=== PATIENT | female | born 1985 | race Caucasian/White ===

== ENCOUNTER 2022-10-05 11:40 | Emergency (ER) | payer BC, SELFPAY ==
[2022-10-05 12:01] VITALS: BP 122/76; PULSE 91; RESP 20; TEMP 36.5; O2SAT 100; BMI 35.5
--- NOTE | 2022-10-05 12:36 | CRLHL7_ITS ---
For Patients: As a result of the Century Cures Act, medical imaging exams and procedure reports are released immediately into your electronic medical record. You may view this report before your referring provider. If you have questions, please contact your health care provider. INDICATION: Foot injury TECHNIQUE: Foot radiograph 3 views left COMPARISON: None FINDINGS: Bone: No acute fractures or aggressive bone lesions are identified. Joint: The visualized hindfoot, midfoot, and forefoot joints are unremarkable in appearance. No significant ankle effusion is seen. Soft tissue: Unremarkable. No radiopaque foreign bodies are seen. IMPRESSION: 1. No acute osseous injuries or abnormalities are noted. Dictated by: Wade Paula MD @ 10/05/2022 13:50:01 (Electronically Signed)
--- NOTE | 2022-10-05 12:45 | ED.GENADULT ---
HPI - General Adult General Date Seen: 10/05/22 Chief complaint: Extremity Pain/Injury, Lower Stated complaint: Rolled LT foot 4 days ago Time Seen by Provider: 10/05/22 12:27 Source: patient History of Present Illness HPI narrative: Patient is a 37-year-old woman who says she rolled her left foot while walking 4 days ago. It continues to hurt with weight-bearing so she thought she should get it checked out. 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 She has had to continue to work the past several days. It is not particularly swollen. Hurts in the mid foot, not so much the lateral foot. No ankle pain. No other injuries or complaints. No numbness or loss of function. Related Data Home Medications Medication Instructions Recorded Confirmed No Known Home Medications 10/05/22 10/05/22 Allergies Allergy/AdvReac Type Severity Reaction Status Date / Time sumatriptan [From Imitrex] Allergy Verified 10/05/22 12:07 topiramate [From Topamax] Allergy Verified 10/05/22 12:07 cefaclor [From Ceclor] AdvReac Unverified 10/05/22 12:07 ibuprofen AdvReac Verified 10/05/22 12:07 some insulins Allergy Uncoded 10/05/22 12:07 Review of Systems Status of ROS: Reports: 6 or more systems reviewed and unremarkable except as noted in History and below [employer] [facility] [facility] Social History Smoking Status: Current every day smoker What tobacco products do you use: cigarettes Do you use any of these nicotine containing products: Vaping Products Second hand tobacco smoke exposure: No How often do you have a drink containing alcohol: never AUDIT-C Alcohol total score: 0 Non-prescribed substance use: former substance user 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 Extremities: Examination of the left lower extremity shows no bruising, swelling, or deformity. She has no tenderness of the lower leg or escobar, proximal fibula, ankle, or lateral foot. She has some tenderness over the midfoot dorsally and on the plantar surface. There is no erythema or warmth. Distal CMS is normal. Skin: Warm and dry. Intact. Const: Vital Signs, click to edit/add: Vital Signs - 24 hr 10/05/22 12:01 Temperature 97.7 F Pulse Rate [Right Pulse Oximeter] 91 Respiratory Rate 20 Blood Pressure [Ri ght Upper Arm] 122/76 Pulse Oximetry 100 Documenting provider has reviewed patient's vital signs: yes Course Course Hospital Course: X-rays obtained of the left foot. By my review these show no acute bony abnormalities. Final radiology report is read likewise. 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 Instead, we will try a postop shoe, ibuprofen and/or Tylenol as needed, ice. Anticipate that this will improve with time. If no improvement over the next couple weeks, follow-up with primary care. Vital Signs Vital signs: Initial Vital Signs Temperature 97.7 F 10/05/22 12:01 Temperature Source Temporal Artery Scan 10/05/22 12:01 Pulse Rate 91 10/05/22 12:01 Respiratory Rate 20 10/05/22 12:01 Blood Pressure 122/76 10/05/22 12:01 Blood Pressure Mean 91 10/05/22 12:01 Pulse Oximetry 100 10/05/22 12:01 Vital Signs Temperature 97.7 F 10/05/22 12:01 Pulse Rate 91 10/05/22 12:01 Respiratory Rate 20 10/05/22 12:01 Blood Pressure 122/76 10/05/22 12:01 Pulse Oximetry 100 10/05/22 12:01 Temperature 97.7 F 10/05/22 12:01 Pulse Rate 91 10/05/22 12:01 Respiratory Rate 20 10/05/22 12:01 Blood Pressure 122/76 10/05/22 12:01 Pulse Oximetry 100 10/05/22 12:01 Discharge Plan Discharge Clinical Impression: Sprain of left foot Patient Disposition: Home, Self-Care Condition: Stable Instructions: Foot Sprain (ED) Additional Instructions: Postop shoe as needed for comfort. Ibuprofen, Tylenol, ice. Primary care follow-up if no improvement over the next 1-2 weeks. Prescriptions: No Action No Known Home Medications Follow Up/Referrals: Shena Aldana MD [Primary Care Provider] - Stand Alone Forms: [facility] Info Instructions
--- NOTE | 2022-10-05 13:00 | ED.NURSE ---
Pt to and back from radiology
== END 2022-10-05 13:45 | disposition home or self-care (01) ==
PROVIDERS: Emergency Provider Emergency Medicine; PCP Family Medicine
DX: S93.602A Unspecified sprain of left foot, initial encounter (principal)
CPT/HCPCS: 73630; 99283

== ENCOUNTER 2022-12-05 17:06 | Emergency (ER) | payer BC, SELFPAY ==
[2022-12-05 17:14] VITALS: BP 135/86; PULSE 88; RESP 18; TEMP 36.4; O2SAT 100; BMI 37.1
--- NOTE | 2022-12-05 17:58 | ED_ITS ---
HPI - General Adult General Time Seen by Provider: 17:58 Date Seen: 12/05/22 Chief complaint: Post Op Complication Stated complaint: Post Op Pain Time Seen by Provider: 12/05/22 17:57 Source: patient and RN notes reviewed Mode of arrival: ambulatory Limitations: no limitations History of Present Illness HPI narrative: Patient is a 37-year-old female that had her gallbladder out about a week ago at [facility]. She is states it was inflamed and her ejection fraction was at 17%. She had oxycodone for the 1st few days and transition to Tylenol after that. She had up post surgical follow-up yesterday and was feeling better. She initially had some pain with breathing and in the shoulders the 1st couple days but that is gone away. She is having no difficulty breathing, no chest pain at this time. 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 She states her pain is worse than what it was before she had her gallbladder out. She has had no acute nausea vomiting diarrhea, no acute fevers. She has been eating and drinking fine prior to this. She is just on Tylenol right now. She does not take ibuprofen because she has intolerance to it and had an overdose with it prior. We reviewed Toradol, she feels it never helps. Did prior to having her gallbladder out, it did not help her pain at all. She is uncomfortable at this time. Related Data Previous Rx's Medication Instructions Recorded azithromycin 250 mg tablet 250 mg PO DAILY 4 days #4 tabs 12/05/22 Allergies Allergy/AdvReac Type Severity Reaction Status Date / Time sumatriptan [From Imitrex] Allergy Verified 10/05/22 12:07 topiramate [From Topamax] Allergy Verified 10/05/22 12:07 cefaclor [From Ceclor] AdvReac Unverified 10/05/22 12:07 ibuprofen AdvReac Verified 10/05/22 12:07 some insulins Allergy Uncoded 10/05/22 12:07 Review of Systems Status of ROS: Reports: 10 or more systems reviewed and unremarkable except as noted in History and below [facility] Surgical History (Updated 12/05/22 @ 21:43 by Elizabeth Caputo MD) Status post cholecystectomy Social History Smoking Status: Current every day smoker What tobacco products do you use: cigarettes Do you use any of these nicotine containing products: Vaping Products Second hand tobacco smoke exposure: No How often do you have a drink containing alcohol: never AUDIT-C Alcohol total score: 0 Non-prescribed substance use: former substance user 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 HENMT: Common normals: normocephalic, head/scalp atraumatic, hearing grossly normal bilaterally, external ears normal, external nose normal, nasal mucous membranes and turbinates normal, moist oral mucous membranes and oropharynx normal Head and scalp: normocephalic and atraumatic Nose: external nose normal and nasal mucous membranes and turbinates normal External ear: external ears normal Eye: Common normals: PERRL, EOMs intact bilaterally, conjunctivae normal and no scleral icterus Conjunctiva: conjunctiva(e) normal Pupil: PERRL Neck & C-Spine: Common normals: full ROM, no lymphadenopathy, supple, no meningeal signs, no JVD, thyroid normal and no carotid bruits Thyroid: thyroid normal Resp: Common normals: normal respiratory effort, no retractions, no use of accessory muscles and clear to auscultation bilaterally Auscultation: clear to auscultation bilaterally Cardio: Common normals: no JVD, regular rate, regular rhythm, S1 normal heart sound, S2 normal heart sound, no gallops, no clicks and no murmurs Rate: regular rate Rhythm: regular rhythm Heart sounds: S1 normal and S2 normal GI: Other: Her surgical scars have glue over them, looked to be clean dry and intact without any evidence of any erythema. She has right upper quadrant tenderness in states that is where her pain is. No true rebound or guarding. Baseline abdomen is obese, cannot say that the pain is out of proportion to what I would fine in of postoperative surgical patient. Certainly does not seem to have an acute surgical abdomen at this time. Neuro: Common normals: oriented x3 Sensorium/orientation: alert Meningeal signs: no meningeal signs Psych: Appearance: well kempt Course Course Hospital Course: Have reviewed with patient that I will give her dose of morphine for pain management. Unfortunately, I do not feel with her symptoms that they can reassure her that nothing internally is wrong without imaging. She states when she reviewed her discharge surgical papers, she felt that she was supposed to come in given her symptoms. We will check of full complement of labs. Need to rule out postoperative complications. Reevaluation(s) Reevaluation #1: Have reviewed with patient her CT findings. There may be a focus of infection within the right lower lobe. She has had recent surgery with intubation, is a smoker, do feel with mildly elevated white count in the CT showing no other changes within the abdomen, no concerning postsurgical changes, would consider treating with oral antibiotics for respiratory infection. She unfortunately is allergic to cephalosporins. Will give her oral dose of azithromycin here t onight and send the rest of the prescription into the pharmacy for her. Did provide her a copy of the CT report to take to her surgeon or her primary care provider, may need further follow-up for a right adrenal nodule on an outpatient basis. Time: 21:37 Vital Signs Vital signs: Initial Vital Signs Temperature 97.6 F 12/05/22 17:14 Temperature Source Temporal Artery Scan 12/05/22 17:14 Pulse Rate 88 12/05/22 17:14 Respiratory Rate 18 12/05/22 17:14 Blood Pressure 135/86 12/05/22 17:14 Blood Pressure Mean 102 12/05/22 17:14 Blood Pressure Position Sitting 12/05/22 17:14 Pulse Oximetry 100 12/05/22 17:14 Oxygen Delivery Method 12/05/22 17:14 Vital Signs Temperature 97.6 F 12/05/22 17:14 Pulse Rate 88 12/05/22 17:14 Respiratory Rate 18 12/05/22 17:14 Blood Pressure 135/86 12/05/22 17:14 Pulse Oximetry 100 12/05/22 17:14 Oxygen Delivery Method 12/05/22 17:14 Temperature 97.6 F 12/05/22 17:14 Pulse Rate 88 12/05/22 17:14 Respiratory Rate 16 12/05/22 18:25 Blood Pressure 113/68 12/05/22 18:25 Pulse Oximetry 96 12/05/22 18:25 Oxygen Delivery Method 12/05/22 18:25 Medical Decision Making Lab Data Lab results reviewed: Yes I reviewed the patient's lab results Labs: Lab Results 12/05/22 12/05/22 12/05/22 Range/Units 18:20 18:20 18:20 WBC 14.20 H (4.50-11.00) K/uL RBC 4.60 (4.00-5.20) m/uL Hgb 12.6 (12.0-16.0) gm/dL Hct 38.7 (33.0-51.0) % MCV 84 (80-100) fL MCH 27 (26-34) pg MCHC 33 (32-36) gm/dL RDW Coeff of Sammi 14.6 (11.5-15.5) % Plt Count 592 H (140-440) K/uL Neut % (Auto) 53.0 (42.0-72.0) % Lymph % (Auto) 38.9 (20-44) % Cotton % (Auto) 4.5 (0.0-11.0) % Eos % (Auto) 3.0 (0.0-7.0) % Baso % (Auto) 0.5 (0.0-3.0) % Neut # (Auto) 7.50 H (1.7-7.0) K/uL Lymph # (Auto) 5.50 H (0.90-2.90) K/uL Cotton # (Auto) 0.60 (0.00-0.90) K/UL Eos # (Auto) 0.40 (0.00-0.50) K/uL Baso # (Auto) 0.10 (0.00-0.30) K/uL Sodium 140 (135-149) mmol/L Potassium 3.5 L (3.6-5.1) mmol/L Chloride 105 (96-114) mmol/L Carbon Dioxide 26 (20-32) mmol/L BUN 13 (5-24) mg/dL Creatinine 0.5 (0.5-1.5) mg/dL Estimated Creat Clear 142.81 Estimated GFR 123 ml/min Glucose 101 (60-115) mg/dL Lactate 1.3 (0.5-1.9) mmol/L Calcium 9.6 (8.4-10.6) mg/dL Total Bilirubin 0.3 (0.1-1.5) mg/dL AST 21 (12-35) U/L ALT 27 (4-35) U/L Alkaline Phosphatase 98 (40-150) U/L C-Reactive Protein 1.4 H (0.5-1.0) mg/dL Total Protein 8.2 (6.0-8.3) g/dL Albumin 4.5 (3.3-5.0) g/dL Lipase 101 (23-300) U/L Imaging Data CT scan - abdomen: Attestation: I have reviewed the pertinent imaging results. Radiologist's impression: Patient: EUGENIO DELGADO Facility:?[facility] Patient ID:?[id number] Site Patient ID:?[id number]. Site :?[id number] Study:?CT Abdomen/Pelvis W/ISOVUE 370 99CC-12/05/2022 9:02:17 PM Ordering Physician:Christa Johnson Final Report: INDICATION: Increasing right upper quadrant pain. Cholecystectomy 1 week prior. TECHNIQUE: CT abdomen and pelvis acquired with 99 cc Isovue 370 IV contrast. COMPARISON: None. FINDINGS: Lower chest: Right lower lobe peripheral centrilobular nodular ground-glass airspace opacities, axial images 7 through 44. ABDOMEN: Liver: Normal enhancement. No focal suspicious hepatic lesions. Subcentimeter hypodensity in the right hepatic lobe is too small to characterize. Gallbladder and biliary: Postoperative changes cholecystectomy. Trace amount free fluid in the cholecystectomy space and punctate foci of free air should be postsurgical. Normal caliber bile ducts. Spleen: Normal size and enhancement. Pancreas: Normal enhancement without peripancreatic inflammatory changes or ductal dilatation. Adrenal glands: Right adrenal nodule measuring 16 millimeters is incompletely characterized on this exam. Normal left adrenal gland. Kidneys and ureters: Normal enhancement. No radio-opaque calculi. No hydroureteronephrosis. GI tract: The stomach is relatively decompressed. Normal caliber small and large bowel loops. Normal appendix versus appendiceal stump. Moderate volume colonic stool. Vascular structures: Patent abdominal aorta and side branches. Patent portosplenic confluence, portal veins, and hepatic veins. Lymph nodes: No lymphadenopathy in the abdomen or pelvis by size criteria. Peritoneum: Trace free air, which should be postsurgical. No focal drainable fluid collections. PELVIS: Genitourinary system: Normal urinary bladder. Age-appropriate uterus and ovaries. SKELETAL STRUCTURES AND SOFT TISSUES: Paraumbilical midline stranding with trace amount of subcutaneous gas which should be postsurgical. Disc osteophyte complex of L5-S1 causing at least effacement of the anterior thecal sac with associated disc space height loss. IMPRESSION: 1. Expected postoperative changes of cholecystectomy. No focal drainable fluid collections. No discrete findings postoperative complication. 2. Right lower centrilobular nodular airspace opacities likely reflecting cellular bronchiolitis of infectious/inflammatory etiology. 3. 16 millimeter right adrenal nodule is incompletely characterized on this exam. Recommend correlation with prior exams to document stability over time versus consider dedicated non emergent adrenal protocol CT or MRI. Please note that all CT scans at this facility use dose modulation, iterative reconstruction, and/or weight-based dosing when appropriate to reduce radiation dose to as low as reasonably achievable. Dictated by Chidi Caldwell MD @ 12/05/2022 9:17:08 PM (Electronic Signature) Critical Care Time Critical Care Time Critical Care Time: No Discharge Plan Discharge Clinical Impression: Right upper quadrant abdominal pain, Infiltrate of lung present on imaging of chest, Status post cholecystectomy Condition: Stable Instructions: Bacterial Pneumonia (ED), Laparoscopic Cholecystectomy (DC) Additional Instructions: Continue oral antibiotics with next dose due tomorrow evening. If you have ongoing right upper quadrant abdominal pain, do recommend follow-up with your surgeon or your primary care provider. I would recommend you schedule with your primary care provider for follow-up with in the next week to recheck anyway. Ongoing Tylenol for pain management, if you think you need further pain meds for your abdominal pain, I refer you back to your surgeon. Review handouts, seek re-evaluation for any further concerns. Activity Detail: Activity as defined by your postoperative instructions from your surgeon Prescriptions: New azithromycin 250 mg tablet 250 mg PO DAILY 4 Days Qty: 4 0RF Rx Instructions: start on day 2 of therapy Follow Up/Referrals: Shena Aldana MD [Primary Care Provider] - Stand Alone Forms: [facility] Info Instructions
[2022-12-05 18:08] VITALS: O2SAT 95
--- NOTE | 2022-12-05 18:09 | CRLHL7_ITS ---
For Patients: As a result of the Century Cures Act, medical imaging exams and procedure reports are released immediately into your electronic medical record. You may view this report before your referring provider. If you have questions, please contact your health care provider. INDICATION: Increasing right upper quadrant pain. Cholecystectomy 1 week prior. TECHNIQUE: CT abdomen and pelvis acquired with 99 cc Isovue 370 IV contrast. COMPARISON: None. FINDINGS: Lower chest: Right lower lobe peripheral centrilobular nodular ground-glass airspace opacities, axial images 7 through 44. ABDOMEN: Liver: Normal enhancement. No focal suspicious hepatic lesions. Subcentimeter hypodensity in the right hepatic lobe is too small to characterize. Gallbladder and biliary: Postoperative changes cholecystectomy. Trace amount free fluid in the cholecystectomy space and punctate foci of free air should be postsurgical. Normal caliber bile ducts. Spleen: Normal size and enhancement. Pancreas: Normal enhancement without peripancreatic inflammatory changes or ductal dilatation. Adrenal glands: Right adrenal nodule measuring 16 millimeters is incompletely characterized on this exam. Normal left adrenal gland. Kidneys and ureters: Normal enhancement. No radio-opaque calculi. No hydroureteronephrosis. GI tract: The stomach is relatively decompressed. Normal caliber small and large bowel loops. Normal appendix versus appendiceal stump. Moderate volume colonic stool. Vascular structures: Patent abdominal aorta and side branches. Patent portosplenic confluence, portal veins, and hepatic veins. Lymph nodes: No lymphadenopathy in the abdomen or pelvis by size criteria. Peritoneum: Trace free air, which should be postsurgical. No focal drainable fluid collections. PELVIS: Genitourinary system: Normal urinary bladder. Age-appropriate uterus and ovaries. SKELETAL STRUCTURES AND SOFT TISSUES: Paraumbilical midline stranding with trace amount of subcutaneous gas which should be postsurgical. Disc osteophyte complex of L5-S1 causing at least effacement of the anterior thecal sac with associated disc space height loss. IMPRESSION: 1. Expected postoperative changes of cholecystectomy. No focal drainable fluid collections. No discrete findings postoperative complication. 2. Right lower centrilobular nodular airspace opacities likely reflecting cellular bronchiolitis of infectious/inflammatory etiology. 3. 16 millimeter right adrenal nodule is incompletely characterized on this exam. Recommend correlation with prior exams to document stability over time versus consider dedicated non emergent adrenal protocol CT or MRI. Please note that all CT scans at this facility use dose modulation, iterative reconstruction, and/or weight-based dosing when appropriate to reduce radiation dose to as low as reasonably achievable. Dictated by Chidi Caldwell MD @ 12/05/2022 9:17:08 PM (Electronically Signed)
[2022-12-05 18:25] VITALS: BP 113/68; RESP 16; O2SAT 96
[2022-12-05 18:25] LABS: Lactate* 1.3 mmol/L (0.5-1.9)
[2022-12-05 18:26] LABS: Basophils Percent Auto 0.5 % (0.0-3.0); Hematocrit 38.7 % (33.0-51.0); Hemoglobin* 12.6 gm/dL (12.0-16.0); Immature Granulocytes Pct Auto 0.1 %; Lymphocytes Percent Auto 38.9 % (20-44); Mean Corpuscular HGB Conc 33 gm/dL (32-36); Mean Corpuscular Hemoglobin 27 pg (26-34); Mean Corpuscular Volume 84 fL (80-100); Monocytes Percent Auto 4.5 % (0.0-11.0); Platelet Count* 592 K/uL (140-440); RDW Coefficient of Variation % 14.6 % (11.5-15.5)
[2022-12-05] MEDS: MORPHINE 4 MG/ML INJ IVP (18:26)
[2022-12-05 18:41] LABS: Albumin* 4.5 g/dL (3.3-5.0); Chloride* 105 mmol/L (96-114); Sodium* 140 mmol/L (135-149)
[2022-12-05 18:42] LABS: Potassium* 3.5 mmol/L (3.6-5.1)
[2022-12-05 18:43] LABS: Creatinine* 0.5 mg/dL (0.5-1.5); Est. Creatinine Clearance* 142.81; Estimated Glomerular Filt Rate 123 ml/min
[2022-12-05 18:44] LABS: Alanine Aminotransferase* 27 U/L (4-35); Alkaline Phosphatase* 98 U/L (40-150); Aspartate Amino Transferase* 21 U/L (12-35); Bilirubin Total* 0.3 mg/dL (0.1-1.5); Blood Urea Nitrogen* 13 mg/dL (5-24); Carbon Dioxide* 26 mmol/L (20-32); Glucose* 101 mg/dL (60-115); Lipase* 101 U/L (23-300); Total Protein* 8.2 g/dL (6.0-8.3)
[2022-12-05 18:45] LABS: Calcium* 9.6 mg/dL (8.4-10.6)
[2022-12-05 18:47] LABS: C Reactive Protein* 1.4 mg/dL (0.5-1.0)
[2022-12-05 18:48] LABS: Slide Review Reflex No
[2022-12-05] MEDS: AZITHROMYCIN 250 MG TABLET 500 MG PO (21:56)
[2022-12-05 22:00] VITALS: BP 121/72; PULSE 76; RESP 16; TEMP 36.8
== END 2022-12-05 22:00 | disposition home or self-care (01) ==
PROVIDERS: Emergency Provider Family Medicine; PCP Family Medicine
DX: R10.11 Right upper quadrant pain (principal); R91.8 Other nonspecific abnormal finding of lung field
CPT/HCPCS: 36415; 74177; 80053; 83605; 83690; 85025; 86140; 94761; 96374; 99284; 99285; A9270; J2270; Q9967

== ENCOUNTER 2023-01-10 21:23 | Emergency (ER) | payer BC, SELFPAY ==
[2023-01-10 21:57] VITALS: BP 122/83; PULSE 76; RESP 16; TEMP 36.4; O2SAT 98; BMI 36.0
--- NOTE | 2023-01-10 22:08 | ED_ITS ---
HPI - Weakness General Chief complaint: Unspecified Complaint, Adult Stated complaint: Possible reaction to medication Time Seen by Provider: 01/10/23 22:04 History of Present Illness HPI Narrative: Pt is a 37 year old woman who hasnt taken her medications for hypertension and diabetes for the past week that presents not feeling well with generalized weakness. Pt has been taking her Naltrexone to help with her addiction issues and states that she has not been using any illicit substances. Pt has had no chest pain, shortness of breath, nausea or vomiting. No specific neurological symptoms. Pt states that she has been eating normally and has had no dysuria or change in her bowels. No change in sensorium. Pt overall just doesn't feel right. Related Data Home Medications Medication Instructions Recorded Confirmed amlodipine 5 mg tablet mg 01/10/23 bupropion HCl 150 mg 24 hr tablet, mg PO 01/10/23 extended release (Wellbutrin XL) citalopram 20 mg tablet mg 01/10/23 empagliflozin 25 mg tablet mg 01/10/23 (Jardiance) ergocalciferol (vitamin D2) 1,250 01/10/23 mcg (50,000 unit) capsule famotidine 20 mg tablet mg 01/10/23 gemfibrozil 600 mg tablet mg 01/10/23 lisinopril 10 mg tablet mg 01/10/23 metformin 1,000 mg tablet mg 01/10/23 naltrexone 50 mg tablet mg 01/10/23 simvastatin 20 mg tablet mg 01/10/23 verapamil 240 mg 24 hr mg PO 01/10/23 capsule,extended release Previous Rx's Medication Instructions Recorded azithromycin 250 mg tablet 250 mg PO DAILY 4 days #4 tabs 12/05/22 Allergies Allergy/AdvReac Type Severity Reaction Status Date / Time sumatriptan [From Imitrex] Allergy Verified 10/05/22 12:07 topiramate [From Topamax] Allergy Verified 10/05/22 12:07 cefaclor [From Ceclor] AdvReac Unverified 10/05/22 12:07 ibuprofen AdvReac Verified 10/05/22 12:07 some insulins Allergy Uncoded 10/05/22 12:07 Review of Systems Status of ROS: Reports: 10 or more systems reviewed and unremarkable except as noted in History and below [facility] Medical History (Updated 01/10/23 @ 23:56 by Ortega Graham MD) Anxiety Cardiomyopathy Diabetes GERD (gastroesophageal reflux disease) Hypertension Surgical History (Updated 12/20/22 @ 00:00 by ) Status post cholecystectomy Social History Smoking Status: Current every day smoker What tobacco products do you use: cigarettes Do you use any of these nicotine containing products: Vaping Products Second hand tobacco smoke exposure: No How often do you have a drink containing alcohol: never AUDIT-C Alcohol total score: 0 Non-prescribed substance use: former substance user 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 EYES: No scleral icterus. LYMPH: No supraclavicular or cervical lymphadenopathy. SKIN: Visible skin seen during exam normal or with benign process only. EXT: No dependent lower extremity pedal edema. HEART: Regular rate and rhythm with no murmurs, rubs, or gallops. LUNGS: Clear to auscultation bilaterally with no crackles or wheezes. ABD: Soft, non tender, non distended. PSYCH: Good eye contact, speech is not pressured. Const: Vital Signs, click to edit/add: Vital Signs - 24 hr 01/10/23 21:57 Temperature 97.6 F Pulse Rate [Pulse Oximeter] 76 Respiratory Rate 16 Blood Pressure [Ri ght Upper Arm] 122/83 Pulse Oximetry 98 Oxygen Delivery Me thod Room Air Course Course Hospital Course: EKG, Chest X ray, Troponin, CBC, CMP, ETOH, Urine tox, UA pending Vital Signs Vital signs: Initial Vital Signs Temperature 97.6 F 01/10/23 21:57 Temperature Source Temporal Artery Scan 01/10/23 21:57 Pulse Rate 76 01/10/23 21:57 Pulse Rhythm 01/10/23 21:57 Respiratory Rate 16 01/10/23 21:57 Blood Pressure 122/83 01/10/23 21:57 Blood Pressure Mean 96 01/10/23 21:57 Blood Pressure Position Sitting 01/10/23 21:57 Pulse Oximetry 98 01/10/23 21:57 Oxygen Delivery Method 01/10/23 21:57 Vital Signs Temperature 97.6 F 01/10/23 21:57 Pulse Rate 76 01/10/23 21:57 Respiratory Rate 16 01/10/23 21:57 Blood Pressure 122/83 01/10/23 21:57 Pulse Oximetry 98 01/10/23 21:57 Oxygen Delivery Method 01/10/23 21:57 Temperature 97.6 F 01/10/23 21:57 Pulse Rate 76 01/10/23 21:57 Respiratory Rate 16 01/10/23 21:57 Blood Pressure 122/83 01/10/23 21:57 Pulse Oximetry 98 01/10/23 21:57 Oxygen Delivery Method 01/10/23 21:57 MDM - Weakness MDM Narrative Medical decision making narrative: Pt is a 37 year old woman who presents just not feeling right. She has been noncompliant with all of her medications except for Naltrexone which she took today. I did a careful exam which was normal. Her vitals are normal. Pt's labs are reassuring as I did not see any specific cause for concern. EKG upon my review is normal as her chest x ray. At this time, I recommend that she resume her home medications and follow up with her primary doctor. Differential Diagnosis Differential diagnosis: Likely acute myocardial infarction, anemia, hypoglycemia, rhabdomyolysis, sepsis and dehydration Lab Data Labs: Lab Results 01/10/23 01/10/23 01/10/23 Range/Units 21:15 21:15 22:29 WBC 12.52 H (4.50-11.00) K/uL RBC 3.49 L (4.00-5.20) m/uL Hgb 9.6 L (12.0-16.0) gm/dL Hct 29.8 L (33.0-51.0) % MCV 85 (80-100) fL MCH 28 (26-34) pg MCHC 32 (32-36) gm/dL RDW Coeff of Sammi 16.0 H (11.5-15.5) % Plt Count 478 H (140-440) K/uL Neut % (Auto) 67.4 (42.0-72.0) % Lymph % (Auto) 23.3 (20-44) % [place] % (Auto) 5.7 (0.0-11.0) % Eos % (Auto) 1.9 (0.0-7.0) % Baso % (Auto) 0.5 (0.0-3.0) % Neut # (Auto) 8.40 H (1.7-7.0) K/uL Lymph # (Auto) 2.90 (0.90-2.90) K/uL [place] # (Auto) 0.70 (0.00-0.90) K/UL Eos # (Auto) 0.20 (0.00-0.50) K/uL Baso # (Auto) 0.10 (0.00-0.30) K/uL Sodium (135-149) mmol/L Potassium (3.6-5.1) mmol/L Chloride (96-114) mmol/L Carbon Dioxide (20-32) mmol/L BUN (5-24) mg/dL Creatinine (0.5-1.5) mg/dL Estimated Creat Clear Estimated GFR ml/min Glucose (60-115) mg/dL Calcium (8.4-10.6) mg/dL Total Bilirubin (0.1-1.5) mg/dL AST (12-35) U/L ALT (4-35) U/L Alkaline Phosphatase (40-150) U/L Troponin I (0.01-0.04) ng/mL Total Protein (6.0-8.3) g/dL Albumin (3.3-5.0) g/dL Urine Color Yellow (Yellow) Urine Appearance Clear (Clear) Urine pH 7.5 (5.0-8.5) Ur Specific [place] 1.015 (1.000-1.030) Urine Protein Negative (Negative) Urine Glucose (UA) 3+ A (Negative) Urine Ketones Negative (Negative) Urine Blood Negative (Negative) Urine Nitrite Negative (Negative) Urine Bilirubin Negative (Negative) Urine Urobilinogen 0.2 (0.2-1.0) Ur Leukocyte Esterase Negative (Negative) Urine Opiates Screen Negative (Negative) Ur Oxycodone Screen Negative (Negative) Urine Methadone Screen Negative (Negative) Ur Propoxyphene Screen Negative (Negative) Ur Barbiturates Screen Negative (Negative) U Tricyclic Antidepress POSITIVE A* (Negative) Ur Phencyclidine Scrn Negative (Negative) Ur Amphetamines Screen Negative (Negative) U Methamphetamines Scrn Negative (Negative) U Benzodiazepines Scrn Negative (Negative) Urine Cocaine Screen Negative (Negative) U Marijuana (THC) Screen Negative (Negative) Ur Drug Screen Comment See Note Ethyl Alcohol (0.01-0.03) % 01/10/23 Range/Units 22:29 WBC (4.50-11.00) K/uL RBC (4.00-5.20) m/uL Hgb (12.0-16.0) gm/dL Hct (33.0-51.0) % MCV (80-100) fL MCH (26-34) pg MCHC (32-36) gm/dL RDW Coeff of Sammi (11.5-15.5) % Plt Count (140-440) K/uL Neut % (Auto) (42.0-72.0) % Lymph % (Auto) (20-44) % [place] % (Auto) (0.0-11.0) % Eos % (Auto) (0.0-7.0) % Baso % (Auto) (0.0-3.0) % Neut # (Auto) (1.7-7.0) K/uL Lymph # (Auto) (0.90-2.90) K/uL [place] # (Auto) (0.00-0.90) K/UL Eos # (Auto) (0.00-0.50) K/uL Baso # (Auto) (0.00-0.30) K/uL Sodium 138 (135-149) mmol/L Potassium 3.3 L (3.6-5.1) mmol/L Chloride 109 (96-114) mmol/L Carbon Dioxide 26 (20-32) mmol/L BUN 7 (5-24) mg/dL Creatinine 0.5 (0.5-1.5) mg/dL Estimated Creat Clear 148.35 Estimated GFR 123 ml/min Glucose 92 (60-115) mg/dL Calcium 8.3 L (8.4-10.6) mg/dL Total Bilirubin 0.4 (0.1-1.5) mg/dL AST 22 (12-35) U/L ALT 21 (4-35) U/L Alkaline Phosphatase 58 (40-150) U/L Troponin I < 0.01 L (0.01-0.04) ng/mL Total Protein 6.6 (6.0-8.3) g/dL Albumin 3.6 (3.3-5.0) g/dL Urine Color (Yellow) Urine Appearance (Clear) Urine pH (5.0-8.5) Ur Specific [place] (1.000-1.030) Urine Protein (Negative) Urine Glucose (UA) (Negative) Urine Ketones (Negative) Urine Blood (Negative) Urine Nitrite (Negative) Urine Bilirubin (Negative) Urine Urobilinogen (0.2-1.0) Ur Leukocyte Esterase (Negative) Urine Opiates Screen (Negative) Ur Oxycodone Screen (Negative) Urine Methadone Screen (Negative) Ur Propoxyphene Screen (Negative) Ur Barbiturates Screen (Negative) U Tricyclic Antidepress (Negative) Ur Phencyclidine Scrn (Negative) Ur Amphetamines Screen (Negative) U Methamphetamines Scrn (Negative) U Benzodiazepines Scrn (Negative) Urine Cocaine Screen (Negative) U Marijuana (THC) Screen (Negative) Ur Drug Screen Comment Ethyl Alcohol < 0.01 L (0.01-0.03) % Discharge Plan Discharge Clinical Impression: Weakness Condition: Stable Instructions: Weakness (ED) Additional Instructions: Resume home medications Follow up with your doctor this week. Activity Level: Activity as Tolerated Discharge Diet: Regular Prescriptions: No Action azithromycin 250 mg tablet 250 mg PO DAILY 4 Days Qty: 4 0RF Rx Instructions: start on day 2 of therapy naltrexone 50 mg tablet Label Comments: Take 1 tablet by mouth once a day amlodipine 5 mg tablet citalopram 20 mg tablet Label Comments: TAKE ONE TABLET BY MOUTH EVERY MORNING famotidine 20 mg tablet Label Comments: TAKE 1 TABLET (20 MG) BY MOUTH TWO TIMES DAILY. gemfibrozil 600 mg tablet Label Comments: TAKE ONE TABLET BY MOUTH TWICE A DAY simvastatin 20 mg tablet Label Comments: TAKE ONE TABLET BY MOUTH ONE TIME DAILY metformin 1,000 mg tablet Label Comments: TAKE ONE TABLET BY MOUTH TWICE A DAY lisinopril 10 mg tablet Label Comments: TAKE ONE TABLET BY MOUTH DAILY ergocalciferol (vitamin D2) 1,250 mcg (50,000 unit) capsule Label Comments: TAKE ONE CAPSULE BY MOUTH ONCE WEEKLY verapamil 240 mg capsule,ext rel. pellets 24 hr PO Label Comments: TAKE ONE CAPSULE BY MOUTH EVERY MORNING bupropion HCl [Wellbutrin XL] 150 mg tablet extended release 24 hr PO Label Comments: Take 1 tablet by mouth once a day - add to 300mg dose for 450mg total Jardiance 25 mg tablet Label Comments: TAKE ONE TABLET BY MOUTH ONE TIME DAILY Follow Up/Referrals: Shena Aldana MD [Primary Care Provider] - Stand Alone Forms: [employer] Info Instructions
--- NOTE | 2023-01-10 22:14 | CRLHL7_ITS ---
For Patients: As a result of the Century Cures Act, medical imaging exams and procedure reports are released immediately into your electronic medical record. You may view this report before your referring provider. If you have questions, please contact your health care provider. INDICATION: Weakness TECHNIQUE: Chest radiograph 1 view COMPARISON: 11/12/2017 FINDINGS: The sensitivity and specificity of the exam are moderately limited by the patient`s body habitus. Mediastinum: The mediastinum is normal in appearance. The heart silhouette is normal in size and morphology. Lung: Both lungs are unremarkable in appearance. No sign of pleural effusion seen. No pneumothorax is identified. Bone and Soft tissue: Unremarkable for age. IMPRESSION: 1. No acute cardiopulmonary disease is seen. Dictated by: Wade Paula MD @ 01/10/2023 22:58:15 (Electronically Signed)
[2023-01-10 22:38] LABS: Amphetamine Screen Urine Negative (Negative); Barbiturate Screen Urine Negative (Negative); Benzodiazepines Screen Urine Negative (Negative); Cannabinoid Screen Urine Negative (Negative); Cocaine Screen Urine Negative (Negative); Methadone Screen Urine Negative (Negative); Methamphetamines Screen Urine Negative (Negative); Opiate Screen Urine Negative (Negative); Oxycodone Screen Urine Negative (Negative); Phencyclidine Screen Urine Negative (Negative)
[2023-01-10 22:43] LABS: Tricyclic Antidepressant Urine POSITIVE (Negative)
[2023-01-10 22:50] LABS: Albumin* 3.6 g/dL (3.3-5.0)
[2023-01-10 22:51] LABS: Chloride* 109 mmol/L (96-114); Potassium* 3.3 mmol/L (3.6-5.1); Sodium* 138 mmol/L (135-149)
[2023-01-10 22:53] LABS: Aspartate Amino Transferase* 22 U/L (12-35); Bilirubin Total* 0.4 mg/dL (0.1-1.5); Blood Urea Nitrogen* 7 mg/dL (5-24); Carbon Dioxide* 26 mmol/L (20-32); Creatinine* 0.5 mg/dL (0.5-1.5); Est. Creatinine Clearance* 148.35; Estimated Glomerular Filt Rate 123 ml/min; Total Protein* 6.6 g/dL (6.0-8.3)
[2023-01-10 22:54] LABS: Alanine Aminotransferase* 21 U/L (4-35); Alkaline Phosphatase* 58 U/L (40-150); Calcium* 8.3 mg/dL (8.4-10.6); Glucose* 92 mg/dL (60-115)
[2023-01-10 23:00] LABS: Appearance Urine Clear (Clear); Bilirubin Urine Negative (Negative); Blood Urine Negative (Negative); Color Urine Yellow (Yellow); Glucose Urine 3+ (Negative); Ketones Urine Negative (Negative); Leukocyte Esterase Urine Negative (Negative); Nitrite Urine Negative (Negative); Protein Urine Negative (Negative); Specific Gravity Urine 1.015 (1.000-1.030); Urobilinogen Urine 0.2 (0.2-1.0); pH Urine 7.5 (5.0-8.5)
[2023-01-10 23:04] LABS: Basophils Percent Auto 0.5 % (0.0-3.0); Eosinophils Percent Auto 1.9 % (0.0-7.0); Ethanol* < 0.01 % (0.01-0.03); Hematocrit 29.8 % (33.0-51.0); Hemoglobin* 9.6 gm/dL (12.0-16.0); Immature Granulocytes Pct Auto 1.2 %; Lymphocytes Percent Auto 23.3 % (20-44); Mean Corpuscular HGB Conc 32 gm/dL (32-36); Mean Corpuscular Hemoglobin 28 pg (26-34); Mean Corpuscular Volume 85 fL (80-100); Monocytes Percent Auto 5.7 % (0.0-11.0); Neutrophils Percent Auto 67.4 % (42.0-72.0); Platelet Count* 478 K/uL (140-440); Red Blood Count 3.49 m/uL (4.00-5.20); White Blood Count* 12.52 K/uL (4.50-11.00)
[2023-01-10 23:09] LABS: Slide Review Reflex No
[2023-01-10 23:23] LABS: Troponin I* < 0.01 ng/mL (0.01-0.04)
[2023-01-11 00:38] VITALS: BP 118/79; PULSE 81; RESP 16; TEMP 36.4
== END 2023-01-11 00:39 | disposition home or self-care (01) ==
PROVIDERS: Emergency Provider Internal Medicine; PCP Family Medicine
DX: R53.1 Weakness (principal)
CPT/HCPCS: 36415; 71045; 80053; 80306; 81003; 82077; 84484; 85025; 93005; 99283; 99284; 99285

== ENCOUNTER 2023-02-06 16:40 | Emergency (ER) | payer BC, SELFPAY ==
[2023-02-06 16:52] VITALS: BP 134/101; PULSE 86; RESP 18; TEMP 36.8; O2SAT 99; BMI 45.2
--- NOTE | 2023-02-06 17:08 | ED_ITS ---
HPI - General Adult General Chief complaint: Extremity Pain/Injury, Upper Stated complaint: L shoulder pain Time Seen by Provider: 02/06/23 16:42 History of Present Illness HPI narrative: This 37-year-old female comes in reporting left shoulder pain that is been worsening over the past months and more recently in the past few days or week or so. She does not report any injury event or strenuous activity to bring on these symptoms. 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 She states that she is having difficulty sleeping at night due to pain in her left shoulder. Related Data Home Medications Medication Instructions Recorded Confirmed amlodipine 5 mg tablet mg 01/10/23 bupropion HCl 150 mg 24 hr tablet, mg PO 01/10/23 extended release (Wellbutrin XL) citalopram 20 mg tablet mg 01/10/23 empagliflozin 25 mg tablet mg 01/10/23 (Jardiance) ergocalciferol (vitamin D2) 1,250 01/10/23 mcg (50,000 unit) capsule famotidine 20 mg tablet mg 01/10/23 gemfibrozil 600 mg tablet mg 01/10/23 lisinopril 10 mg tablet mg 01/10/23 metformin 1,000 mg tablet mg 01/10/23 naltrexone 50 mg tablet mg 01/10/23 simvastatin 20 mg tablet mg 01/10/23 verapamil 240 mg 24 hr mg PO 01/10/23 capsule,extended release Previous Rx's Medication Instructions Recorded azithromycin 250 mg tablet 250 mg PO DAILY 4 days #4 tabs 12/05/22 Allergies Allergy/AdvReac Type Severity Reaction Status Date / Time sumatriptan [From Imitrex] Allergy Verified 10/05/22 12:07 topiramate [From Topamax] Allergy Verified 10/05/22 12:07 cefaclor [From Ceclor] AdvReac Unverified 10/05/22 12:07 ibuprofen AdvReac Verified 10/05/22 12:07 some insulins Allergy Uncoded 10/05/22 12:07 Review of Systems Status of ROS: Reports: 10 or more systems reviewed and unremarkable except as noted in History and below Narrative: Constitutional: No fevers, no weight gain or loss. Eyes: No discharge. No vision changes. HENT: No congestion, no sore throat, no ear pain. Cardiovascular: No chest pain, no palpitations. Respiratory: No shortness of breath, no wheezes, no cough. Gastrointestinal: No abdominal pain, no vomiting, no diarrhea. Genitourinary: No dysuria, no hematuria. Musculoskeletal: Decreased range of motion due to pain. She states that she has a hard time getting her left arm up above her head. Skin: No rashes, no pruritis. Neurological: No dizziness, weakness, sensory change, speech change. Endo/Heme/Allergies: No bruising or bleeding. No polydipsia. Pysch: no suicidality, no anxiety, no insomnia. All other systems reviewed and are negative. [facility] Medical History (Updated 02/06/23 @ 18:06 by Deandre Madison MD) Anxiety ?F41.9 - Anxiety disorder, unspecified (ICD-10) Cardiomyopathy ?I42.9 - Cardiomyopathy, unspecified (ICD-10) Diabetes ?E11.9 - Type 2 diabetes mellitus without complications (ICD-10) GERD (gastroesophageal reflux disease) ?K21.9 - Gastro-esophageal reflux disease without esophagitis (ICD-10) Hypertension ?I10 - Essential (primary) hypertension (ICD-10) Surgical History (Updated 12/20/22 @ 00:00 by ) Status post cholecystectomy ?Z90.49 - Acquired absence of other specified parts of digestive tract (ICD- 10) Social History Smoking Status: Current every day smoker What tobacco products do you use: cigarettes Do you use any of these nicotine containing products: Vaping Products Second hand tobacco smoke exposure: No How often do you have a drink containing alcohol: never AUDIT-C Alcohol total score: 0 Non-prescribed substance use: former substance user 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 HEENT: Normocephalic, atraumatic. Neck: Normal range of motion. Nontender. Supple. Heart: Regular. No murmurs. Normal rate. Intact distal pulses. Lungs: Clear to auscultation. No chest discomfort. No wheezes, rhonchi, or rales. Abdomen: Normal bowel sounds. Nontender. No rebound tenderness. Genitalia: Deferred. Back: No midline tenderness. Normal range of motion. Extremities: Left shoulder appears normal without sign of injury, deformity, or point tenderness when palpating around her shoulder. She is able to perform empty can sign and lift-off sign but does so with pain. She also has pain with external rotation. Skin: Intact. No rash. Warm. No erythema or pallor. Neurologic: No altered sensation. No weakness. Alert and oriented. Psychiatric: No suicidality. No anxiety or depression. No insomnia. Nursing notes and vitals signs are reviewed. Const: Vital Signs, click to edit/add: Vital Signs - 24 hr 02/06/23 16:52 Temperature 98.2 F Pulse Rate [Pulse Oximeter] 86 Respiratory Rate 18 Blood Pressure [[facility] Upper Arm] 134/101 H Pulse Oximetry 99 Oxygen Delivery Me thod Room Air Course Vital Signs Vital signs: Initial Vital Signs Temperature 98.2 F 02/06/23 16:52 Temperature Source Temporal Artery Scan 02/06/23 16:52 Pulse Rate 86 02/06/23 16:52 Pulse Rhythm Regular 02/06/23 16:52 Pulse Strength 3+ Normal 02/06/23 16:52 Respiratory Rate 18 02/06/23 16:52 Blood Pressure 134/101 H 02/06/23 16:52 Blood Pressure Mean 112 02/06/23 16:52 Blood Pressure Position Sitting 02/06/23 16:52 Pulse Oximetry 99 02/06/23 16:52 Oxygen Delivery Method Room Air 02/06/23 16:52 Vital Signs Temperature 98.2 F 02/06/23 16:52 Pulse Rate 86 02/06/23 16:52 Respiratory Rate 18 02/06/23 16:52 Blood Pressure 134/101 H 02/06/23 16:52 Pulse Oximetry 99 02/06/23 16:52 Oxygen Delivery Method Room Air 02/06/23 16:52 Temperature 98.2 F 02/06/23 16:52 Pulse Rate 86 02/06/23 16:52 Respiratory Rate 18 02/06/23 16:52 Blood Pressure 134/101 H 02/06/23 16:52 Pulse Oximetry 99 02/06/23 16:52 Oxygen Delivery Method Room Air 02/06/23 16:52 Medical Decision Making MDM Narrative Medical decision making narrative: This patient reports left shoulder pain is been worsening over the past weeks or months. There is no specific injury event but she does do repetitive activities at work. An x-ray is ordered and returns with no sign of acute pathology. I did offer an intra-articular therapeutic injection which the patient agreed to. She received the injection of 40 mg of Kenalog mixed with 2% lidocaine. To a total of 10 mL was injected into the left glenohumeral intra-articular space. The patient states that this brought relief to her symptoms. I encouraged her to increase activity as tolerated. She is instructed to follow-up with orthopedic clinic if symptoms are not improving or worsening. She did received prescription for Toradol. Discharge Plan Discharge Clinical Impression: Left shoulder pain Patient Disposition: Home, Self-Care Condition: Improved Additional Instructions: Increased activity as tolerated. Take medication as needed and directed. Follow up with orthopedic clinic if not improving or worsening. Prescriptions: No Action azithromycin 250 mg tablet 250 mg PO DAILY 4 Days Qty: 4 0RF Rx Instructions: start on day 2 of therapy naltrexone 50 mg tablet Patient Comments: Take 1 tablet by mouth once a day amlodipine 5 mg tablet citalopram 20 mg tablet Patient Comments: TAKE ONE TABLET BY MOUTH EVERY MORNING famotidine 20 mg tablet Patient Comments: TAKE 1 TABLET (20 MG) BY MOUTH TWO TIMES DAILY. gemfibrozil 600 mg tablet Patient Comments: TAKE ONE TABLET BY MOUTH TWICE A DAY simvastatin 20 mg tablet Patient Comments: TAKE ONE TABLET BY MOUTH ONE TIME DAILY metformin 1,000 mg tablet Patient Comments: TAKE ONE TABLET BY MOUTH TWICE A DAY lisinopril 10 mg tablet Patient Comments: TAKE ONE TABLET BY MOUTH DAILY ergocalciferol (vitamin D2) 1,250 mcg (50,000 unit) capsule Patient Comments: TAKE ONE CAPSULE BY MOUTH ONCE WEEKLY verapamil 240 mg capsule,ext rel. pellets 24 hr PO Patient Comments: TAKE ONE CAPSULE BY MOUTH EVERY MORNING bupropion HCl [Wellbutrin XL] 150 mg tablet extended release 24 hr PO Patient Comments: Take 1 tablet by mouth once a day - add to 300mg dose for 450mg total Jardiance 25 mg tablet Patient Comments: TAKE ONE TABLET BY MOUTH ONE TIME DAILY Follow Up/Referrals: Shena Aldana MD [Primary Care Provider] - Stand Alone Forms: [employer] Info Instructions
--- NOTE | 2023-02-06 17:08 | CRLHL7_ITS ---
For Patients: As a result of the Century Cures Act, medical imaging exams and procedure reports are released immediately into your electronic medical record. You may view this report before your referring provider. If you have questions, please contact your health care provider. Indication: Shoulder pain. Technique: Right shoulder 3 views. Comparison: None. Findings: No acute displaced fracture or malalignment. Nodular calcifications within the soft tissues just posterior to the humeral head on the transscapular Y-view, which may reflect calcific tendinosis. No soft tissue swelling. Joint spaces are maintained. Bony mineralization is age appropriate. Impression: No acute displaced fracture. Nodular calcifications within the soft tissues just posterior to the humeral head on the transscapular Y-view, which may reflect calcific tendinosis. Dictated by Chidi Caldwell MD @ 02/06/2023 7:13:43 PM (Electronically Signed)
[2023-02-06] MEDS: TRIAMCINOLONE 40 MG/ML INJ INTRA-ARTI (17:33)
--- NOTE | 2023-02-07 16:28 | ED.NURSE ---
did call to have rx transmitted to [facility] as this did not happen yesterday. chart accessed for this reason.
== END 2023-02-06 18:15 | disposition home or self-care (01) ==
PROVIDERS: Emergency Provider Emergency Medicine Emergency Medical Services; PCP Family Medicine
DX: M25.512 Pain in left shoulder (principal)
CPT/HCPCS: 20610; 73030; 99284; J3301

== ENCOUNTER 2023-06-01 05:04 | Emergency (ER) | payer BC, SELFPAY ==
[2023-06-01 05:27] VITALS: BP 138/91; PULSE 89; RESP 20; TEMP 36; O2SAT 99
--- NOTE | 2023-06-01 05:58 | ED_ITS ---
HPI - General Adult General Chief complaint: Nausea/Vomiting Stated complaint: Nausea, low blood sugar Time Seen by Provider: 06/01/23 05:09 Source: patient Mode of arrival: ambulatory History of Present Illness HPI narrative: 37-year-old female with a history of insulin-dependent type 2 diabetes presents to the emergency department with nausea and vomiting, concern she could have low blood sugar. Her continuous glucose monitor is at 79 and her fingerstick blood sugar here is 125. She states that she has had some nausea the last couple of days and had vomiting this morning she has had some intermittent loose stools as well. She has reduced her Lantus from 30-20 units and still had a low blood sugar of 50 to tonight. She was able to eat something and brought her sugar up right away. She is still drinking plenty of fluids, urinating at least 4 times daily. There is no blood in her stools or vomit. There is no abdominal pain. She also takes metformin and Jardiance to control her blood sugar but states there have not been any recent dose adjustments. No injury or trauma. She has not tried other medications or treatments to help with her nausea. Denies alcohol. Requests a work note. Past medical history notable for type 2 diabetes, depression, hyperlipidemia, hypertension. Medications reviewed, accurate as reported. Allergies, multiple reviewed. Social history reviewed. ROS is notable for the GI symptoms only, otherwise denies times 12 systems. Related Data Home Medications Medication Instructions Recorded Confirmed amlodipine 5 mg tablet mg 01/10/23 bupropion HCl 150 mg 24 hr tablet, mg PO 01/10/23 extended release (Wellbutrin XL) citalopram 20 mg tablet mg 01/10/23 empagliflozin 25 mg tablet mg 01/10/23 (Jardiance) ergocalciferol (vitamin D2) 1,250 01/10/23 mcg (50,000 unit) capsule famotidine 20 mg tablet mg 01/10/23 gemfibrozil 600 mg tablet mg 01/10/23 lisinopril 10 mg tablet mg 01/10/23 metformin 1,000 mg tablet mg 01/10/23 naltrexone 50 mg tablet mg 01/10/23 simvastatin 20 mg tablet mg 01/10/23 verapamil 240 mg 24 hr mg PO 01/10/23 capsule,extended release Previous Rx's Medication Instructions Recorded azithromycin 250 mg tablet 250 mg PO DAILY 4 days #4 tabs 12/05/22 ketorolac 10 mg tablet 10 mg PO Q8H 5 days #15 tabs 02/06/23 Allergies Allergy/AdvReac Type Severity Reaction Status Date / Time sumatriptan [From Imitrex] Allergy Verified 10/05/22 12:07 topiramate [From Topamax] Allergy Verified 10/05/22 12:07 cefaclor [From Ceclor] AdvReac Unverified 10/05/22 12:07 ibuprofen AdvReac Verified 10/05/22 12:07 some insulins Allergy Uncoded 10/05/22 12:07 [facility] Medical History GERD (gastroesophageal reflux disease) ?K21.9 - Gastro-esophageal reflux disease without esophagitis (ICD-10) Anxiety ?F41.9 - Anxiety disorder, unspecified (ICD-10) Hypertension ?I10 - Essential (primary) hypertension (ICD-10) Diabetes ?E11.9 - Type 2 diabetes mellitus without complications (ICD-10) Cardiomyopathy ?I42.9 - Cardiomyopathy, unspecified (ICD-10) Surgical History Status post cholecystectomy ?Z90.49 - Acquired absence of other specified parts of digestive tract (ICD- 10) Social History Smoking Status: Current every day smoker What tobacco products do you use: cigarettes Do you use any of these nicotine containing products: Vaping Products Second hand tobacco smoke exposure: No How often do you have a drink containing alcohol: never AUDIT-C Alcohol total score: 0 Non-prescribed substance use: former substance user 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 Well hydrated. HENMT: Common normals: normocephalic and head/scalp atraumatic Head and scalp: normocephalic and atraumatic Mouth: oral and palatal mucosa normal Throat: posterior oropharynx normal Eye: General eye: normal appearance of both eyes Neck & C-Spine: Common normals: no lymphadenopathy Resp: Common normals: normal respiratory effort, no use of accessory muscles and clear to auscultation bilaterally Effort & inspection: able to speak in complete sentences Auscultation: clear to auscultation bilaterally Cardio: Common normals: regular rate, regular rhythm, S1 normal heart sound, S2 normal heart sound and no murmurs Rate: regular rate Rhythm: regular rhythm Heart sounds: S1 normal and S2 normal GI: Common normals: Normal to inspection, nondistended, normoactive bowel sounds present, soft to palpation, non-tender, no hepatosplenomegaly and no masses Palpation: soft and no hepatosplenomegaly Neuro: Speech: speech normal Gait (neuro): normal gait Motor exam: no movement abnormalities noted Psych: Common normals: speech normal Activity/motor behavior: appropriate eye contact Speech: normal speech Insight: insight good Judgement: judgment good Skin: Common normals: no rashes or lesions noted General skin exam: no rashes or lesions noted Course Course Hospital Course: Differential diagnosis including gastroenteritis, gastric reflux disease, pancreatitis, abdominal trauma, colitis, medication side effects, diabetic ketoacidosis, hypoglycemia, viral illness, among others. No abdominal pain, exam is fully reassuring. No fever. Able to take oral nutrition without complication. No hypoglycemia seen in ED. I recommended a trial of oral Zofran, watchful waiting and follow up with primary care if she continues to have symptoms which could certainly be related to her medications. Counseled to reduce her Lantus to 10 units for the next couple of days and continue watching her blood sugars closely through her continues glucose monitor. Reminded to have a snack if her blood sugar is below 150 at night. She verbalizes understanding and agreement. Work note given for today, return to to full typical duty tomorrow. Prescription for Zofran given. Alarm symptoms reviewed that would warrant ED presentation. All questions answered. Vital Signs Vital signs: Initial Vital Signs Temperature 96.8 F L 06/01/23 05:27 Temperature Source Temporal Artery Scan 06/01/23 05:27 Pulse Rate 89 06/01/23 05:27 Respiratory Rate 20 06/01/23 05:27 Blood Pressure 138/91 H 06/01/23 05:27 Blood Pressure Mean 106 H 06/01/23 05:27 Blood Pressure Position Semi-Fowlers 06/01/23 05:27 Pulse Oximetry 99 06/01/23 05:27 Oxygen Delivery Method Room Air 06/01/23 05:27 Vital Signs Temperature 96.8 F L 06/01/23 05:27 Pulse Rate 89 06/01/23 05:27 Respiratory Rate 20 06/01/23 05:27 Blood Pressure 138/91 H 06/01/23 05:27 Pulse Oximetry 99 06/01/23 05:27 Oxygen Delivery Method Room Air 06/01/23 05:27 Temperature 96.8 F L 06/01/23 05:27 Pulse Rate 89 06/01/23 05:27 Respiratory Rate 20 06/01/23 05:27 Blood Pressure 138/91 H 06/01/23 05:27 Pulse Oximetry 99 06/01/23 05:27 Oxygen Delivery Method Room Air 06/01/23 05:27 Discharge Plan Discharge Clinical Impression: Gastroenteritis Patient Disposition: Home, Self-Care Condition: Stable Instructions: Acute Nausea and Vomiting (DC) Additional Instructions: As we discussed, your blood sugar is doing just fine. It is reasonable to decrease your Lantus further while you are not feeling well. I would actually recommend that you reduce this to 10 units just for the next couple of days until your symptoms improve. Once you are eating at your typical her [place], return to your typical 30 units. It is okay to continue your Jardiance and metformin in the meantime. Make sure you are checking her blood sugar before you go to sleep. If it is under 150, you need to make sure that you have a snack before bed. Continue pushing fluids. Your appetite will improve as this viral illness resolves. There are no signs of abdominal pain or fever that make me think there is a significant intra-abdominal infection and your exam is very reassuring. Your given some oral Zofran to help with the nausea. I have given you an additional supply of this to use as needed. If you continue to experience nausea and diarrhea, it could be side effects from your diabetes medication in you should discuss this further with her primary care provider. I have given you a work note for today, you may return to typical duty on Friday. If you start vomiting blood, have severe weakness, are unable to hold down fluids for over 24 hours or have significant worsening, come back to the emergency department. Activity Level: Activity as Tolerated Discharge Diet: Regular Prescriptions: No Action azithromycin 250 mg tablet 250 mg PO DAILY 4 Days Qty: 4 0RF Rx Instructions: start on day 2 of therapy naltrexone 50 mg tablet Patient Comments: Take 1 tablet by mouth once a day amlodipine 5 mg tablet citalopram 20 mg tablet Patient Comments: TAKE ONE TABLET BY MOUTH EVERY MORNING famotidine 20 mg tablet Patient Comments: TAKE 1 TABLET (20 MG) BY MOUTH TWO TIMES DAILY. gemfibrozil 600 mg tablet Patient Comments: TAKE ONE TABLET BY MOUTH TWICE A DAY simvastatin 20 mg tablet Patient Comments: TAKE ONE TABLET BY MOUTH ONE TIME DAILY metformin 1,000 mg tablet Patient Comments: TAKE ONE TABLET BY MOUTH TWICE A DAY lisinopril 10 mg tablet Patient Comments: TAKE ONE TABLET BY MOUTH DAILY ergocalciferol (vitamin D2) 1,250 mcg (50,000 unit) capsule Patient Comments: TAKE ONE CAPSULE BY MOUTH ONCE WEEKLY verapamil 240 mg capsule,ext rel. pellets 24 hr PO Patient Comments: TAKE ONE CAPSULE BY MOUTH EVERY MORNING bupropion HCl [Wellbutrin XL] 150 mg tablet extended release 24 hr PO Patient Comments: Take 1 tablet by mouth once a day - add to 300mg dose for 450mg total Jardiance 25 mg tablet Patient Comments: TAKE ONE TABLET BY MOUTH ONE TIME DAILY ketorolac 10 mg tablet 10 mg PO Q8H 5 Days Qty: 15 0RF Follow Up/Referrals: Shena Aldana MD [Primary Care Provider] - Stand Alone Forms: [employer] Info Instructions
[2023-06-01] MEDS: ONDANSETRON ODT 4 MG TAB PO (06:18)
[2023-06-18 12:59] LABS: Glucose, Point-of-Care* 125 mg/dl (60-115)
== END 2023-06-01 06:20 | disposition home or self-care (01) ==
LOC: ED 06:02
PROVIDERS: Emergency Provider Family Medicine; PCP Family Medicine
DX: K52.9 Noninfective gastroenteritis and colitis, unspecified (principal)
CPT/HCPCS: 82947; 82962; 99283; A9270

== ENCOUNTER 2023-11-18 22:43 | Emergency (ER) | payer BC, SELFPAY ==
[2023-11-18 22:48] VITALS: BP 167/98; PULSE 103; RESP 18; TEMP 36.8; O2SAT 100; BMI 39.2
[2023-11-18] MEDS: cephALEXin 500 MG CAPSULE PO (23:45)
[2023-11-18 23:51] VITALS: BP 150/72; PULSE 98; RESP 18; O2SAT 99
--- NOTE | 2023-11-19 00:13 | ED.GENADULT ---
HPI - General Adult General Date Seen: 11/19/23 Chief complaint: Extremity Pain/Injury, Lower Stated complaint: Toe infection Time Seen by Provider: 11/18/23 23:17 History of Present Illness HPI narrative: This is a 38-year-old female with a past medical history including hyper lead to be a male, hypertension, type 2 diabetes, anxiety/depression, GERD, and a recent history of drug use. She presents to the ER today with concern about an infection around her left big toenail and toe. She does have a history of insulin-dependent diabetes , previously on Lantus, Jardiance, and metformin. She has been off her meds recently. She apparently stopped taking them during a drug binge. She has been through treatment from that and is now sober but has not yet restarted her meds. She does not check her sugars very often. She apparently called her doctor's office to make an appointment to see her doctor and restart on her meds, and that is scheduled for next Friday. When we discussed refilling her prescriptions for diabetes meds here, she actually says she has a supply of metformin and Lantus at home. She also has all of her diabetic testing supplies including strips and lancets. I encouraged her to restart her meds even before she sees her doctor! Unclear why she has not restarted them spontaneously on her own. She was trimming her toenails a couple of days ago and notice that her left big toenail was very short. There was a rim of redness around the medial proximal side of the toenail plate. 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 She called the nurse triage line willie and was told to come to the ER because of possible infection. She notes a small tender all of pinkness on the dorsum of her left midfoot as well. No other swollen or painful or red toes. She does note that for the past few months she has had tingling affecting all of her toes. No new tingling or numbness. No fever or chills. No body aches. Related Data Home Medications Medication Instructions Recorded Confirmed amlodipine 5 mg tablet mg 01/10/23 bupropion HCl 150 mg 24 hr tablet, mg PO 01/10/23 extended release (Wellbutrin XL) citalopram 20 mg tablet mg 01/10/23 empagliflozin 25 mg tablet mg 01/10/23 (Jardiance) ergocalciferol (vitamin D2) 1,250 01/10/23 mcg (50,000 unit) capsule famotidine 20 mg tablet mg 01/10/23 gemfibrozil 600 mg tablet mg 01/10/23 lisinopril 10 mg tablet mg 01/10/23 metformin 1,000 mg tablet mg 01/10/23 naltrexone 50 mg tablet mg 01/10/23 simvastatin 20 mg tablet mg 01/10/23 verapamil 240 mg 24 hr mg PO 01/10/23 capsule,extended release Previous Rx's Medication Instructions Recorded azithromycin 250 mg tablet 250 mg PO DAILY 4 days #4 tabs 12/05/22 ketorolac 10 mg tablet 10 mg PO Q8H 5 days #15 tabs 02/06/23 cephalexin 500 mg capsule 500 mg PO TID #30 caps 11/18/23 Allergies Allergy/AdvReac Type Severity Reaction Status Date / Time sumatriptan [From Imitrex] Allergy Verified 11/18/23 22:54 topiramate [From Topamax] Allergy Verified 11/18/23 22:54 cefaclor [From Ceclor] AdvReac Verified 11/18/23 22:54 ibuprofen AdvReac Verified 11/18/23 22:54 some insulins Allergy Uncoded 10/05/22 12:07 PFSH PFS Medical History GERD (gastroesophageal reflux disease) ?K21.9 - Gastro-esophageal reflux disease without esophagitis (ICD-10) Anxiety ?F41.9 - Anxiety disorder, unspecified (ICD-10) Hypertension ?I10 - Essential (primary) hypertension (ICD-10) Diabetes ?E11.9 - Type 2 diabetes mellitus without complications (ICD-10) Cardiomyopathy ?I42.9 - Cardiomyopathy, unspecified (ICD-10) Surgical History Status post cholecystectomy ?Z90.49 - Acquired absence of other specified parts of digestive tract (ICD-10) Social History Smoking Status: Current every day smoker What tobacco products do you use: cigarettes Do you use any of these nicotine containing products: Vaping Products Second hand tobacco smoke exposure: No How often do you have a drink containing alcohol: never AUDIT-C Alcohol total score: 0 Non-prescribed substance use: former substance user 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 Alert. Conversant. Non toxic. HENT: Head: Atraumatic. Nose: Nose normal. Mouth/Throat: Oral mucosa is clear and moist. no trismus. Pharynx normal. Tonsils symmetric. No tonsillar enlargement, erythema, or exudate. Eyes: Conjunctivae normal. EOM normal. Pupils equal, round, and reactive to light. No scleral icterus. Neck: Normal range of motion. Neck supple. No tracheal deviation present. Cardiovascular: Normal rate, regular rhythm. No gallop. No friction rub. No murmur heard. Symmetric radial artery pulses Pulmonary/Chest: Effort normal. No stridor. No respiratory distress. No wheezes. No rales. No rhonchi . No tenderness. Abdominal: Soft. Bowel sounds normal. No distension. No mass. No tenderness. No rebound. No guarding. Musculoskeletal: RUE: Normal range of motion. No tenderness. No deformity LUE: Normal range of motion. No tenderness. No deformity RLE: Normal range of motion. No edema. No tenderness. No deformity LLE: Normal range of motion in her hip, knee, ankle, midfoot, and toes. There is a small rim of erythema affecting the medial/proximal 1/3 of the skin around the left foot, big toe toenail. This would be consistent with a small area of paronychia. There is no palpable fluctuance. No crepitus. No purulent drainage. There is a very subtle tender role of erythema extending proximally from that big toe onto the midfoot. No other erythema or toes. No skin breakdown in the web spaces. No evidence for foot ulcers. No edema. No tenderness. No deformity Lymph: Subtle tender all of erythema extending proximally from the toe but no other ascending lymphangitis. Neurological: Alert and oriented to person, place, and time. Normal strength. CN II-VII intact. Subjective tingling in all toes, but no other focal sensory deficit. GCS eye subscore is 4. GCS verbal subscore is 5. GCS motor subscore is 6. Normal coordination Skin: Skin is warm and dry. No rash noted. No pallor. Normal capillary refill. Psychiatric: Normal mood. Normal affect. Const: Vital Signs, click to edit/add: Vital Signs - 24 hr 11/18/23 22:48 Temperature 98.3 F Pulse Rate [Pulse Oximeter] 103 H Respiratory Rate 18 Blood Pressure [Ri ght Upper Arm] 167/98 H Pulse Oximetry 100 Oxygen Delivery Me thod Room Air Course Vital Signs Vital signs: Initial Vital Signs Temperature 98.3 F 11/18/23 22:48 Temperature Source Temporal Artery Scan 11/18/23 22:48 Pulse Rate 103 H 11/18/23 22:48 Respiratory Rate 18 11/18/23 22:48 Blood Pressure 167/98 H 11/18/23 22:48 Blood Pressure Mean 121 H 11/18/23 22:48 Blood Pressure Position Sitting 11/18/23 22:48 Pulse Oximetry 100 11/18/23 22:48 Oxygen Delivery Method Room Air 11/18/23 22:48 Vital Signs Temperature 98.3 F 11/18/23 22:48 Pulse Rate 103 H 11/18/23 22:48 Respiratory Rate 18 11/18/23 22:48 Blood Pressure 167/98 H 11/18/23 22:48 Pulse Oximetry 100 11/18/23 22:48 Oxygen Delivery Method Room Air 11/18/23 22:48 Temperature 98.3 F 11/18/23 22:48 Pulse Rate 103 H 11/18/23 22:48 Respiratory Rate 18 11/18/23 22:48 Blood Pressure 167/98 H 11/18/23 22:48 Pulse Oximetry 100 11/18/23 22:48 Oxygen Delivery Method Room Air 11/18/23 22:48 Medications Administered Medications: Generic Name Dose Route Start Last Admin Trade Name Freq PRN Reason Stop Dose Admin Cephalexin HCl 500 mg 11/18/23 23:33 11/18/23 23:45 Cephalexin 500 Mg Capsule PO 11/18/23 23:34 500 mg ONCE ONE Administration Medical Decision Making MDM Narrative Medical decision making narrative: 38-year-old female with a complex past history presenting to the ER today ache with concern primarily for redness and swelling of her left great toe. She does have evidence for a subtle infection there that probably is a early or very mild paronychia. At this point there is no purulent fluid palpable. At this point only she would benefit from I and D or from toenail removal. However I do think she needs start on antibiotics. There is a very subtle rim of erythema around the medial/proximal toe but not circumferentially around the toe. There is also a very subtle small area of lymphangitis on the dorsum of the toe/midfoot. At this point although she is diabetic I do not think she needs to be admitted for IV antibiotics. Will start her on cephalexin. She does tell me that she has a family history of allergy to several core, but has never personally taken it. Therefore we decided to put her on cephalexin. She received her 1st dose here in the ER and has no signs of reaction. Prescription for additional cephalexin sent to her pharmacy at [place]. She has a restricted recipient and therefore cannot use [facility]. Precautions for return to the ER need for follow-up reviewed. Discussed the potential risk of worsening infection. I had her take a picture of her foot showing the area of redness with that she can monitor carefully for any signs of extension. Blood sugar tonight is 278. She does have uncontrolled hyperglycemia. She does have a previous history of type 2 diabetes but has been off her meds lately apparently related to a drug binge and treatment. She has adequate amounts of metformin, Lantus, and all of her testing supplies at home. She has been waiting to restart her meds until she sees her primary care provider on Friday. My advice to her would be restart her meds today because controlling her blood sugar would help improve her immune systems ability to a fight infection. She is not otherwise systemically ill or febrile. At this point and only she needs to be admitted for IV antibiotics. Need for follow-up and precautions for return to the ER reviewed. Discharge Plan Discharge Clinical Impression: Paronychia, Acute hyperglycemia Patient Disposition: Home, Self-Care Condition: Stable Instructions: Paronychia (ED), Diabetic Hyperglycemia (ED) Additional Instructions: Please monitor the area of redness and swelling on your left big toe and left foot. If it has increasing redness or swelling, or if he develops high fever, please see your doctor or come back to the ER right away. Use the antibiotics (cephalexin) 3 times daily for 10 days to help treat the infection. Please restart on your diabetes medications, at least her metformin, and follow-up with your regular doctor by next Friday for a recheck. If you have diabetic testing supplies, please check your blood sugar at least twice per day and keep a record of your blood sugar measurements for your doctor. Prescriptions: New cephalexin 500 mg capsule 500 mg PO TID Qty: 30 0RF No Action azithromycin 250 mg tablet 250 mg PO DAILY 4 Days Qty: 4 0RF Rx Instructions: start on day 2 of therapy naltrexone 50 mg tablet Patient Comments: Take 1 tablet by mouth once a day amlodipine 5 mg tablet citalopram 20 mg tablet Patient Comments: TAKE ONE TABLET BY MOUTH EVERY MORNING famotidine 20 mg tablet Patient Comments: TAKE 1 TABLET (20 MG) BY MOUTH TWO TIMES DAILY. gemfibrozil 600 mg tablet Patient Comments: TAKE ONE TABLET BY MOUTH TWICE A DAY simvastatin 20 mg tablet Patient Comments: TAKE ONE TABLET BY MOUTH ONE TIME DAILY metformin 1,000 mg tablet Patient Comments: TAKE ONE TABLET BY MOUTH TWICE A DAY lisinopril 10 mg tablet Patient Comments: TAKE ONE TABLET BY MOUTH DAILY ergocalciferol (vitamin D2) 1,250 mcg (50,000 unit) capsule Patient Comments: TAKE ONE CAPSULE BY MOUTH ONCE WEEKLY verapamil 240 mg capsule,ext rel. pellets 24 hr PO Patient Comments: TAKE ONE CAPSULE BY MOUTH EVERY MORNING bupropion HCl [Wellbutrin XL] 150 mg tablet extended release 24 hr PO Patient Comments: Take 1 tablet by mouth once a day - add to 300mg dose for 450mg total Jardiance 25 mg tablet Patient Comments: TAKE ONE TABLET BY MOUTH ONE TIME DAILY ketorolac 10 mg tablet 10 mg PO Q8H 5 Days Qty: 15 0RF Follow Up/Referrals: Shena Aldana MD [Primary Care Provider] - Stand Alone Forms: [employer] Info Instructions
[2023-11-27 13:56] LABS: Glucose, Point-of-Care* 278 mg/dl (60-115)
== END 2023-11-19 00:20 | disposition home or self-care (01) ==
PROVIDERS: Emergency Provider Emergency Medicine; PCP Family Medicine
DX: L03.032 Cellulitis of left toe (principal); E11.65 Type 2 diabetes mellitus with hyperglycemia
CPT/HCPCS: 82947; 99283; 99284; A9270

== ENCOUNTER 2024-07-16 07:46 | Emergency (ER) | payer BC, SELFPAY ==
[2024-07-16 08:06] VITALS: BP 135/80; PULSE 85; RESP 16; TEMP 36.2; O2SAT 100; BMI 37.1
--- NOTE | 2024-07-16 08:53 | ED.GENADULT ---
HPI - General Adult General Date Seen: 07/16/24 Chief complaint: Urogenital Problems, Female Stated complaint: Vaginal growth, recurring yeast inf, BV Time Seen by Provider: 07/16/24 08:47 History of Present Illness HPI narrative: This is a pleasant 38-year-old female accompanied to the Emergency Department today by her . She is concerned because she and her noticed a new fleshy growth on the opening of her vagina last night. She has had abnormal Pap smears since she was a young woman and in May she had a LEEP procedure performed by a [facility] director business systems in [facility]. She recovered well from a LEEP procedure. She noted some vaginal irritation and discharge about 3 weeks ago and was diagnosed with bacterial vaginosis and yeast infection through her primary care office at [facility]. She had been treated for those infections with oral pills (fluconazole) and an intravaginal cream (she does not know for sure, probably metronidazole). She had recurrent symptoms lately so she did a vaginal self swab through her primary care office yesterday that was again positive for yeast and BV. She was prescribed a longer course of fluconazole pills and another course of vaginal cream by her primary care provider yesterday, but has not had time to start that yet. She has not had sex in a couple of weeks. She had her had sex last night and apparently they noticed a new lump on the outside of her vagina. Is not painful. It is not irritated. It is not bleeding. No discharge. No other lumps. She has no history of lumps or growths or genital warts in the past. 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 Aldana at the [facility]. She has phone notes from 2 days ago yesterday. She was having vaginal discharge and did a vaginal self swab. It was positive for Charlette, Charlette glabrata, as well as bacterial vaginosis. Negative for Trichomonas. Related Data Home Medications ?Medication ?Instructions ?Recorded ?Confirmed amlodipine 5 mg tablet mg 01/10/23 bupropion HCl 150 mg 24 hr tablet, 150 mg PO 01/10/23 extended release (Wellbutrin XL) empagliflozin 25 mg tablet 25 mg 01/10/23 (Jardiance) ergocalciferol (vitamin D2) 1,250 1,250 mcg 01/10/23 mcg (50,000 unit) capsule lisinopril 10 mg tablet 10 mg 01/10/23 metformin 1,000 mg tablet 1,000 mg 01/10/23 verapamil 240 mg 24 hr mg PO 01/10/23 capsule,extended release atorvastatin 10 mg tablet 10 mg PO QPM 07/16/24 07/16/24 escitalopram oxalate 10 mg tablet mg PO 07/16/24 insulin glargine 100 unit/mL (3 60 unit subcut QPM 07/16/24 07/16/24 mL) subcutaneous pen (Lantus Solostar U-100 Insulin) Previous Rx's ?Medication ?Instructions ?Recorded ketorolac 10 mg tablet 10 mg PO Q8H 5 days #15 tabs 02/06/23 Allergies Allergy/AdvReac Type Severity Reaction Status Date / Time sumatriptan [From Imitrex] Allergy Verified 11/18/23 22:54 topiramate [From Topamax] Allergy Verified 11/18/23 22:54 cefaclor [From Ceclor] AdvReac Verified 11/18/23 22:54 ibuprofen AdvReac Verified 11/18/23 22:54 some insulins Allergy Uncoded 10/05/22 12:07 [facility] Medical History GERD (gastroesophageal reflux disease) ?K21.9 - Gastro-esophageal reflux disease without esophagitis (ICD-10) Anxiety ?F41.9 - Anxiety disorder, unspecified (ICD-10) Hypertension ?I10 - Essential (primary) hypertension (ICD-10) Diabetes ?E11.9 - Type 2 diabetes mellitus without complications (ICD-10) Cardiomyopathy ?I42.9 - Cardiomyopathy, unspecified (ICD-10) Surgical History Status post cholecystectomy ?Z90.49 - Acquired absence of other specified parts of digestive tract (ICD-10) Social History Smoking Status: Current every day smoker What tobacco products do you use: cigarettes Do you use any of these nicotine containing products: Vaping Products Second hand tobacco smoke exposure: No How often do you have a drink containing alcohol: never How often do you have six or more drinks on one occasion: Never AUDIT-C Alcohol total score: 0 Non-prescribed substance use: former substance user 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 Polite. Non-toxic appearing. HENT: Head: Atraumatic. No signs of injury. Nose: No nasal discharge. Mouth/Throat: Mucous membranes are moist. No perioral ulcers or signs of the oral herpes. Airway patent. Eyes: Conjunctivae normal and EOM are normal. Pupils are equal, round, and reactive to light. Right eye exhibits no discharge. Left eye exhibits no discharge. No icterus. Neck: Normal range of motion. Neck supple. No adenopathy. No stridor. Cardiovascular: Normal rate and regular rhythm. Brisk capillary refill Pulmonary/Chest: Effort normal. No stridor. No respiratory distress. No wheezes.No rhonchi. No rales. No retractions. Abdominal: Soft. No distension. No mass. There is no tenderness. There is no rebound and no guarding. Pelvic: Performed with female undertaker assistant. Patient placed supine with her feet in the stirrups. We were examining the external portion of her vagina and vulva. I do not see any perirectal or gluteal cleft abscesses or abnormalities. There is a irregularly-shaped 1 x 1 cm fleshy skin colored tag of material attached to the lower (posterior) and of the right labia minora. There is a smaller area of slightly raised skin to shoe on the left lower labia minora that does not raise of from the skin very far and does not create a tach. These do not appear to be consistent with infected hair follicles or abscesses. These are not pr thalamic gland cyst. Concern is for either condyloma acuminata or other evolving vulvar skin problems such as atrophy or malignancy. Musculoskeletal: Normal range of motion. No edema. No tenderness. No deformity. Neurological: Alert. Normal strength. No cranial nerve deficit or sensory deficit. Coordination normal. GCS eye subscore is 4. GCS verbal subscore is 5. GCS motor subscore is 6. Skin: Skin is warm. No rash noted. Const: Vital Signs, click to edit/add: Vital Signs - 24 hr 07/16/24 08:06 Temperature 97.2 F L Pulse Rate [Pulse Oximeter] 85 Respiratory Rate 16 Blood Pressure [Ri ght Upper Arm] 135/80 Pulse Oximetry 100 Oxygen Delivery Me thod Room Air Course Vital Signs Vital signs: Initial Vital Signs Temperature 97.2 F L 07/16/24 08:06 Temperature Source Temporal Artery Scan 07/16/24 08:06 Pulse Rate 85 07/16/24 08:06 Respiratory Rate 16 07/16/24 08:06 Blood Pressure 135/80 07/16/24 08:06 Blood Pressure Mean 98 07/16/24 08:06 Pulse Oximetry 100 07/16/24 08:06 Oxygen Delivery Method Room Air 07/16/24 08:06 Vital Signs Temperature 97.2 F L 07/16/24 08:06 Pulse Rate 85 07/16/24 08:06 Respiratory Rate 16 07/16/24 08:06 Blood Pressure 135/80 07/16/24 08:06 Pulse Oximetry 100 07/16/24 08:06 Oxygen Delivery Method Room Air 07/16/24 08:06 Temperature 97.2 F L 07/16/24 08:06 Pulse Rate 85 07/16/24 08:06 Respiratory Rate 16 07/16/24 08:06 Blood Pressure 135/80 07/16/24 08:06 Pulse Oximetry 100 07/16/24 08:06 Oxygen Delivery Method Room Air 07/16/24 08:06 Medical Decision Making MDM Narrative Medical decision making narrative: 38-year-old female presenting to the ER today with her family with concern for a new lump noted on the outside of her vagina. Patient and are not sure how long it has been there but it sounds like they discovered at last night and she is very worried about it. She has a known history of abnormal Pap smears with previous LEEP about 2 months ago. No known history of cervical cancer. No known history of condyloma. Differential here would include vulvar abscess, ingrown hair follicle, perineal infection or gluteal abscess like pilonidal cyst, Matthew's. Differential would also include condyloma, Bartholin's gland abscess, vaginal trauma or contusion, among others Clinical exam is suspicious for probable condyloma acuminata. However advised close outpatient follow-up with her director business systems for repeat exam in consideration of other pathology such as vaginal atrophy or vulvar malignancy. Incidentally she is also having trouble with yeast infection and BV. She has already had an outpatient vaginal swab yesterday that is positive for BV and yeast. She is already on therapy through her primary care office. Therefore will not repeat vaginal swab here today. He they have no concern for other STDs or other recent STD exposures Discharge Plan Discharge Clinical Impression: Condyloma acuminata Patient Disposition: Home, Self-Care Condition: Stable Instructions: Genital Warts (ED) Additional Instructions: At this time we suspect the lump that you noticed on the outside of your vagina is probably a genital wart. General warts are caused by certain strains of human papilloma virus. Since this growth is new (in the past couple of weeks) it is very important for you to get a recheck with your director business systems within the next 1-2 weeks to have it rechecked. Other things we have to worry about here would be atrophy of your skin of your vulva or possibly vulvar cancer and you need to have this rechecked at your director business systems Please take the cream and other medication to treat your bacterial vaginosis and yeast infection, as her scribe by your doctors at [facility]. Prescriptions: No Action atorvastatin 10 mg tablet 10 mg PO QPM escitalopram oxalate 10 mg tablet PO insulin glargine [Lantus Solostar U-100 Insulin] 100 unit/mL (3 mL) insulin pen 60 unit subcut QPM amlodipine 5 mg tablet metformin 1,000 mg tablet 1,000 mg Patient Comments: TAKE ONE TABLET BY MOUTH TWICE A DAY lisinopril 10 mg tablet 10 mg Patient Comments: TAKE ONE TABLET BY MOUTH DAILY ergocalciferol (vitamin D2) 1,250 mcg (50,000 unit) capsule 1,250 mcg Patient Comments: TAKE ONE CAPSULE BY MOUTH ONCE WEEKLY verapamil 240 mg capsule,ext rel. pellets 24 hr PO Patient Comments: TAKE ONE CAPSULE BY MOUTH EVERY MORNING bupropion HCl [Wellbutrin XL] 150 mg tablet extended release 24 hr 150 mg PO Patient Comments: Take 1 tablet by mouth once a day - add to 300mg dose for 450mg total Jardiance 25 mg tablet 25 mg Patient Comments: TAKE ONE TABLET BY MOUTH ONE TIME DAILY ketorolac 10 mg tablet 10 mg PO Q8H 5 Days Qty: 15 0RF Follow Up/Referrals: Shena Aldana MD [Primary Care Provider] - Stand Alone Forms: [employer] Info Instructions
== END 2024-07-16 09:55 | disposition home or self-care (01) ==
LOC: ED 09:47
PROVIDERS: Emergency Provider Emergency Medicine; PCP Family Medicine
DX: A63.0 Anogenital (venereal) warts (principal)
CPT/HCPCS: 99282; 99283

== ENCOUNTER 2025-02-01 09:07 | Inpatient (IN) | payer MEDICAID, SELFPAY ==
[2025-02-01] VITALS (8 sets, daily range): BP systolic 111–160; BP diastolic 71–94; PULSE 90–96; RESP 16–20; TEMP 36.5–37.3; O2SAT 95–98; BMI 36.0; BMI 36.4
--- OUTSIDE RECORDS SUMMARY | 2025-02-01 09:10 | XMS_ITS | Clinical Summary ---
Author Organization [facility] Address [address] [place] [address] Care Team Providers Care Bell Ringer Name Role Phone Rabia Alarcon COMIC ILLUSTRATOR Unavailable Unavailable Shena Aldana MD Primary Care Provider Allergies Active Allergy Reactions Criticality Noted Date Comments Cefaclor Other - Describe In Comment Field 04/28/2006 Mother and brother had severe reactions, she has never taken it Duloxetine Agitation High 06/12/2017 Ibuprofen GI Upset 03/26/2007 Sumatriptan Other - Describe In Comment Field 07/17/2007 serotonin syndrome Insulin Asp Prt-Insulin Aspart Rash 10/16/2015 Insulin Aspart Rash Low 12/12/2015 Naltrexone GI Upset 01/20/2023 Severe gi upset, leg swelling Nsaids (Non-Steroidal Anti-Inflammatory Drug) GI Upset 12/13/2015 Other reaction(s): GI intolerance Paroxetine 09/18/2010 seizure Topiramate Intolerance-Can't Take 03/17/2009 shakiness Medications albuterol HFA (PRO-AIR; VENTOLIN; PROVENTIL) 90 mcg/actuation inhalerIndications :Mild intermittent asthma without complication (HC) Inhale 2 Puffs by mouth 4 times daily if needed for Shortness Of Breath or Wheezing. 8.5 g 11 11/24/19 24 Active buPROPion (WELLBUTRIN XL) 300 mg Extended-Release tabletIndications: Generalized anxiety disorder,Mild episode of recurrent major depressive disorder Take 1 Tablet (300 mg) by mouth once daily. 90 Tablet 3 11/24/19 Active continuous glucose monitor READER (FreeStyle Delvis 14 Day Tell)Indications :Diabetes mellitus without complication (HC) As directed. 1 Each 11/24/19 24 Active Jardiance 25 mg tabletIndications: Type 2 diabetes mellitus with hyperglycemia, without long-term current use of insulin (HC) Take 1 Tablet (25 mg) by mouth once daily. 90 Tablet 11/24/19 24 Active lisinopriL (PRINIVIL; ZESTRIL) 10 mg tabletIndications: HTN (hypertension) Take 1 Tablet (10 mg) by mouth once daily. 90 Tablet 3 11/24/19 24 Active metFORMIN (GLUCOPHAGE XR) 500 mg Extended-Release tabletIndications: Diabetes mellitus without complication (HC) Take 4 Tablets (2,000 mg) by mouth once daily. 360 Tablet 11/24/19 24 Active verapamiL (VERELAN) 240 mg Controlled-Release capsuleIndications :HTN (hypertension),Oth er migraine without status migrainosus, not intractable Take 1 Capsule (240 mg) by mouth every morning. 90 Capsule 11/24/19 24 Active atorvastatin (LIPITOR) 10 mg tabletIndications: Hyperlipidemia, unspecified hyperlipidemia type Take 1 Tablet (10 mg) by mouth at bedtime. 90 Tablet 11/24/19 Active FreeStyle Delvis 2 ReaderIndications: Diabetes mellitus without complication (HC) To be used to read blood sugars per negative stripper's directions. 1 Each 11/24/19 Active Insulin Versailles, Disposable, (UltiCare Pen Needle) 32 gauge x 5/32Indications:I nsulin dependent type 2 diabetes mellitus (HC) USE DIRECTED. ONCE WITH DINNER WITH LANTUS INJECTION 200 Each 12/03/19 Active nystatin (MYCOSTATIN) 100,000 unit/gram topical creamIndications:C andidal intertrigo Apply topically to affected area(s) two times daily. Apply thin layer to rash 30 g 02/25/20 Active Lantus Solostar U-100 Insulin 100 unit/mL (3 mL) penIndications:Typ e 2 diabetes mellitus with hyperglycemia, without long-term current use of insulin (HC) Inject 60 units subcutaneous before bedtime. Product desired: LANTUS SOLOSTAR 30 Each 3 06/28/20 24 Active continuous glucose monitor SENSOR KIT (FreeStyle Delvis 2 Sensor)Indications :Diabetes mellitus without complication (HC) To be used to read blood sugars per negative stripper's directions. 6 Each 3 06/10/20 24 Active escitalopram oxalate (LEXAPRO) 10 mg tabletIndications: Generalized anxiety disorder TAKE 1/2 TABLET BY MOUTH FOR 10 DAYS, THEREAFTER TAKE 1 TABLET DAILY 90 Tablet 08/07/20 24 Active ergocalciferol (,vitamin D2,) 50,000 unit capsuleIndications :Vitamin D deficiency TAKE 1 CAPSULE (50,000 UNITS) BY MOUTH ONCE WEEKLY. 12 Capsule 08/08/20 24 Active blood-glucose meterIndications:T ype 2 diabetes mellitus with other specified complication, with long-term current use of insulin (HC) Dispense meter covered by pts insurance. Test 3 times/day 1 Each 12/15/19 25 Active blood sugar diagnostic (Blood Glucose Test) stripIndications:T ype 2 diabetes mellitus with other specified complication, unspecified whether terminal superintendent insulin use (HC) Test 3 times per day. 100 Each 12/15/19 25 Active lancetsIndications :Type 2 diabetes mellitus with other specified complication, with long-term current use of insulin (HC) As directed. Test 3 times per day. 100 Each 12 12/15/19 25 Active Active Problems Problem Noted Date Diagnosed Date Cervical dysplasia 01/21/2024 Type 2 diabetes mellitus wit h other specified complication, unspecified whether terminal superintendent insulin use 11/24/2023 Adrenal nodule 01/20/2023 Type 2 diabetes mellitus wit h hyperglycemia, without long-term current use of insulin 07/11/2021 Controlled substance agreement signed 04/09/2019 Moderate episode of recurrent major depressive d isorder 02/07/2017 Generalized anxiety disorder 02/07/2017 Pre Consult 05/31/2014 Overview (06/02/2014): 28 y.o. Pre- consult NEXT VISIT ALERTS: PRIMARY DIAGNOSIS: Morbid obesity BMI=49.5, Type 2 DM (A1C = 6.6), Hyperlipidemia, hx seizures(hasn't had one in 4 years), bipolar, asthma, smoker (1ppd) REFERRING PHYSICIAN: Dr. Carolina Gage -Dr. Clemens = carpenter's assistant (last saw 05/27/14) MEDS: Januvia Pertinent/Abnormal LABS: Blood type: TSH 0.88 PLATELETS 508,000 Hgb A1C = 6.6 on 05-27-14 Hyperlipidemia TRIGLYCERIDES 258 (H) <150 mg/dL Final HDL CHOLESTEROL 33 (L) >40 mg/dL - 01/14/14 On 05-27-14: Triglycerides 262 Final HDL 34 GENETICS: DELIVERY PLANS: PLAN OF CARE: Hypertriglyceridemia 01/08/2013 Nicotine dependence 04/28/2012 ACP (advance care planning) 2011 Overview (2011): Patient has identified Health Care Agent(s): No Add Health Care Agents: No Patient has Advance Care Plan Documents (Health Care Directive, POLST): No, Production Pattern Maker to review with patient . Patient has identified Specific Treatment Preferences: No Specific limits to treatment preferences NOT identified: ASSUME FULL TREATMENT. Pilar Mendosa RN RN [facility] Production Pattern Maker [facility] [phone] Recurrent herpes labialis 08/06/2011 Unspecified episodic mood disorder 03/29/2011 Overview (08/04/2012): Probable MDD, monitoring Carpal tunnel syndrome 11/12/2010 Fatty liver 09/17/2010 Scheuermann's disease 04/16/2010 Hyperlipidemia LDL goal < 100 01/18/2010 DUB (dysfunctional uterine bleeding) 02/06/2009 PCO (polycystic ovaries) 02/06/2009 Atypical squamous cells toby ot exclude high grade squamous intraepithelial lesion on cytologic smear of cervix (ASC-H) 10/05/2007 Overview (12/26/2023): 09/2007 ASCH 11/2007 [place]: KAREN 1, Pap: NIL/HPV positive 12/2008 [place]: Suspicious for HPV. Pap: LSIL/HPV positive 08/2009 NIL 07/2010 NIL 08/2012 NIL 07/2013 ASCUS/HPV positive 08/2013 [place]: KAREN 1 03/2015 NIL/HPV negative 11/2016 NIL/HPV positive 11/2016 [place]: suggestive of KAREN 1 01/2018 ASCUS/HPV+ 06/2018 NIL 06/2018 [place]: suggestive of HPV 07/2021 NIL/HPV 16+, HPV 18 negative 12/2023 NIL/HPV 16+, HPV 18 negative Plan: Colposcopy Degeneration of lumbar or lumbosacral interverte bral disc 08/21/2007 Migraine, unspecified, witho ut mention of intractable migraine without mention of status migrainosus 07/04/2007 Borderline personality disorder 06/23/2007 Obesity, unspecified 03/21/2007 Unspecified asthma(493.90) 01/28/2007 Unspecified drug dependence, unspecified 007 Overview (01/02/2007): - tox screen. Broke narcotics agreement. Likely diverting, selling etc. NO MORE NARCOTICS Type II or unspecified type diabetes mellitus without mention of complication, not stated as uncontrolled 11/12/2006 Gastroparesis 07/28/2006 Endometriosis, site unspecified 07/28/2006 Resolved Problems Problem Noted Date Diagnosed Date Resolved Date Controlled substance agreement signed 11/21/2017 04/09/2019 Overview (04/13/2018): [facility] (11/19/17) 90 day reminder signed. Iris Fu [facility]...........04/13/2018 8:42 AM Medical Home 05/27/2011 01/29/2012 Medical Home 03/22/2011 05/20/2011 Medical Home 01/09/2011 05/20/2011 Overview (01/09/2011): Production Pattern Maker Dori Duval RN [phone] Carpal tunnel syndrome 09/29/201002/16 Other specified episodic mood disorder 08/15/2010 09/04/2011 Tobacco abuse 03/03/2010 10/12/2010 Spells 03/02/2010 03/04/2013 Anemia, unspecified 03/02/2010 12/14/19 11 Memory change 03/02/2010 03/04/2013 Diabetes 12/26/2008 03/02/2010 Lumbar facet arthropathy 10/19/2008 Smoker 07/29/2008 04/28/2012 Mild dysplasia of cervix 05/30/2008 Spondylosis of unspecified s ite without mention of myelopathy 03/08/2008 03/04/2013 Other convulsions 08/15/2007 03/04/2013 Other specified viral warts 05/28/2007 03/04/2013 Dermatophytosis of foot 05/28/200702/09 Bipolar disorder, unspecified 01/28/2007 08/15/2010 Other and unspecified hyperlipidemia 01/28/2007 03/02/2010 Unspecified symptom associat ed with female genital organs 08/03/2006 03/04/2013 Leukocytosis 03/04/2013 Overview (05/18/2009): reactive, likely sec to smoking (see path report 04/28/08) Encounters Date Type Department Care Team Description 01/24/2025 Orders Only [facility] Scanner 1 scan: (1-Ord) [facility], 01/24/2025 01/20/2025 Telephone [facility] [address] [place] [address] Shena Aldana MD Referral (Eye exam) 12/23/2024 2:25 PM SALT LIFTER E-Visit [facility] [address] [place] [address] Shena Aldana MD eVisit for Vaginal Discharge / Irritation 12/23/2024 8:30 AM SALT LIFTER - 12/23/2024 11:59 PM SALT LIFTER Hospital Encounter [facility] EMG/EEG/EP [address] [facility] [address] [place] [address] Shena Aldana MD Beck, Elizabeth Haule, MD Prelesnik, Jane D Bilateral hand numbness 12/22/2024 11:30 AM SALT LIFTER Procedure Only [facility] [address] [place] [address] Floresita Fair MD Procedure (Botox no sedation) 12/22/2024 10:55 AM SALT LIFTER - 12/22/2024 11:59 PM SALT LIFTER Hospital Encounter [facility] [address] [place] [address] Floresita Fair MD 12/22/2024 Travel 12/18/2024 Travel 12/15/2024 2:00 PM SALT LIFTER Office Visit [facility] [address] [place] [address] Shena Aldana MD Extremity Weakness (Bilateral hand weakness for over a year.Numbness); Medication Management (has not taken any medications for a few months. ) 12/15/2024 Travel 12/12/2024 Travel 11/08/2024 2:15 AM SALT LIFTER E-Visit [facility] [address] [place] [address] Shena Aldana MD eVisit for Vaginal Discharge / Irritation from Last 3 Months Immunizations Immunization Administration Dates Next Due COVID-19 VACCINE SPIKEVAX (M ODERNA 50MCG/0.5ML) 12YO+ PFS 12/15/2024,11/24/2023 COVID-19 vaccine (Pfizer-Bio NTech 30mcg/0.3mL) 12YO+ BIVALENT PF, MDV 10/16/2022 COVID-19 vaccine (Pfizer-Bio NTech 30mcg/0.3mL) PF, MDV 07/18/2021,06/27/2021 DTP 04/22/1985,01/22/1985,1984 Hepatitis B (Adult) 12/25/2000,06/06/2000,1999 INFLUENZA, IIV3 PF (AGE >= 6 MO) 12/15/2024 Influenza A (H1N1), Inactiva adin (Age >=3 Years) 11/15/2009 Influenza, IIV3 (Age >=3 years) 09/08/20 13,08/27/2012,07/26/2010,2009,08/19/2007,09/12/2005 Influenza, IIV4 11/24/2023, 2,08/12/2016,2013 MMR 02/01/1986 Oral Polio Vaccine 01/22/1985,1984 Pneumococcal Conj 20-valent (Prevnar 20) 10/16/2022 Pneumococcal Poly,23-Valent (Pneumovax) 11/16/2012 Td (Age >=7 Years) 03/05/2006 Tdap 10/16/2022,08/27/2012 Family History Medical History Relation Name Comments Other Brother 2 Depression Cancer Father testicular Other Father Depression Heart Disease Mother Other Mother Depression Cancer Paternal Grandfather Diabetes Paternal Grandmother Other Paternal Grandmother Depress ion Relation Name Status Comments Brother 1 Alive Brother 2 Father Alive Maternal Grandfather Maternal Grandmother Mother Alive Paternal Grandfather Paternal Grandmother Social History Tobacco Use Types Packs/Day Years Used Date Smoking Tobacco: Every Day Cigarettes 1 12 Smokeless Tobacco: Never Tobacco Cessation:Ready to Q uit: No; Counseling Given: Not Answered Comments:1 p.p.d. > not quite ready yet. Alcohol Use Standard Drinks/Week Comments Yes 0 (1 standard drink = 0.6 oz pur e alcohol) very seldom; no desire. PHQ-2 Answer Date Recorded PHQ-2 TOTAL SCORE 2 11/24/2023 Social Connections Answer Date Recorded Do you often feel lonely or isolated from those around you? 0 12/15/2024 Financial Resource Strain Answer Date R ecorded Difficulty of Paying Living Expenses 3 12/15/2024 Difficulty of Paying Living Expenses Not on file 12/15/2024 Food Insecurity Answer Date Recorded Do you worry your food will run out before you are able to buy more? 1 12/15/2024 Transportation Needs Answer Date Record ed Does lack of transportation keep you from medica l appointments? 1 12/15/2024 Does lack of transportation keep you from work, meetings or getting things that you need? 1 12/15/2024 Housing Stability Answer Date Recorded What is your housing situation today? 2 12/15/2024 Utilities Answer Date Recorded Do you have trouble paying f or utilities (for example, heat, electricity, water, phone)? 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 Not on file Not on file N ot on file [id number] Not on file Not on file Not on file Obstetrics History Para Term AB IAB SAB Ectopic Multiple Livin g Live Births 0 0 0 0 0 0 0 0 0 Last Filed Vital Signs Vital Sign Reading Time Taken Comments Blood Pressure 151/87 12/22/2024 11:40 AM SALT LIFTER Pulse 86 12/22/2024 11:40 AM SALT LIFTER Temperature 37 C (98.6 F) 12/22/2024 10:57 AM SALT LIFTER Respiratory Rate 16 12/22/2024 10:57 AM SALT LIFTER Oxygen Saturation 99% 12/22/2024 10:57 AM SALT LIFTER Inhaled Oxygen Concentration - - Weight 106.1 kg (234 lb) 12/15/2024 2:01 PM SALT LIFTER Height 168.9 cm (5' 6.5) 07/21/2024 11:23 AM CD T Body Mass Index 37.2 07/21/2024 11:23 AM CDT Plan of Treatment Upcoming Encounters Date Type Department Care Team (Late st Contact Info) Description 03/07/2025 11:00 AM CDT Hospital Encounter [address] [address] Floresita Fair MD [address] [address] 03/07/2025 11:00 AM CDT Procedure Only [facility] [address] [place] [address] Floresita Fair MD [address] [address] 03/16/2025 8:00 AM CDT Hospital Encounter [address] [address] Floresita Fair MD [address] [address] 03/16/2025 8:00 AM CDT Procedure Only [facility] [address] [address] Floresita Fair MD [address] [address] 03/16/2025 10:30 AM CDT Office Visit [facility] [address] [place] [address] Shena Aldana MD [address] [place] [address] Health Maintenance Due Date Last Done Comments Depression screening for age 12+ 11/24/2024 11/24/2023, 11/24/2023, 11/11/2022, Additional history exists Pap test for age 21-65 06/03/2025 (Verified in Care Everywhere or Patient Record), 01/12/2024 (Verified in Care Everywhere or Patient Record), 12/18/2023, Additional history exists BMI (ht and wt on same day) for age 18+ 07/21/2025 07/21/2024, 02/25/2024, 01/21/2024, Additional history exists Tetanus booster 10/16/2032 10/16/2022, 08/10, 03/05/2006 Hepatitis B series for Diabetes Completed 12/25/2000, 06/06/2000, 05/06/2000 HIV for age 15-65 Completed 08/28/2009 Pneumococcal series for age 6-49 Completed 10/16/20, 11/16/2012 Tdap Completed 10/16/2022, 08/27/2012 Hepatitis C screening for ag e 18-79 Completed 01/20/2023 COVID-19 vaccine series Completed 12/15/19, 11/24/2023, 10/16/2022, Additional history exists Influenza Vaccine Completed 12/15/2024, , 10/16/2022, Additional history exists Goals Goal Patient Goal Type Associated Problems Recent Progress Patient-Stated? Author DIABETES-KEEPS DAILY LOG OF GLUCOSE CHECKS Diet Rosanne Mojica DIABETES-PATIENT CHECKS BLOOD SUGAR 3-4 TIMES PER WEEK Diet Rosanne Mojica DIABETES-PATIENT TAKES LANTUS INJECTION EACH MORNING PRESCRIBED Diet Rosanne Mojica Procedures Procedure Name Priority Date/Time Associated Diagnosis Comments SCAN-EYE EXAM 01/24/2025 12:00 AM CDT EMG Routine 12/23/2024 Bilateral hand numbness CHEMODENERVATION Routine 12/22/2024 10:5 3 AM SALT LIFTER Chronic migraine with aura, intractable, with status migrainosus BASIC METABOLIC PANEL Routine 12/15/2024 1:50 PM SALT LIFTER Diabetes mellitus without complication (HC) LIPID PANEL W REFLEX MEASURED LDL Routine 12/15/2024 1:50 PM SALT LIFTER Diabetes mellitus without complication (HC) HEMOGLOBIN A1C MONITORING (POCT) Routine 12/15/2024 1:49 PM SALT LIFTER Diabetes mellitus without complication (HC) HPV HIGH RISK Routine 12/18/2023 10:10 AM SALT LIFTER Screening for cervical cancer LC HCV ANTIBODY RFX TO QUANT PCR Routine 01/20/2023 11:40 AM CDT Need for hepatitis C screening test ANTI HIV 1/2 Routine 08/28/2009 12:04 PM CDT Exposure to Sexually Transmitted Disease (STD) from Last 3 Months or Most Recently Relevant to Health Maintenance Results * SCAN-EYE EXAM (01/24/2025 12:00 AM CDT) us Scanner OTHER Final Result * EMG (12/23/2024) us Shena Aldana MD NEUROLOGY ORD Final R esult * (ABNORMAL) LIPID PANEL W REFLEX MEASURED LDL (12/15/2024 1:50 PM SALT LIFTER) CHOLESTEROL, TOTAL 229(H) <200 mg/dL [facility] HDL CHOLESTEROL 45(L) > OR = 50 mg/dL [facility] TRIGLYCERIDES 215(H) <150 mg/dL [facility] Comment: If a non-fasting specimen was collected, consider repeat triglyceride testing on a fasting specimen if clinically indicated. Pee et al. J. of Clin. Lipidol. 2015;9:129-169. LDL-CHOLESTEROL 148(H) mg/dL (calc) [facility] Comment: Reference range: <100 Desirable range <100 mg/dL for primary prevention; <70 mg/dL for patients with CHD or diabetic patients with > or = 2 CHD risk factors. LDL-C is now calculated using the Yuval calculation, which is a validated novel method providing better accuracy than the Friedewald equation in the estimation of LDL-C. Evgeny FERGUSON et al. TREVON. 2013;310(19): 8772-3785 (http://education.Cisco/faq/VNV881) CHOL/HDLC RATIO 5.1(H) <5.0 (calc) [facility] NON HDL CHOLESTEROL 184(H) <130 mg/dL (calc) [facility] Comment: For patients with diabetes plus 1 major ASCVD risk factor, treating to a non-HDL-C goal of <100 mg/dL (LDL-C of <70 mg/dL) is considered a therapeutic option. Blood BLOOD SPECIMEN / Unknown 12/15/2024 1:50 PM SALT LIFTER 12/15/2024 1:51 PM SALT LIFTER Shena Aldana MD CHEMISTRY Final R esult [facility] [address] [place] [address], [employer] [address] * (ABNORMAL) BASIC METABOLIC PANEL (12/15/2024 1:50 PM SALT LIFTER) Pathologist [facility] GLUCOSE 284(H) 65 - 99 mg/dL [facility] Comment: Fasting reference interval For someone without known diabetes, a glucose value >125 mg/dL indicates that they may have diabetes and this should be confirmed with a follow-up test. UREA NITROGEN (BUN) 11 7 - 25 mg/dL [facility] CREATININE 0.64 0.50 - 0.99 mg/dL [facility] EGFR 115 > OR = 60 mL/min/1. 73m2 [facility] BUN/CREATININE RATIO SEE NOTE: 6 (calc) [facility] Comment: Not Reported: BUN and Creatinine are within reference range. SODIUM 135 135 - 146 mmol/L [facility] POTASSIUM 4.2 3.5 - 5.3 mmol/L [facility] CHLORIDE 101 98 - 110 mmol/L [facility] CARBON DIOXIDE 25 20 - 32 mmol/L [facility] ELECTROLYTE BALANCE 9 7 - 17 mmol/L (calc) [facility] CALCIUM 9.3 8.6 - 10.2 mg/dL [facility] Blood BLOOD SPECIMEN / Unknown 12/15/2024 1:50 PM SALT LIFTER 12/15/2024 1:51 PM SALT LIFTER Shena Aldana MD CHEMISTRY Final R esult Performing Organization Address City/[facility]/ZIP Co de Phone Number [facility] [address] [place] [address], [place] [phone] [facility] [address] [place] [address] * (ABNORMAL) POCT Hemoglobin A1C Monitoring (12/15/2024 1:49 PM SALT LIFTER) Pathologist [facility] POC HEMOGLOBIN A1C 11.1(H) <6.0 % OF TOTAL HGB [facility] Comment: Any point of care results exhibiting inconsistency with the patient's clinical status should be repeated using a different testing method. Blood BLOOD SPECIMEN / Unknown 12/15/2024 1:49 PM SALT LIFTER 12/15/2024 1:50 PM SALT LIFTER us Shena Aldana MD CHEMISTRY Final R esult [facility] [address] [place] [address], [place] [phone] [facility] [address] [place] [address] * (ABNORMAL) HPV HIGH RISK (12/18/2023 10:10 AM SALT LIFTER) TYPE 16 Positive(A) Negative 12/22/2023 5:35 PM SALT LIFTER [facility] TYPE 18 Negative Negative 12/22/2023 5:35 PM SALT LIFTER [facility] OTHER HIGH RISK TYPES Negative Negative 12/22/2023 5:35 PM SALT LIFTER [facility] Other (Cervical) Non-Blood / Unknown 12/18/2023 10:10 AM SALT LIFTER 12/18/2023 4:46 PM SALT LIFTER Narrative [facility] - 12/22/2023 5:35 PM SALT LIFTER Specimen is positive for HPV type 16 DNA. HPV types 18, 31, 33, 35, 39, 45, 51, 52, 56, 58, 59, 66 and 68 DNA were undetectable or below the pre-set threshold Methodology: Michael Chente 4800 HPV Test Shena Aldana MD MICROBIOLOGY Final R esult [facility] [address] [place] [address], [place] * HCV ANTIBODY RFX TO QUANT PCR (01/20/2023 11:40 AM CDT) Pathologist [facility] HCV Ab Non Reactive Non Reactive 01/22/2023 9:06 PM CDT [facility]IC TESTING (CET) Blood BLOOD SPECIMEN / Unknown Venipuncture / Unknown 01/20/2023 11:40 AM CDT 01/20/2023 11:43 AM CDT Narrative [facility] (CET) - 01/22/2023 9:06 PM CDT Performed at: [address] [place] [address] [id number] Senior Electrical Project Manager: Rah Sellers MD, Phone: [phone] Shena Aldana MD LABORATORY Final R esult [facility] ([facility]) [address] [place] [address], [place] * ANTI HIV 1/2 (08/28/2009 12:04 PM CDT) ANTI HIV 1/2 Non-reacti ve [facility] Blood specimen (specimen) BLOOD SPECIMEN / Unknown 08/28/2009 12:04 PM CDT 08/28/2009 12:01 PM CDT us Clinton Bui MD SEND OUTS Final R esult [facility] INTERNAL ZIP [address] [address] from Last 3 Months or Most Recently Relevant to Health Maintenance [place] [address] [place] [address] [employer]HIC[employer] INS [facility] [employer] WORK[employer] COMP [employer]VA [employer] [id number] [place] [id number] Advance Directives * Full Code (Latest Code Status on File) Date Activated Date Inactivated Comments 11/12/2010 7:29 AM 11/12/2010 2:08 PM * Full Code Date Activated Date Inactivated Comments 10/31/2010 8:00 AM 10/31/2010 1:19 PM * Full Code Date Activated Date Inactivated Comments 03/02/2010 8:17 PM 03/03/2010 5:08 PM * Full Code Date Activated Date Inactivated Comments 08/10/2008 3:05 PM 08/10/2008 5:26 PM Care Teams Bell Ringer Relationship Specialty Start Date End Date Shena Aldana MD [address] [place] [address] PCP - General Family Practice 05/02/20 Rabia Alarcon NP Psychiatry Nurse Practitioner 02/24/17
--- NOTE | 2025-02-01 09:46 | ED.GENADULT ---
HPI - General Adult General Date Seen: 02/01/25 Chief complaint: Abdominal Pain Stated complaint: vomiting x24 hours Time Seen by Provider: 02/01/25 09:34 Source: patient Mode of arrival: ambulatory Limitations: no limitations History of Present Illness HPI narrative: Patient is a 39-year-old female presenting to the emergency department for nausea and vomiting. Has a history of gastric reflux, anxiety, hypertension, diabetes. Current every day smoker. States since yesterday afternoon she has been very nauseated and has been vomiting. She cannot eat or drink anything due to the nausea. Last time she was able to keep anything down was yesterday morning. Has not had any fevers but has noted chills. Has also been having diarrhea and diffuse abdominal pain. Has had previous appendectomy. Not aware of any sick contacts. Denies chest pain, shortness of breath, lightheadedness, dizziness, weakness, numbness, dysuria. Denies having symptoms like this before. No other concerns noted. Related Data Home Medications ?Medication ?Instructions ?Recorded ?Confirmed amlodipine 5 mg tablet 5 mg 01/10/23 bupropion HCl 150 mg 24 hr tablet, 150 mg PO 01/10/23 extended release (Wellbutrin XL) empagliflozin 25 mg tablet 25 mg PO 01/10/23 (Jardiance) ergocalciferol (vitamin D2) 1,250 1,250 mcg PO 01/10/23 mcg (50,000 unit) capsule lisinopril 10 mg tablet 10 mg PO 01/10/23 metformin 1,000 mg tablet 1,000 mg PO 01/10/23 verapamil 240 mg 24 hr 240 mg PO 01/10/23 capsule,extended release atorvastatin 10 mg tablet 10 mg PO QPM 07/16/24 02/01/25 escitalopram oxalate 10 mg tablet 10 mg PO 07/16/24 insulin glargine 100 unit/mL (3 60 unit subcut QPM 07/16/24 02/01/25 mL) subcutaneous pen (Lantus Solostar U-100 Insulin) Allergies Allergy/AdvReac Type Severity Reaction Status Date / Time sumatriptan (From Imitrex) Allergy Verified 02/01/25 09:17 topiramate (From Topamax) Allergy Verified 02/01/25 09:17 cefaclor (From Ceclor) AdvReac Verified 02/01/25 09:17 ibuprofen AdvReac Verified 02/01/25 09:17 some insulins Allergy Uncoded 10/05/22 12:07 Review of Systems Status of ROS: Reports: 10 or more systems reviewed and unremarkable except as noted in History and below [facility] Medical History GERD (gastroesophageal reflux disease) ?K21.9 - Gastro-esophageal reflux disease without esophagitis (ICD-10) Anxiety ?F41.9 - Anxiety disorder, unspecified (ICD-10) Hypertension ?I10 - Essential (primary) hypertension (ICD-10) Diabetes ?E11.9 - Type 2 diabetes mellitus without complications (ICD-10) Cardiomyopathy ?I42.9 - Cardiomyopathy, unspecified (ICD-10) Surgical History Status post cholecystectomy ?Z90.49 - Acquired absence of other specified parts of digestive tract (ICD-10) Social History Smoking Status: Current every day smoker What tobacco products do you use: cigarettes Do you use any of these nicotine containing products: Vaping Products Second hand tobacco smoke exposure: No How often do you have a drink containing alcohol: never How often do you have six or more drinks on one occasion: Never AUDIT-C Alcohol total score: 0 Non-prescribed substance use: former substance user 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 Moist mucous membranes. Neck: Symmetric, trachea midline, No thyromegaly. CVS: RRR, No murmurs or gallops. Peripheral pulses 2+ and equal in all extremities RESP: Unlabored respiratory effort. Clear to auscultation bilaterally. GI: Diffuse mild tenderness, Nondistended, No rebound or guarding. MSK:Extremities w/o deformity, Normal Active ROM Skin: Warm, Dry. No rashes or lesions. Neuro: Normal Muscle tone, No focal neurological deficits. Psych: Awake, Alert, & Oriented x3. Appropriate mood and affect. Const: Vital Signs, click to edit/add: Vital Signs - 24 hr 02/01/25 09:11 02/01/25 11:02 02/01/25 12:51 Temperature 97.7 F Pulse Rate [Pulse Oximeter] 96 90 Respiratory Rate 20 Blood Pressure [Le ft Forearm] 146/89 H 160/94 H 130/85 Pulse Oximetry 96 95 Oxygen Delivery Me thod Room Air Room Air Course Vital Signs Vital signs: Initial Vital Signs Temperature 97.7 F 02/01/25 09:11 Temperature Source Temporal Artery Scan 02/01/25 09:11 Pulse Rate 96 02/01/25 09:11 Respiratory Rate 20 02/01/25 09:11 Blood Pressure 146/89 H 02/01/25 09:11 Blood Pressure Mean 108 H 02/01/25 09:11 Blood Pressure Position Right Lateral 02/01/25 09:11 Pulse Oximetry 96 02/01/25 09:11 Oxygen Delivery Method Room Air 02/01/25 09:11 Vital Signs Temperature 97.7 F 02/01/25 09:11 Pulse Rate 96 02/01/25 09:11 Respiratory Rate 20 02/01/25 09:11 Blood Pressure 146/89 H 02/01/25 09:11 Pulse Oximetry 96 02/01/25 09:11 Oxygen Delivery Method Room Air 02/01/25 09:11 Temperature 97.7 F 02/01/25 09:11 Pulse Rate 90 02/01/25 11:02 Respiratory Rate 20 02/01/25 09:11 Blood Pressure 130/85 02/01/25 12:51 Pulse Oximetry 95 02/01/25 11:02 Oxygen Delivery Method Room Air 02/01/25 11:02 Medications Administered Medications: Discontinued Medications Generic Name Dose Route Start Last Admin Trade Name Freq PRN Reason Stop Dose Admin Lactated Ringer's 1,000 mls @ 1,000 mls/hr 02/01/25 09:34 02/01/25 11:06 Lactated Ringers 1000 Ml IV 02/01/25 10:33 Infused .Q1H ONE Infusion Metoclopramide HCl 10 mg 02/01/25 10:39 02/01/25 10:59 Metoclopramide Hcl 5 Mg/Ml Inj IVP 02/01/25 10:40 10 mg ONCE ONE Administration Morphine Sulfate 4 mg 02/01/25 11:43 02/01/25 11:47 Morphine 4 Mg/Ml Inj IVP 02/01/25 11:44 4 mg ONCE ONE Administration Ondansetron HCl 4 mg 02/01/25 09:34 02/01/25 09:49 Ondansetron 2 Mg/Ml Inj IVP 02/01/25 09:35 4 mg ONCE ONE Administration Medical Decision Making MDM Narrative Medical decision making narrative: Patient is a 39-year-old female presenting to the emergency department for nausea, vomiting, diarrhea. Has not noticed any blood in her vomit. Is not aware of any sick contacts there will check a COVID/flu/RSV. Will check CBC and CMP showed for any other abnormalities. I spoke to her about doing a CT scan since she is also having this abdominal pain to make sure nothing else is causing her symptoms. She is agreeable to this plan. Will give her Zofran for nausea and lactated Ringer's to rehydrate her. She was still feeling nauseated after the initial medication so Reglan was given. Lab work returned showing no acute concerning abnormalities. Viral swabs are negative. She continues to have nausea after the Reglan but does state it is improved. CT scan returned showing what appears to be a small-bowel obstruction. She denies having history small bowel obstructions before. Has had previous cholecystectomy and appendectomy which could cause adhesions that would lead to this small bowel obstruction. When I spoke to her again about her diarrhea she states it is frequent small amounts. Will give her morphine for pain which she states has helped. Was able speak to the on-call general surgeon recommends medical management at this time. It also recommend NGT with patient still nauseated. The patient states her nausea is much improved I spoke to her about an NG tube and this time she declined 1 but is agreeable to 1 if her nausea gets worse again. Patient will be admitted to the hospitalist service Lab Data Labs: Lab Results 02/01/25 Range/Units 09:42 WBC 11.98 H (4.50-11.00) K/uL RBC 5.30 H (4.00-5.20) m/uL Hgb 14.5 (12.0-16.0) gm/dL Hct 44.9 (33.0-51.0) % MCV 85 (80-100) fL MCH 27 (26-34) pg MCHC 32 (32-36) gm/dL RDW Coeff of Sammi 14.6 (11.5-15.5) % Plt Count 452 H (140-440) K/uL Neut % (Auto) 81.7 H (42.0-72.0) % Lymph % (Auto) 11.3 L (20-44) % Pierce % (Auto) 5.5 (0.0-11.0) % Eos % (Auto) 0.8 (0.0-7.0) % Baso % (Auto) 0.3 (0.0-3.0) % Neut # (Auto) 9.80 H (1.7-7.0) K/uL Lymph # (Auto) 1.40 (0.90-2.90) K/uL Pierce # (Auto) 0.70 (0.00-0.90) K/UL Eos # (Auto) 0.10 (0.00-0.50) K/uL Baso # (Auto) 0.00 (0.00-0.30) K/uL Abs Immat Gran (auto) 0.00 (0.00-0.30) K/uL Imm/Tot Granulo (auto) 0.4 % Sodium 134 L (135-149) mmol/L Potassium 4.0 (3.6-5.1) mmol/L Chloride 100 (96-114) mmol/L Carbon Dioxide 23 (20-32) mmol/L Anion Gap 11 (7-15) mEq/L BUN 15 (5-24) mg/dL Creatinine 0.7 (0.5-1.5) mg/dL Estimated Creat Clear 103.89 Estimated GFR 112 ml/min Glucose 137 H (60-115) mg/dL Calcium 9.1 (8.4-10.6) mg/dL Total Bilirubin 0.9 (0.1-1.5) mg/dL AST 26 (12-35) U/L ALT 23 (4-35) U/L Alkaline Phosphatase 94 (40-150) U/L Total Protein 8.1 (6.0-8.3) g/dL Albumin 4.7 (3.3-5.0) g/dL SARS-CoV-2 (PCR) Negative SARS-CoV-2 (Negative) Influenza Type A (PCR) Negative PCR FLU A (Negative) Influenza Type B (PCR) Negative PCR FLU B (Negative) RSV (PCR) Negative PCR RSV (Negative) Imaging Data CT scan abdomen and pelvis: Radiologist's impression: 1. Dilated small bowel with distal decompression consistent with a small-bowel obstruction. Underlying etiology is likely adhesions. 2. Mild hepatic steatosis. 3. Indeterminate right adrenal lesion although stable compared to the 2022 exam. Please note that all CT scans at this facility use dose modulation, iterative reconstruction, and/or weight-based dosing when appropriate to reduce radiation dose to as low as reasonably achievable. Dictated by Mihir Sena MD @ 02/01/2025 11:23:28 AM Discharge Plan Discharge Clinical Impression: Small bowel obstruction Patient Disposition: Admitted As Observation Condition: Stable
[2025-02-01] MEDS: LACTATED RINGERS 1000 ML 1,000 ML IV (09:47)
[2025-02-01 09:49] LABS: Basophils Percent Auto 0.3 % (0.0-3.0); Eosinophils Percent Auto 0.8 % (0.0-7.0); Hematocrit 44.9 % (33.0-51.0); Hemoglobin* 14.5 gm/dL (12.0-16.0); Immature Granulocytes Pct Auto 0.4 %; Lymphocytes Percent Auto 11.3 % (20-44); Mean Corpuscular HGB Conc 32 gm/dL (32-36); Mean Corpuscular Hemoglobin 27 pg (26-34); Mean Corpuscular Volume 85 fL (80-100); Monocytes Percent Auto 5.5 % (0.0-11.0); Neutrophils Percent Auto 81.7 % (42.0-72.0); Platelet Count* 452 K/uL (140-440); RDW Coefficient of Variation % 14.6 % (11.5-15.5); White Blood Count* 11.98 K/uL (4.50-11.00)
[2025-02-01] MEDS: ONDANSETRON 2 MG/ML inj 4 MG IVP ×2 (09:49→19:46)
[2025-02-01 09:51] LABS: Slide Review Reflex No
[2025-02-01 10:03] LABS: Albumin* 4.7 g/dL (3.3-5.0); Chloride* 100 mmol/L (96-114); Sodium* 134 mmol/L (135-149)
[2025-02-01 10:05] LABS: Blood Urea Nitrogen* 15 mg/dL (5-24); Creatinine* 0.7 mg/dL (0.5-1.5); Est. Creatinine Clearance* 103.89; Estimated Glomerular Filt Rate 112 ml/min
[2025-02-01 10:06] LABS: Alanine Aminotransferase* 23 U/L (4-35); Alkaline Phosphatase* 94 U/L (40-150); Anion Gap 11 mEq/L (7-15); Aspartate Amino Transferase* 26 U/L (12-35); Bilirubin Total* 0.9 mg/dL (0.1-1.5); Calcium* 9.1 mg/dL (8.4-10.6); Carbon Dioxide* 23 mmol/L (20-32); Glucose* 137 mg/dL (60-115); Total Protein* 8.1 g/dL (6.0-8.3)
[2025-02-01 10:26] LABS: PCR FLU A Negative PCR FLU A (Negative); PCR FLU B Negative PCR FLU B (Negative); PCR RSV Negative PCR RSV (Negative); SARS PCR* Negative SARS-CoV-2 (Negative)
--- OUTSIDE RECORDS SUMMARY | 2025-02-01 10:27 | XMS_ITS | Clinical Summary ---
Author Organization [facility] Address [address] [place] [address] Care Team Providers Care Patient Centered Care Specialist Name Role Phone Rabia Alarcon MACHINE CASTINGS PLASTERER Unavailable Unavailable Shena Aldana MD Primary Care [...] glucose monitor READER (FreeStyle Delvis 14 Day [employer])Indications :Diabetes mellitus without complication (HC) As directed. [...] be used to read blood sugars per housing officer's directions. 1 Each 11/24/19 Active Insulin [place], Disposable, (UltiCare Pen Needle) 32 gauge x [...] be used to read blood sugars per housing officer's directions. 6 Each 3 06/10/20 24 Active [...] mellitus with other specified complication, unspecified whether terminologist insulin use (HC) Test 3 times per day. 100 Each 12/15/19 25 Active lancetsIndications :Type 2 diabetes mellitus with other specified complication, with long-term current use of insulin (HC) As directed. Test 3 times per day. 100 Each 12 12/15/19 25 Active Active Problems Problem Noted Date Diagnosed Date Cervical dysplasia 01/21/2024 Type 2 diabetes mellitus wit h other specified complication, unspecified whether terminologist insulin use 11/24/2023 Adrenal nodule 01/20/2023 Type [...] PHYSICIAN: Dr. Carolina Gage -Dr. Clemens = counselor education professor (last saw 05/27/14) MEDS: Januvia Pertinent/Abnormal LABS: [...] Plan Documents (Health Care Directive, POLST): No, Boiler Erector to review with patient . Patient has identified Specific Treatment Preferences: No Specific limits to treatment preferences NOT identified: ASSUME FULL TREATMENT. Pilar Mendosa RN RN [facility] Boiler Erector [facility] [phone] Recurrent herpes labialis 08/06/2011 Unspecified episodic mood disorder 03/29/2011 Overview (08/04/2012): Probable MDD, monitoring Carpal tunnel syndrome 11/12/2010 Fatty liver 09/17/2010 Scheuermann's disease 04/16/2010 Hyperlipidemia LDL goal < 100 01/18/2010 DUB (dysfunctional uterine bleeding) 02/06/2009 PCO (polycystic ovaries) 02/06/2009 Atypical squamous cells toby ot exclude high grade squamous intraepithelial lesion on cytologic smear of cervix (ASC-H) 10/05/2007 Overview (12/26/2023): 09/2007 ASCH 11/2007 [facility]: KAREN 1, Pap: NIL/HPV positive 12/2008 [facility]: Suspicious for HPV. Pap: LSIL/HPV positive 08/2009 NIL 07/2010 NIL 08/2012 NIL 07/2013 ASCUS/HPV positive 08/2013 [facility]: KAREN 1 03/2015 NIL/HPV negative 11/2016 NIL/HPV positive 11/2016 [facility]: suggestive of KAREN 1 01/2018 ASCUS/HPV+ 06/2018 NIL 06/2018 [facility]: suggestive of HPV 07/2021 NIL/HPV 16+, HPV [...] substance agreement signed 11/21/2017 04/09/2019 Overview (04/13/2018): [facility] (11/19/17) 90 day reminder signed. Iris Fu [facility]...........04/13/2018 8:42 AM Medical Home 05/27/2011 01/29/2012 Medical Home 03/22/2011 05/20/2011 Medical Home 01/09/2011 05/20/2011 Overview (01/09/2011): Boiler Erector Dori Duval RN [phone] Carpal tunnel syndrome 09/29/201002/16 Other specified episodic [...] Department Care Team Description 01/24/2025 Orders Only [facility] Scanner 1 scan: (1-Ord) [facility], 01/24/2025 01/20/2025 Telephone [facility] [address] [place] [address] Shena Aldana MD Referral (Eye exam) 12/23/2024 2:25 PM RUG RENOVATOR E-Visit [facility] [address] [place] [address] Shena Aldana MD eVisit for Vaginal Discharge / Irritation 12/23/2024 8:30 AM RUG RENOVATOR - 12/23/2024 11:59 PM RUG RENOVATOR Hospital Encounter [facility] EMG/EEG/EP [address] [facility] [address] [place] [address] Shena Aldana MD Beck, Elizabeth Haule, MD Prelesnik, Jane D Bilateral hand numbness 12/22/2024 11:30 AM RUG RENOVATOR Procedure Only [facility] [address] [place] [address] Floresita Fair MD Procedure (Botox no sedation) 12/22/2024 10:55 AM RUG RENOVATOR - 12/22/2024 11:59 PM RUG RENOVATOR Hospital Encounter [facility] [address] [place] [address] Floresita Fair MD 12/22/2024 Travel 12/18/2024 Travel 12/15/2024 2:00 PM RUG RENOVATOR Office Visit [facility] [address] [place] [address] Shena Aldana MD Extremity Weakness (Bilateral hand weakness for over a year.Numbness); Medication Management (has not taken any medications for a few months. ) 12/15/2024 Travel 12/12/2024 Travel 11/08/2024 2:15 AM RUG RENOVATOR E-Visit [facility] [address] [place] [address] Shena Aldana MD eVisit for Vaginal Discharge [...] on file Legal Sex Female 5:46 AM RUG RENOVATOR Gender Identity Not on file Sexual Orientation Not on file Occupation Industry Job Start Date Job End Date [employer] Not on file Not on file N ot on file [id number] Not on file Not on file Not on file Obstetrics History Para Term AB IAB SAB Ectopic Multiple Livin g Live Births 0 0 0 0 0 0 0 0 0 Last Filed Vital Signs Vital Sign Reading Time Taken Comments Blood Pressure 151/87 12/22/2024 11:40 AM RUG RENOVATOR Pulse 86 12/22/2024 11:40 AM RUG RENOVATOR Temperature 37 C (98.6 F) 12/22/2024 10:57 AM RUG RENOVATOR Respiratory Rate 16 12/22/2024 10:57 AM RUG RENOVATOR Oxygen Saturation 99% 12/22/2024 10:57 AM RUG RENOVATOR Inhaled Oxygen Concentration - - Weight 106.1 kg (234 lb) 12/15/2024 2:01 PM RUG RENOVATOR Height 168.9 cm (5' 6.5) 07/21/2024 11:23 AM CD T Body Mass Index 37.2 07/21/2024 11:23 AM CDT Plan of Treatment Upcoming Encounters Date Type Department Care Team (Late st Contact Info) Description 03/07/2025 11:00 AM CDT Hospital Encounter [address] [address] Floresita Fair MD [address] [address] 03/07/2025 11:00 AM CDT Procedure Only [facility] [address] [place] [address] Floresita Fair MD [address] [address] 03/16/2025 8:00 AM CDT Hospital Encounter [address] [address] Floresita Fair MD [address] [address] 03/16/2025 8:00 AM CDT Procedure Only [facility] [address] [address] Floresita Fair MD [address] [address] 03/16/2025 10:30 AM CDT Office Visit [facility] [address] [place] [address] Shena Aldana MD [address] [place] [address] Health Maintenance Due Date Last Done Comments [...] numbness CHEMODENERVATION Routine 12/22/2024 10:5 3 AM RUG RENOVATOR Chronic migraine with aura, intractable, with status migrainosus BASIC METABOLIC PANEL Routine 12/15/2024 1:50 PM RUG RENOVATOR Diabetes mellitus without complication (HC) LIPID PANEL W REFLEX MEASURED LDL Routine 12/15/2024 1:50 PM RUG RENOVATOR Diabetes mellitus without complication (HC) HEMOGLOBIN A1C MONITORING (POCT) Routine 12/15/2024 1:49 PM RUG RENOVATOR Diabetes mellitus without complication (HC) HPV HIGH RISK Routine 12/18/2023 10:10 AM RUG RENOVATOR Screening for cervical cancer LC HCV ANTIBODY [...] W REFLEX MEASURED LDL (12/15/2024 1:50 PM RUG RENOVATOR) CHOLESTEROL, TOTAL 229(H) <200 mg/dL [facility] [...] LDL-C. Evgeny FERGUSON et al. TREVON. 2013;310(19): 4729-8892 (http://education.AppLearn/faq/POG223) CHOL/HDLC RATIO 5.1(H) <5.0 (calc) [employer] [facility] Melvin NON HDL CHOLESTEROL 184(H) <130 mg/dL (calc) [facility] Comment: For patients with diabetes plus 1 major ASCVD risk factor, treating to a non-HDL-C goal of <100 mg/dL (LDL-C of <70 mg/dL) is considered a therapeutic option. Blood BLOOD SPECIMEN / Unknown 12/15/2024 1:50 PM RUG RENOVATOR 12/15/2024 1:51 PM RUG RENOVATOR Shena Aldana MD CHEMISTRY Final R esult [facility] [address] [place] [address], [employer] [address] * (ABNORMAL) BASIC METABOLIC PANEL (12/15/2024 1:50 PM RUG RENOVATOR) Pathologist [facility] GLUCOSE 284(H) 65 - 99 mg/dL [facility] Comment: Fasting reference interval For someone without known diabetes, a glucose value >125 mg/dL indicates that they may have diabetes and this should be confirmed with a follow-up test. UREA NITROGEN (BUN) 11 7 - 25 mg/dL [facility] CREATININE 0.64 0.50 - 0.99 mg/dL [facility] EGFR 115 > OR = 60 mL/min/1. 73m2 [facility] BUN/CREATININE RATIO SEE NOTE: 6 (calc) [...] BLOOD SPECIMEN / Unknown 12/15/2024 1:50 PM RUG RENOVATOR 12/15/2024 1:51 PM RUG RENOVATOR Shena Aldana MD CHEMISTRY Final R esult Performing Organization Address City/[facility]/ZIP Co de Phone Number [facility] [employer] [facility] [address] [place] [address], [place] [phone] [facility] [address] [place] [address] * (ABNORMAL) POCT Hemoglobin A1C Monitoring (12/15/2024 1:49 PM RUG RENOVATOR) Pathologist [facility] POC HEMOGLOBIN A1C 11.1(H) <6.0 % OF TOTAL HGB [facility] Comment: Any point of care results exhibiting inconsistency with the patient's clinical status should be repeated using a different testing method. Blood BLOOD SPECIMEN / Unknown 12/15/2024 1:49 PM RUG RENOVATOR 12/15/2024 1:50 PM RUG RENOVATOR us Shena Aldana MD CHEMISTRY Final R esult [facility] [address] [place] [address], [place] [phone] [facility] [address] [place] [address] * (ABNORMAL) HPV HIGH RISK (12/18/2023 10:10 AM RUG RENOVATOR) TYPE 16 Positive(A) Negative 12/22/2023 5:35 PM RUG RENOVATOR [facility] TYPE 18 Negative Negative 12/22/2023 5:35 PM RUG RENOVATOR [facility] OTHER HIGH RISK TYPES Negative Negative 12/22/2023 5:35 PM RUG RENOVATOR [facility] Other (Cervical) Non-Blood / Unknown 12/18/2023 10:10 AM RUG RENOVATOR 12/18/2023 4:46 PM RUG RENOVATOR Narrative [facility] - 12/22/2023 5:35 PM RUG RENOVATOR Specimen is positive for HPV type 16 DNA. HPV types 18, 31, 33, 35, 39, 45, 51, 52, 56, 58, 59, 66 and 68 DNA were undetectable or below the pre-set threshold Methodology: Michael Chente 4800 HPV Test Shena Aldana MD MICROBIOLOGY Final R esult [facility] [address] [place] [address], [place] * HCV ANTIBODY RFX TO QUANT PCR (01/20/2023 11:40 AM CDT) Pathologist [facility] HCV Ab Non Reactive Non Reactive 01/22/2023 9:06 PM CDT [facility] Blood BLOOD SPECIMEN / Unknown Venipuncture / Unknown 01/20/2023 11:40 AM CDT 01/20/2023 11:43 AM CDT Narrative [facility] - 01/22/2023 9:06 PM CDT Performed at: [address] [place] [id number] Mail Clerks Supervisor: Rah Sellers MD, Phone: [phone] Shena Aldana MD LABORATORY Final R esult [facility] ([facility]) [address] [place] [address], [place] * ANTI HIV 1/2 (08/28/2009 12:04 PM CDT) ANTI HIV 1/2 Non-reacti ve [facility] Blood specimen (specimen) BLOOD SPECIMEN / Unknown 08/28/2009 12:04 PM CDT 08/28/2009 12:01 PM CDT us Clinton Bui MD SEND OUTS Final R esult [facility] INTERNAL ZIP [address] [address] from Last 3 Months or Most Recently Relevant to Health Maintenance [place] [address] [place] [address] [employer] [facility] [employer] COMP [employer] [id number] [place] [id number] Advance Directives * Full Code (Latest Code [...] 3:05 PM 08/10/2008 5:26 PM Care Teams Patient Centered Care Specialist Relationship Specialty Start Date End Date Shena Aldana MD [address] [place] [id number] PCP - General Family Practice 05/02/20 Rabia Alarcon NP Psychiatry Nurse Practitioner 02/24/17
[2025-02-01] MEDS: METOCLOPRAMIDE HCL 5 MG/ML INJ 10 MG IVP (10:59)
[2025-02-01] MEDS: MORPHINE 4 MG/ML INJ IVP (11:47)
--- NOTE | 2025-02-01 13:53 | PM.GSCN ---
History of Present Illness Consult details Date Seen: 02/01/25 Consult date: 02/01/25 Narrative: Patient presented to the emergency department with persistent nausea and vomiting. Her symptoms started yesterday around 2:00 p.m.. She also reports associated diarrhea. She has continued to pass gas with bowel movements. She had diarrhea right before she came to the emergency department this morning. She describes a crampy abdominal pain in the middle of her abdomen that seems to come and go. Denies any sharp stabbing pain. She has never had anything like this before. She has felt feverish, but no documented fevers. No other sick contacts at home. Her abdominal surgical history is positive for laparoscopic appendectomy and cholecystectomy. Review of Systems Status of ROS: Reports: 10 or more systems reviewed and unremarkable except as noted in History and below [facility] Medical History GERD (gastroesophageal reflux disease) ?K21.9 - Gastro-esophageal reflux disease without esophagitis (ICD-10) Anxiety ?F41.9 - Anxiety disorder, unspecified (ICD-10) Hypertension ?I10 - Essential (primary) hypertension (ICD-10) Diabetes ?E11.9 - Type 2 diabetes mellitus without complications (ICD-10) Cardiomyopathy ?I42.9 - Cardiomyopathy, unspecified (ICD-10) Surgical History Status post cholecystectomy ?Z90.49 - Acquired absence of other specified parts of digestive tract (ICD-10) Social History Smoking Status: Current every day smoker What tobacco products do you use: cigarettes Do you use any of these nicotine containing products: Vaping Products Second hand tobacco smoke exposure: No How often do you have a drink containing alcohol: never How often do you have six or more drinks on one occasion: Never AUDIT-C Alcohol total score: 0 Non-prescribed substance use: former substance user Non-prescribed substance use details: hx of meth use service: No Meds Home Medications and Allergies Home Medications ?Medication ?Instructions ?Recorded ?Confirmed ?Type amlodipine 5 mg tablet 5 mg 01/10/23 History bupropion HCl 150 mg 24 hr tablet, 150 mg PO 01/10/23 History extended release (Wellbutrin XL) empagliflozin 25 mg tablet 25 mg PO 01/10/23 History (Jardiance) ergocalciferol (vitamin D2) 1,250 1,250 mcg PO 01/10/23 History mcg (50,000 unit) capsule lisinopril 10 mg tablet 10 mg PO 01/10/23 History metformin 1,000 mg tablet 1,000 mg PO 01/10/23 History verapamil 240 mg 24 hr 240 mg PO 01/10/23 History capsule,extended release atorvastatin 10 mg tablet 10 mg PO QPM 07/16/24 02/01/25 History escitalopram oxalate 10 mg tablet 10 mg PO 07/16/24 History insulin glargine 100 unit/mL (3 60 unit subcut QPM 07/16/24 02/01/25 History mL) subcutaneous pen (Lantus Solostar U-100 Insulin) Allergies Allergy/AdvReac Type Severity Reaction Status Date / Time sumatriptan (From Imitrex) Allergy Verified 02/01/25 09:17 topiramate (From Topamax) Allergy Verified 02/01/25 09:17 cefaclor (From Ceclor) AdvReac Verified 02/01/25 09:17 ibuprofen AdvReac Verified 02/01/25 09:17 some insulins Allergy Uncoded 10/05/22 12:07 Exam Narrative: Exam Narrative: General: Alert and oriented, no acute distress Respiratory: Equal breath rise bilaterally, maintained on room air CV: Well perfused Abdomen: Soft, nontender to palpation with no guarding or rebound. Const: Vital Signs, click to edit/add: Vital Signs - 24 hr 02/01/25 09:11 02/01/25 11:02 02/01/25 12:51 Temperature 97.7 F Pulse Rate [Pulse Oximeter] 96 90 Respiratory Rate 20 Blood Pressure [Le ft Forearm] 146/89 H 160/94 H 130/85 Pulse Oximetry 96 95 Oxygen Delivery Me thod Room Air Room Air Results Labs Labs: Abnormal lab results 02/01/25 Range/Units 09:42 WBC 11.98 H (4.50-11.00) K/uL RBC 5.30 H (4.00-5.20) m/uL Plt Count 452 H (140-440) K/uL Neut % (Auto) 81.7 H (42.0-72.0) % Lymph % (Auto) 11.3 L (20-44) % Neut # (Auto) 9.80 H (1.7-7.0) K/uL Sodium 134 L (135-149) mmol/L Glucose 137 H (60-115) mg/dL Diabetes panel 02/01/25 Range/Units 09:42 Sodium 134 L (135-149) mmol/L Potassium 4.0 (3.6-5.1) mmol/L Chloride 100 (96-114) mmol/L Carbon Dioxide 23 (20-32) mmol/L BUN 15 (5-24) mg/dL Creatinine 0.7 (0.5-1.5) mg/dL Glucose 137 H (60-115) mg/dL Calcium 9.1 (8.4-10.6) mg/dL AST 26 (12-35) U/L ALT 23 (4-35) U/L Alkaline Phosphatase 94 (40-150) U/L Total Protein 8.1 (6.0-8.3) g/dL Albumin 4.7 (3.3-5.0) g/dL Calcium panel 02/01/25 Range/Units 09:42 Calcium 9.1 (8.4-10.6) mg/dL Albumin 4.7 (3.3-5.0) g/dL Pituitary panel 02/01/25 Range/Units 09:42 Sodium 134 L (135-149) mmol/L Potassium 4.0 (3.6-5.1) mmol/L Chloride 100 (96-114) mmol/L Carbon Dioxide 23 (20-32) mmol/L BUN 15 (5-24) mg/dL Creatinine 0.7 (0.5-1.5) mg/dL Glucose 137 H (60-115) mg/dL Calcium 9.1 (8.4-10.6) mg/dL Adrenal panel 02/01/25 Range/Units 09:42 Sodium 134 L (135-149) mmol/L Potassium 4.0 (3.6-5.1) mmol/L Chloride 100 (96-114) mmol/L Carbon Dioxide 23 (20-32) mmol/L BUN 15 (5-24) mg/dL Creatinine 0.7 (0.5-1.5) mg/dL Glucose 137 H (60-115) mg/dL Calcium 9.1 (8.4-10.6) mg/dL Total Bilirubin 0.9 (0.1-1.5) mg/dL AST 26 (12-35) U/L ALT 23 (4-35) U/L Alkaline Phosphatase 94 (40-150) U/L Total Protein 8.1 (6.0-8.3) g/dL Albumin 4.7 (3.3-5.0) g/dL All other labs normal. Imaging Abdomen CT scan report/results: report reviewed and image reviewed Progress Note:A&P Assessment and plan (1) Small bowel obstruction: Status: Acute Assessment and Plan: Patient present with 24 hours of nausea, vomiting and diarrhea. Clinical workup was obtained. Labs demonstrate mild leukocytosis (11.8). A CT scan was obtained and suspicious for small-bowel obstruction. Clinically patient's symptoms are more consistent with a partial small-bowel obstruction versus gastroenteritis. Recommend conservative management. -NPO, IV fluids -NG tube if patient has persistent nausea and vomiting but okay to hold off at this time -encourage ambulation Patient to be admitted to the hospitalist service. Will continue to follow, please call with any acute clinical changes.
--- NOTE | 2025-02-01 14:39 | PM.IMHP1 ---
Assessment and Plan Assessment and plan (1) Small bowel obstruction: Problem comment: Began somewhat as a gastroenteritis with vomiting and diarrhea but now just vomiting and CT evidence of obstruction. Likely secondary to adhesions from previous laparotomy. Conservative management with IV fluids, IV pain medication, IV antiemetics. Consult General surgery. Status: Acute (2) Hypertension: Problem comment: Hold some antihypertensives and monitor. Status: Acute (3) Diabetes: Problem comment: Hemoglobin A1c was 9.2 on 11/24/2024. Will hold oral hypoglycemics while she is NPO. Lantus will be divided b.i.d. and sliding scale insulin added for blood sugar control. Status: Acute Plan 39-year-old female admitted to the hospital with small-bowel obstruction. Associated with this she has chronic medical problems including diabetes with uncertain control, hypertension other pain problems, history of opioid use and tobacco abuse. Will provide conservative management for small-bowel obstruction and management of other medical problems in coordination with this. Consult General surgery. Total time spent today is 65 minutes in coordination of care, review of outside records, discussion with patient and other providers ongoing management of small-bowel obstruction and other medical problems Hospitalist- H&P: HPI History of Present Illness Date Seen: 02/01/25 Chief complaint: vomiting x24 hours Narrative: Moira Douglas is a 39 year old female presenting to the emergency department for a 1 day history of nausea and vomiting. Has a history of gastric reflux, anxiety, hypertension, diabetes. Current every day smoker. States since yesterday afternoon she has been very nauseated and has been vomiting. She also had diarrhea yesterday but not today. She cannot eat or drink anything due to the nausea and vomiting today. Last time she was able to keep anything down was yesterday morning. Has not had any fevers but has noted chills. Has also been having diarrhea and diffuse abdominal pain. Has had previous laparotomy about 2 decades ago for abdominal pain. At that time she also had an incidental appendectomy. Finding and surgery was primarily endometriosis. No previous bowel obstruction. Not aware of any sick contacts. No hematemesis, melena or hematochezia. Denies chest pain, shortness of breath, lightheadedness, dizziness, weakness, numbness, dysuria. Denies having symptoms like this before. Review of Systems Narrative: She reports being well recently until symptoms started yesterday afternoon. [facility] Medical History (Updated 02/01/25 @ 15:02 by Adarsh Pappas MD) Tobacco use disorder ?F17.200 - Nicotine dependence, unspecified, uncomplicated (ICD-10) Adrenal nodule ?E27.9 - Disorder of adrenal gland, unspecified (ICD-10) Generalized anxiety disorder ?F41.1 - Generalized anxiety disorder (ICD-10) Depression ?F32.A - Depression, unspecified (ICD-10) Degenerative joint disease (DJD) of lumbar spine ?M47.816 - Spondylosis without myelopathy or radiculopathy, lumbar region (ICD-10) Hyperlipidemia ?E78.5 - Hyperlipidemia, unspecified (ICD-10) Opioid use disorder ?F11.90 - Opioid use, unspecified, uncomplicated (ICD-10) Borderline personality disorder ?F60.3 - Borderline personality disorder (ICD-10) Migraine ?G43.909 - Migraine, unspecified, not intractable, without status migrainosus (ICD-10) Hepatic steatosis ?K76.0 - Fatty (change of) liver, not elsewhere classified (ICD-10) Polycystic ovary disease ?E28.2 - Polycystic ovarian syndrome (ICD-10) Obesity ?E66.9 - Obesity, unspecified (ICD-10) Endometriosis ?N80.9 - Endometriosis, unspecified (ICD-10) GERD (gastroesophageal reflux disease) ?K21.9 - Gastro-esophageal reflux disease without esophagitis (ICD-10) Anxiety ?F41.9 - Anxiety disorder, unspecified (ICD-10) Hypertension ?I10 - Essential (primary) hypertension (ICD-10) Diabetes ?E11.9 - Type 2 diabetes mellitus without complications (ICD-10) Cardiomyopathy ?I42.9 - Cardiomyopathy, unspecified (ICD-10) Surgical History (Updated 02/01/25 @ 14:55 by Adarsh Pappas MD) History of colposcopy ?Z98.890 - Other specified postprocedural states (ICD-10) History of carpal tunnel release ?Z98.890 - Other specified postprocedural states (ICD-10) H/O exploratory laparotomy ?Z98.890 - Other specified postprocedural states (ICD-10) H/O laparoscopy ?Z98.890 - Other specified postprocedural states (ICD-10) Status post cholecystectomy ?Z90.49 - Acquired absence of other specified parts of digestive tract (ICD-10) Family History (Updated 02/01/25 @ 14:56 by Adarsh Pappas MD) Mother Heart disease Depression Brother Depression Father Depression Social History (Updated 02/01/25 @ 14:57 by Adarsh Pappas MD) Narrative: She lives with her in [place]. She works at [employer]. She smokes a pack cigarettes a day. She does not drink alcohol. No recreational drug use. Code status is full. or mother would be healthcare power of employment attorney. What is your current living situation?: I presently have a place to live Problems where you live: no known problems Problems where you live details: n/a In the past 12 months, utilities in danger of being shut off: no In past 12 months, lack of transportation kept you from medical appts, meetings, work, or getting things needed for daily living: no In the past 12 mos, have been you worried that your food would run out before you had money to buy more?: never true In the past 12 mos, the food you bought just didn't last and you didn't have money to buy more?: never true Highest level of school completed/degree received: some college, no degree Smoking Status: Current every day smoker What tobacco products do you use: cigarettes Smoking packs per day: 1 Smoking cigarettes per day: 20.0 Do you use any of these nicotine containing products: Vaping Products Second hand tobacco smoke exposure: No How often do you have a drink containing alcohol: never How often do you have six or more drinks on one occasion: Never AUDIT-C Alcohol total score: 0 Non-prescribed substance use: former substance user Non-prescribed substance use details: hx of meth use Caffeine: Yes How often does anyone, including family, friends and others, physically hurt you: never How often does anyone, including family, friends and others, insult or talk down to you: never How often does anyone, including family, friends and others, threaten you with harm: never How often does anyone, including family, friends and others, scream or curse at you: never service: No Meds Home Medications and Allergies Home Medications ?Medication ?Instructions ?Recorded ?Confirmed ?Type amlodipine 5 mg tablet 5 mg 01/10/23 History bupropion HCl 150 mg 24 hr tablet, 150 mg PO 01/10/23 History extended release (Wellbutrin XL) empagliflozin 25 mg tablet 25 mg PO 01/10/23 History (Jardiance) ergocalciferol (vitamin D2) 1,250 1,250 mcg PO 01/10/23 History mcg (50,000 unit) capsule lisinopril 10 mg tablet 10 mg PO 01/10/23 History metformin 1,000 mg tablet 1,000 mg PO 01/10/23 History verapamil 240 mg 24 hr 240 mg PO 01/10/23 History capsule,extended release atorvastatin 10 mg tablet 10 mg PO QPM 07/16/24 02/01/25 History escitalopram oxalate 10 mg tablet 10 mg PO 07/16/24 History insulin glargine 100 unit/mL (3 60 unit subcut QPM 07/16/24 02/01/25 History mL) subcutaneous pen (Lantus Solostar U-100 Insulin) Allergies Allergy/AdvReac Type Severity Reaction Status Date / Time sumatriptan (From Imitrex) Allergy Verified 02/01/25 09:17 topiramate (From Topamax) Allergy Verified 02/01/25 09:17 cefaclor (From Ceclor) AdvReac Verified 02/01/25 09:17 ibuprofen AdvReac Verified 02/01/25 09:17 some insulins Allergy Uncoded 10/05/22 12:07 Exam Narrative: Exam Narrative: She is alert and appears mildly uncomfortable reporting ongoing abdominal pain. She gives her own history with good detail. Head is without trauma. Eyes normal. Sclerae nonicteric. Oropharynx: Edentulous. Dry mucous membranes. Small airway. Neck is supple without mass or adenopathy. Respirations are clear to auscultation without wheezing rales or rhonchi. Cardiovascular: S1, S2, regular rate and rhythm. Abdomen is soft. Diminished bowel sounds. She has mild diffuse tenderness and mild to moderate in the mid abdomen. No mass. No tenderness to percussion over her back. External genitalia normal. Extremities with intact pulses and sensation. No rash. She moves all 4 extremities well. Good capillary perfusion Const: Vital Signs, click to edit/add: Vital Signs - 24 hr 02/01/25 09:11 02/01/25 11:02 02/01/25 12:51 Temperature 97.7 F Pulse Rate [Pulse Oximeter] 96 90 Pulse Rate [Right Pulse Oximeter] Respiratory Rate 20 Blood Pressure [Le ft Forearm] 146/89 H 160/94 H 130/85 Blood Pressure [Ri ght Arm] Pulse Oximetry 96 95 Oxygen Delivery Me thod Room Air Room Air 02/01/25 14:10 Temperature 98.3 F Pulse Rate [Pulse Oximeter] Pulse Rate [Right Pulse Oximeter] 95 Respiratory Rate 16 Blood Pressure [Le ft Forearm] Blood Pressure [Ri ght Arm] 142/83 H Pulse Oximetry 98 Oxygen Delivery Me thod Room Air Documenting provider has reviewed patient's vital signs: yes Hospitalist - H&P: Result Labs Labs: Short CBC 02/01/25 Range/Units 09:42 WBC 11.98 H (4.50-11.00) K/uL Hgb 14.5 (12.0-16.0) gm/dL Hct 44.9 (33.0-51.0) % Plt Count 452 H (140-440) K/uL BMP 02/01/25 09:42 Sodium 134 L Potassium 4.0 Chloride 100 Carbon Dioxide 23 BUN 15 Creatinine 0.7 Glucose 137 H Calcium 9.1 Liver Function 02/01/25 Range/Units 09:42 Total Bilirubin 0.9 (0.1-1.5) mg/dL AST 26 (12-35) U/L ALT 23 (4-35) U/L Alkaline Phosphatase 94 (40-150) U/L Albumin 4.7 (3.3-5.0) g/dL Imaging CT scan - abdomen: Radiologist's impression: INDICATION: Nausea, diarrhea and diffuse abdominal pain TECHNIQUE: Axial images were obtained from the diaphragm to the pubic symphysis. Reformats were obtained in the coronal and sagittal plane. IV Contrast: 99 cc Isovue 370 Oral Contrast: None COMPARISON: Abdomen and pelvis CT 12/05/2022 FINDINGS: Lower chest: Unremarkable. Liver: Diffusely decreased density of the liver without focal intrahepatic lesion. Gallbladder and bile ducts: Status post cholecystectomy. Spleen: Unremarkable. Normal in size without mass. Pancreas: Unremarkable. No mass or inflammation. Adrenal glands: Indeterminate right adrenal lesion measuring 16 millimeters, similar to the 2022 exam. Kidneys: Unremarkable. No masses, stones, or hydronephrosis. Vasculature: Unremarkable. GI tract: Dilated loops of small bowel with decompressed distal small bowel. No pneumatosis or pneumoperitoneum. Colon decompressed. Pelvis: Unremarkable. Bones: Degenerative disc disease L5-S1. IMPRESSION: 1. Dilated small bowel with distal decompression consistent with a small-bowel obstruction. Underlying etiology is likely adhesions. 2. Mild hepatic steatosis. 3. Indeterminate right adrenal lesion although stable compared to the 2022 exam.
--- NOTE | 2025-02-01 15:55 | PC.NURSE ---
End of shift report: VS WNL. Denies N/V/SOB/ diarrhea at this time. Pain rated 4, located in her middle abdomen. Bowel sounds hypoactive throughout. AxO. SL in left AC. Ind in room.
[2025-02-01] MEDS: NICOTINE 21 MG PATCH 1 PATCH TRANSDERMA (16:19)
[2025-02-01] MEDS: LACTATED RINGERS 1000 ML 1,000 ML 500 ML IV (16:19)
[2025-02-01] MEDS: LACTATED RINGERS 1000 ML 1,000 ML 125 ML IV (18:46)
[2025-02-01] MEDS: MORPHINE 4 MG/ML INJ 2 MG IVP ×2 (19:46→21:51)
--- NOTE | 2025-02-01 19:52 | PC.NURSE ---
Nursing Care Hours: [id number] Pt this shift calm and cooperative, alert and oriented. VSS, no c/o pain, no N/V. Pt walking the halls. IV fluids infusing. BS hypoactive. Tolerating ice chips.
[2025-02-01] MEDS: ATORVASTATIN CALCIUM 10 MG TABLET PO (21:51)
[2025-02-01] MEDS: INSULIN GLARGINE,HUM.REC.ANLOG 100 UNIT/ML INSULN.PEN 30 UNIT SUBCUT (21:52)
[2025-02-02] MEDS: MORPHINE 4 MG/ML INJ 2 MG IVP (02:02)
[2025-02-02] MEDS: LACTATED RINGERS 1000 ML 1,000 ML 125 ML IV (02:03)
[2025-02-02] MEDS: ONDANSETRON 2 MG/ML inj 4 MG IVP (02:03)
[2025-02-02 03:00] VITALS: BP 119/75; PULSE 83; RESP 18; TEMP 36.9; O2SAT 96
--- NOTE | 2025-02-02 06:04 | PC.NURSE ---
End of shift report [id number]: Pleasant and cooperative with cares. Pain to abdomen well managed with current regimen. Abdomen tender to palpation, pain is etelvina umbilicus per report. Bowel sounds hypoactive in all quadrants. Nausea managed with zofran. Patient is drowsy and reports feeling tired throughout the shift, wakes to verbal stimuli. Patient reports that she had 2 loose bowel movements between [id number], states that she wakes as her bowels are releasing.
[2025-02-02 06:56] LABS: Potassium* 3.7 mmol/L (3.6-5.1); Sodium* 135 mmol/L (135-149)
[2025-02-02 06:57] LABS: Anion Gap 11 mEq/L (7-15); Blood Urea Nitrogen* 14 mg/dL (5-24); Calcium* 8.2 mg/dL (8.4-10.6); Carbon Dioxide* 22 mmol/L (20-32); Chloride* 102 mmol/L (96-114); Creatinine* 0.5 mg/dL (0.5-1.5); Est. Creatinine Clearance* 145.44; Estimated Glomerular Filt Rate 122 ml/min; Glucose* 72 mg/dL (60-115)
[2025-02-02 07:27] LABS: Basophils Absolute Auto 0.06 K/uL (0.00-0.30); Basophils Percent Auto 0.7 % (0.0-3.0); Eosinophils Absolute Auto 0.11 K/uL (0.00-0.50); Eosinophils Percent Auto 1.3 % (0.0-7.0); Hematocrit 41.7 % (33.0-51.0); Hemoglobin* 13.5 gm/dL (12.0-16.0); Immature Granulocytes Abs Auto 0.03 K/uL (0.00-0.30); Immature Granulocytes Pct Auto 0.3 %; Lymphocytes Percent Auto 16.4 % (20-44); Mean Corpuscular HGB Conc 32 gm/dL (32-36); Mean Corpuscular Hemoglobin 28 pg (26-34); Mean Corpuscular Volume 86 fL (80-100); Monocytes Percent Auto 7.8 % (0.0-11.0); Neutrophils Percent Auto 73.5 % (42.0-72.0); Platelet Count* 424 K/uL (140-440); RDW Coefficient of Variation % 14.7 % (11.5-15.5); Red Blood Count 4.85 m/uL (4.00-5.20); White Blood Count* 8.58 K/uL (4.50-11.00)
[2025-02-02 07:28] LABS: Slide Review Reflex No
--- NOTE | 2025-02-02 08:00 | P.GSPN_ITS ---
Subjective Subjective Date Seen: 02/02/25 Interval history: Patient with some abdominal pain this morning, better than yesterday. Denies any further nausea or vomiting. Had diarrhea and passing of gas multiple times this morning. No fevers. Feeling hungry this morning. Exam Narrative: Exam Narrative: Gen: alert and oriented, NAD Abd: soft, non tender and non distended. Const: Vital Signs, click to edit/add: Vital Signs - 24 hr 02/01/25 09:11 02/01/25 11:02 02/01/25 12:51 Temperature 97.7 F Pulse Rate [Pulse Oximeter] 96 90 Pulse Rate [Right Pulse Oximeter] Respiratory Rate 20 Blood Pressure [Le ft Forearm] 146/89 H 160/94 H 130/85 Blood Pressure [Ri ght Arm] Pulse Oximetry 96 95 [facility] Room Air 02/01/25 14:10 02/01/25 14:10 02/01/25 15:00 Temperature 98.3 F Pulse Rate [Pulse Oximeter] Pulse Rate [Right Pulse Oximeter] 95 95 Respiratory Rate 16 16 16 Blood Pressure [Le ft Forearm] Blood Pressure [Ri ght Arm] 142/83 H Pulse Oximetry 98 98 [facility] Room Air 02/01/25 16:16 02/01/25 19:00 02/01/25 23:00 Temperature 99.1 F 98.7 F Pulse Rate [Pulse Oximeter] Pulse Rate [Right Pulse Oximeter] 91 93 95 Respiratory Rate 20 18 16 Blood Pressure [Le ft Forearm] Blood Pressure [Ri ght Arm] 133/81 111/71 Pulse Oximetry 96 96 [facility]xygen [facility] Room Air 02/01/25 23:00 02/02/25 03:00 Temperature 98.7 F 98.5 F Pulse Rate [Pulse Oximeter] Pulse Rate [Right Pulse Oximeter] 95 83 Respiratory Rate 16 18 Blood Pressure [Le ft Forearm] Blood Pressure [Ri ght Arm] 131/82 119/75 Pulse Oximetry 96 96 Oxygen [facility] Room Air Labs/Imaging Labs Labs: No leukocytosis Progress Note:A&P Assessment and plan (1) Small bowel obstruction: Status: Acute Assessment and Plan: VSS overnight. Multiple episodes of diarrhea this morning. Benign abdominal exam. Symptoms are more consistent with gastroenteritis. No concern for bowel obstruction at this time. Recommend clear liquids this morning and advance diet as tolerated. All other cares per hospitalist. General Surgery to sign off.
[2025-02-02 08:03] VITALS: BP 129/85; PULSE 74; RESP 16; TEMP 36.6; O2SAT 97
--- NOTE | 2025-02-02 09:01 | P.DS_ITS ---
DS: Providers Provider Date Seen: 02/02/25 Date of admission: 02/01/25 15:44 Primary care physician: Shena Aldana MD Admitting Clinician: Alireza Capps MD Consults: 02/01/25 15:44 Consult to Physician [CONS] Urgent Comment: Consulting Provider: Aysha Casey Has provider been notified: Yes Attending Physician on discharge: Suri Zaragoza MD [facility] Hospitalist Date of Discharge: 02/02/25 DS: Diagnosis Discharge Diagnosis (1) Small bowel obstruction: Status: Acute Problem details: -resolved with conservative management -appreciate gen surg eval (2) H/O exploratory laparotomy: Status: Acute Problem details: Incidental appendectomy, endometriosis (3) Tobacco use disorder: Status: Acute (4) GERD (gastroesophageal reflux disease): Status: Acute (5) Diabetes: Status: Acute Problem details: Hemoglobin A1c was 9.2 on 11/24/2024 DS: Summary Hospital Course Hospital Course: FINAL DIAGNOSIS/FOLLOW UP ISSUES: 1. Partial small bowel versus gastroenteritis: Patient had evidence clinically and radiographically of a small-bowel obstruction. However her symptoms quickly resolved once admitted. Her cares did not require an NG tube. We appreciate the insight and consultation with general surgery. BRIEF HOSPITAL COURSE: Patient was admitted for overnight. Synopsis of acute inpatient issues are outlined above. Chronic medical conditions with notable findings outlined above. DISCHARGE MEDICATIONS: See Reconciled list - SIGNIFICANT CHANGES: No changes Specific instructions to the patient and follow-up are outlined below. REVIEW OF SYSTEMS No new chest pain or dyspnea Pain controlled No voiding difficulties Tolerating diet challenge PHYSICAL EXAM: CONSTITUTIONAL: Conversive, good historian. A/O. Knows setting and context. GENERAL: Well-developed and above ideal body weight, in no respiratory distress. VITAL SIGNS: see record. HEENT: Sclerae are anicteric. No petechiae. CARDIAC: rhythm is regular. There is no S3 or rub. No harsh murmurs. Extremities show trace edema with symmetrical pulses. PULM: good air entry with no wheeze. ABD: Moderately obese, soft. Good bowel sounds. NEURO: Speech is fluent. A brief neurologic exam is negative. SKIN: No rashes, petechiae, concerning changes PSYCHIATRIC: Euthymic. DISPOSITION: Home Time spent on discharge 37 minutes. Status at Discharge Functional status at discharge: independent ambulation Overall status at discharge: patient is progressing back to baseline Time Spent with Patient Time attestation: Total time spent providing and/or coordinating discharge services: Time spent: Greater than 30 minutes Exam Const: Vital Signs, click to edit/add: Vital Signs - 24 hr 02/01/25 09:11 02/01/25 11:02 02/01/25 12:51 Temperature 97.7 F Pulse Rate [Pulse Oximeter] 96 90 Pulse Rate [Right Pulse Oximeter] Respiratory Rate 20 Blood Pressure [Le ft Forearm] 146/89 H 160/94 H 130/85 Blood Pressure [Ri ght Arm] Pulse Oximetry 96 95 Oxygen Delivery Me thod Room Air Room Air 02/01/25 14:10 02/01/25 14:10 02/01/25 15:00 Temperature 98.3 F Pulse Rate [Pulse Oximeter] Pulse Rate [Right Pulse Oximeter] 95 95 Respiratory Rate 16 16 16 Blood Pressure [Le ft Forearm] Blood Pressure [Ri ght Arm] 142/83 H Pulse Oximetry 98 98 Oxygen Delivery Me thod Room Air Room Air 02/01/25 16:16 02/01/25 19:00 02/01/25 23:00 Temperature 99.1 F 98.7 F Pulse Rate [Pulse Oximeter] Pulse Rate [Right Pulse Oximeter] 91 93 95 Respiratory Rate 20 18 16 Blood Pressure [Le ft Forearm] Blood Pressure [Ri ght Arm] 133/81 111/71 Pulse Oximetry 96 96 Oxygen Delivery Me thod Room Air Room Air 02/01/25 23:00 02/02/25 03:00 02/02/25 08:03 Temperature 98.7 F 98.5 F 97.9 F Pulse Rate [Pulse Oximeter] Pulse Rate [Right Pulse Oximeter] 95 83 74 Respiratory Rate 16 18 16 Blood Pressure [Le ft Forearm] Blood Pressure [Ri ght Arm] 131/82 119/75 129/85 Pulse Oximetry 96 96 97 Oxygen Delivery Me thod Room Air Room Air Room Air DS: Data Data Completed and Pending Labs on day of discharge: Labs from last 24 hours 02/02/25 02/01/25 05:52 09:42 WBC 8.58 11.98 H RBC 4.85 5.30 H Hgb 13.5 14.5 Hct 41.7 44.9 MCV 86 85 MCH 28 27 MCHC 32 32 RDW Coeff of Sammi 14.7 14.6 Plt Count 424 452 H Neut % (Auto) 73.5 H 81.7 H Lymph % (Auto) 16.4 L 11.3 L Shannon % (Auto) 7.8 5.5 Eos % (Auto) 1.3 0.8 Baso % (Auto) 0.7 0.3 Neut # (Auto) 6.30 9.80 H Lymph # (Auto) 1.40 1.40 Shannon # (Auto) 0.70 0.70 Eos # (Auto) 0.11 0.10 Baso # (Auto) 0.06 0.00 Abs Immat Gran (auto) 0.03 0.00 Imm/Tot Granulo (auto) 0.3 0.4 Sodium 135 134 L Potassium 3.7 4.0 Chloride 102 100 Carbon Dioxide 22 23 Anion Gap 11 11 BUN 14 15 Creatinine 0.5 0.7 Estimated Creat Clear 145.44 103.89 Estimated GFR 122 112 Glucose 72 137 H Lactate 1.0 Calcium 8.2 L 9.1 Total Bilirubin 0.9 AST 26 ALT 23 Alkaline Phosphatase 94 Total Protein 8.1 Albumin 4.7 SARS-CoV-2 (PCR) Negative SARS-CoV-2 Influenza Type A (PCR) Negative PCR FLU A Influenza Type B (PCR) Negative PCR FLU B RSV (PCR) Negative PCR RSV Discharge Plan Discharge Disposition: Home, Self-Care Date of Admission: 02/01/25 15:44 Consulting Providers: Aysha Casey Primary Care Provider: Shena Aldana Condition: Stable Anticipated Discharge Date/Time: 02/02/25 12:00 Discharge Medications: Continued atorvastatin 10 mg tablet 10 mg PO HS escitalopram oxalate 10 mg tablet 10 mg PO DAILY insulin glargine [Lantus Solostar U-100 Insulin] 100 unit/mL (3 mL) insulin pen 60 unit subcut HS lisinopril 10 mg tablet 10 mg PO DAILY Patient Comments: TAKE ONE TABLET BY MOUTH DAILY ergocalciferol (vitamin D2) 1,250 mcg (50,000 unit) capsule 1,250 mcg PO QWEEK Patient Comments: TAKE ONE CAPSULE BY MOUTH ONCE WEEKLY verapamil 240 mg capsule,ext rel. pellets 24 hr 240 mg PO QAM Patient Comments: TAKE ONE CAPSULE BY MOUTH EVERY MORNING bupropion HCl [Wellbutrin XL] 150 mg tablet extended release 24 hr 150 mg PO DAILY Patient Comments: Take 1 tablet by mouth once a day - add to 300mg dose for 450mg total Jardiance 25 mg tablet 25 mg PO DAILY Patient Comments: TAKE ONE TABLET BY MOUTH ONE TIME DAILY metformin 500 mg tablet extended release 24 hr 2,000 mg PO DAILY nystatin 100,000 unit/gram cream 1 applic topical BID Discharge Orders: Discharge Order (Routine); Ordered 02/02/25 Ordered By: Suri Zaragoza Patient Education: Gastroenteritis (DC) Activity Level: Activity as Tolerated Discharge Diet: Low Fiber Follow Up Appointments: Shena Aldana MD [Primary Care Provider] - (as needed or as previously directed. no specific f/u needed for this hospitalization.) Forms: Squee Info Instructions
== END 2025-02-02 11:29 | disposition home or self-care (01) | DRG 247 ==
LOC: ED 12:33 → MEDSURG 13:58
PROVIDERS: Admitting Provider Family Medicine; Emergency Provider Student in an Organized Health Care Education/Training Program; PCP Family Medicine; Visit Provider Internal Medicine
DX: K56.609 Unspecified intestinal obstruction, unspecified as to partial versus complete obstruction (principal); I10 Essential (primary) hypertension; E11.9 Type 2 diabetes mellitus without complications; F17.200 Nicotine dependence, unspecified, uncomplicated; E27.9 Disorder of adrenal gland, unspecified; K76.0 Fatty (change of) liver, not elsewhere classified; K21.9 Gastro-esophageal reflux disease without esophagitis; F41.9 Anxiety disorder, unspecified; Z98.890 Other specified postprocedural states
CPT/HCPCS: 36415; 74177; 80048; 80053; 82962; 83605; 85025; 87631; 99284; 99285; A9270; J1815; J2270; J2405; J2765; J7120; Q9967; S4990

== ENCOUNTER 2025-03-23 09:27 | Emergency (ER) | payer BC, SELFPAY ==
--- OUTSIDE RECORDS SUMMARY | 2025-03-23 09:30 | XMS_ITS | Clinical Summary ---
Author Organization [facility] Address [address] [place] [address] Care Team Providers Care Grinding Wheel Inspector Name Role Phone Rabia Alarcon [employer] NECK WHIPPER Unavailable Unavailable JovanShena penaloza MD Primary Care Provider Allergies Active Allergy [...] albuterol HFA (PRO-AIR; VENTOLIN; PROVENTIL) 90 mcg/actuation inhalerIndication s:Mild intermittent asthma without complication (HC) Inhale 2 Puffs by mouth 4 times daily if needed for Shortness Of Breath or Wheezing. 8.5 g 11 024 Active continuous glucose monitor READER (Carsquare Delvis 14 Day Jermyn)Indication s:Diabetes mellitus without complication (HC) As directed. 1 Each 024 Active atorvastatin (LIPITOR) 10 mg tabletIndications :Hyperlipidemia, unspecified hyperlipidemia type Take 1 Tablet (10 mg) by mouth at bedtime. 90 Tablet 3 Active FreeStyle Delvis 2 ReaderIndications :Diabetes mellitus without complication (HC) To be used to read blood sugars per medical technologist clinical's directions. 1 Each 024 Active Insulin [place], Disposable, (UltiCare Pen Needle) 32 gauge x 5/32Indications: Insulin dependent type 2 diabetes mellitus (HC) USE DIRECTED. ONCE WITH DINNER WITH LANTUS INJECTION 200 Each 3 024 Active nystatin (MYCOSTATIN) 100,000 unit/gram topical creamIndications: Candidal intertrigo Apply topically to affected area(s) two times daily. Apply thin layer to rash 30 g 11 024 Active continuous glucose monitor SENSOR KIT (FreeStyle Delvis 2 Sensor)Indication s:Diabetes mellitus without complication (HC) To be used to read blood sugars per medical technologist clinical's directions. 6 Each 3 024 Active ergocalciferol (,vitamin D2,) 50,000 unit capsuleIndication s:Vitamin D deficiency TAKE 1 CAPSULE (50,000 UNITS) BY MOUTH ONCE WEEKLY. 12 Capsule 024 Active blood-glucose meterIndications: Type 2 diabetes mellitus with other specified complication, with long-term current use of insulin (HC) Dispense meter covered by pts insurance. Test 3 times/day 1 Each 025 Active blood sugar diagnostic (Blood Glucose Test) stripIndications: Type 2 diabetes mellitus with other specified complication, unspecified whether intermediate insulin use (HC) Test 3 times per day. 100 Each 025 Active lancetsIndication s:Type 2 diabetes mellitus with other specified complication, with long-term current use of insulin (HC) As directed. Test 3 times per day. 100 Each 12 025 Active lisinopriL 10 mg tabletIndications :HTN (hypertension) TAKE 1 TABLET (10 MG) BY MOUTH ONCE DAILY. 90 Tablet 2 025 Active HYDROcodone-aceta minophen (5-325 mg/tablet)Indicat ions:Lumbar spondylosis One po tid prn for post RF pain Max acetaminophen dose: 4000 mg in 24 hrs. 20 Tablet Active tirzepatide 2.5 mg/0.5 mL penIndications:Ty pe 2 diabetes mellitus with hyperglycemia, with long-term current use of insulin (HC) Inject 2.5 mg subcutaneous once weekly. 6 mL Active escitalopram oxalate 10 mg tabletIndications :Generalized anxiety disorder Take 1 Tablet (10 mg) by mouth once daily in the morning. 90 Tablet 3 Active buPROPion 300 mg Extended-Release tabletIndications :Generalized anxiety disorder,Mild episode of recurrent major depressive disorder Take 1 Tablet (300 mg) by mouth once daily. 90 Tablet 3 Active Jardiance 25 mg tabletIndications :Type 2 diabetes mellitus with hyperglycemia, with long-term current use of insulin (HC) Take 1 Tablet (25 mg) by mouth once daily. 90 Tablet 3 Active Lantus Solostar U-100 Insulin 100 unit/mL (3 mL) penIndications:Ty pe 2 diabetes mellitus with hyperglycemia, with long-term current use of insulin (HC) Inject 60 units subcutaneous before bedtime. Product desired: LANTUS SOLOSTAR 30 Each 3 Active verapamiL 240 mg Controlled-Releas e capsuleIndication s:HTN (hypertension),Ot her migraine without status migrainosus, not intractable Take 1 Capsule (240 mg) by mouth once daily in the morning. 90 Capsule 3 Active buPROPion (WELLBUTRIN XL) 300 mg Extended-Release tabletIndications :Generalized anxiety disorder,Mild episode of recurrent major depressive disorder Take 1 Tablet (300 mg) by mouth once daily. 90 Tablet 3 024 2024 Discontinued(R eorder (E-cancel not sent)) Jardiance 25 mg tabletIndications :Type 2 diabetes mellitus with hyperglycemia, without long-term current use of insulin (HC) Take 1 Tablet (25 mg) by mouth once daily. 90 Tablet 3 024 2024 Discontinued lisinopriL (PRINIVIL; ZESTRIL) 10 mg tabletIndications :HTN (hypertension) Take 1 Tablet (10 mg) by mouth once daily. 90 Tablet 3 024 2024 Discontinued metFORMIN (GLUCOPHAGE XR) 500 mg Extended-Release tabletIndications :Diabetes mellitus without complication (HC) Take 4 Tablets (2,000 mg) by mouth once daily. 360 Tablet 3 024 2024 Discontinued(* Med complete/Regim en complete/Level of care change) verapamiL (VERELAN) 240 mg Controlled-Releas e capsuleIndication s:HTN (hypertension),Ot her migraine without status migrainosus, not intractable Take 1 Capsule (240 mg) by mouth every morning. 90 Capsule 3 024 2024 Discontinued(R eorder (E-cancel not sent)) Lantus Solostar U-100 Insulin 100 unit/mL (3 mL) penIndications:Ty pe 2 diabetes mellitus with hyperglycemia, without long-term current use of insulin (HC) Inject 60 units subcutaneous before bedtime. Product desired: LANTUS SOLOSTAR 30 Each 3 024 2024 Discontinued(R eorder (E-cancel not sent)) escitalopram oxalate (LEXAPRO) 10 mg tabletIndications :Generalized anxiety disorder TAKE 1/2 TABLET BY MOUTH FOR 10 DAYS, THEREAFTER TAKE 1 TABLET DAILY 90 Tablet 024 2024 Discontinued(R eorder (E-cancel not sent)) Jardiance 25 mg tabletIndications :Type 2 diabetes mellitus with hyperglycemia, without long-term current use of insulin (HC) TAKE 1 TABLET (25 MG) BY MOUTH ONCE DAILY. 30 Tablet 025 2024 Discontinued(R eorder (E-cancel not sent)) onabotulinumtoxin A (Botox) 100 unit solrIndications:H eadache disorder Inject 200 units intramuscular one time for 1 dose. 2 Each 025 2024 Hospital, Clinic, or Other Facility Administered Medication Ordered Dose Route Frequency Start Date End Date Status midazolam (PF) (VERSED) injection 0.5-6 mgIndications:Lumbar spondylosis 0.5 - 6 mg IV EACH TIME PRN 03/07/2025 03/07/2025 Ended fentaNYL (PF) (SUBLIMAZE) 50 mcg/mL injection 25-400 mcgIndications:Lumbar spondylosis 25 - 400 mcg IV EACH TIME PRN 03/07/2025 03/07/2025 Ended Active Problems Problem Noted Date Diagnosed Date Cervical dysplasia 01/21/2024 Type 2 diabetes mellitus wit h other specified complication, unspecified whether intermediate insulin use 11/24/2023 Adrenal nodule 01/20/2023 Type [...] PHYSICIAN: Dr. Carolina Gage -Dr. Clemens = hip hop dancer (last saw 05/27/14) MEDS: Januvia Pertinent/Abnormal LABS: [...] Plan Documents (Health Care Directive, POLST): No, Jigmaker to review with patient . Patient has identified Specific Treatment Preferences: No Specific limits to treatment preferences NOT identified: ASSUME FULL TREATMENT. Pilar Mendosa RN RN [facility] [phone] Recurrent herpes labialis 08/06/2011 Unspecified episodic mood disorder 03/29/2011 Overview (08/04/2012): Probable MDD, monitoring Carpal tunnel syndrome 11/12/2010 Fatty liver 09/17/2010 Scheuermann's disease 04/16/2010 Hyperlipidemia LDL goal < 100 01/18/2010 DUB (dysfunctional uterine bleeding) 02/06/2009 PCO (polycystic ovaries) 02/06/2009 Atypical squamous cells toby ot exclude high grade squamous intraepithelial lesion on cytologic smear of cervix (ASC-H) 10/05/2007 Overview (12/26/2023): 09/2007 ASCH 11/2007 [place]: KAREN 1, Pap: NIL/HPV positive 12/2008 [place]: Suspicious for HPV. Pap: LSIL/HPV positive 08/2009 NIL 07/2010 NIL 08/2012 NIL 07/2013 ASCUS/HPV positive 08/2013 [place]: KAREN 1 03/2015 NIL/HPV negative 11/2016 NIL/HPV positive 11/2016 [place]: suggestive of KAREN 1 01/2018 ASCUS/HPV+ 06/2018 NIL 06/2018 [place]: suggestive of HPV 07/2021 NIL/HPV 16+, HPV [...] substance agreement signed 11/21/2017 04/09/2019 Overview (04/13/2018): [facility] (11/19/17) 90 day reminder signed. Iris Fu CMA...........04/13/2018 8:42 AM Medical Home 05/27/2011 01/29/2012 Medical Home 03/22/2011 05/20/2011 Medical Home 01/09/2011 05/20/2011 Overview (01/09/2011): [facility]aker Dori Duval RN [phone] Carpal tunnel syndrome 09/29/201002/16 Other specified episodic [...] Encounters Date Type Department Care Team Description 03/17/2025 Telephone [facility] [address] [place] [address] Shena Aldana MD Prior Authorization (tirzepatide 2.5 mg/0.5 mL pen Approved 02/08/25-03/17/26) 03/16/2025 10:30 AM CDT Office Visit [facility] [address] [place] [address] Shena Aldana MD Diabetes (Also weakness in hands./Currently not taking any medications) 03/16/2025 Travel 03/12/2025 Travel 03/07/2025 11:00 AM CDT Procedure Only [facility] [address] [place] [address] Floresita Fair MD Procedure (Bilateral Lumbar RFA with sedat... 03/07/2025 10:15 AM CDT - 03/07/2025 11:59 PM CDT Hospital Encounter [facility] [address] [place] [address] Floresita Fair MD 03/06/2025 Travel 02/21/2025 Refill [facility] [address] [place] [address] Shena Aldana MD Refill Request (Jardiance, Lisinopril) 02/11/2025 Telephone [facility] [address] [place] [address] Shena Aldana MD Referral 02/03/2025 11:55 AM CDT Office Visit [facility] [address] [place] [address] Bee Jamison PA Mouth/Lip Problem 02/03/2025 Travel 02/01/2025 Orders Only [facility] Scanner 1 scan: (1-Ord) [facility], CT ABD PELVIS W CON, 02/01/2025 01/24/2025 Orders Only [facility] Scanner 1 scan: (1-Ord) [facility], 01/24/2025 01/20/2025 Telephone [facility] [address] [place] [address] Shena Aldana MD Referral (Eye exam) from Last 3 Months Immunizations Immunization Administration Dates Next Due COVID-19 VACCINE SPIKEVAX (M ODERNA 50MCG/0.5ML) 12YO+ PFS 12/15/2024,11/24/2023 COVID-19 vaccine (Milanoo.[employer]-Bio NTech 30mcg/0.3mL) 12YO+ BIVALENT PF, MDV 10/16/2022 COVID-19 vaccine (Pfizer-Bio NTech 30mcg/0.3mL) PF, MDV 07/18/2021,06/27/2021 DTP 04/22/1985,01/22/1985,1984 Hepatitis B (Adult) 12/25/2000,06/06/2000,1999 INFLUENZA, IIV3 PF (AGE >= 6 MO) 12/15/2024 Influenza A (H1N1), Inactiva adin (Age >=3 Years) 11/15/2009 Influenza, IIV3 (Age >=3 years) 09/08/20 13,08/27/2012,07/26/2010,2009,08/19/2007,09/12/2005 Influenza, IIV4 11/24/2023,,08/12/2016,2013 MMR 02/01/1986 Oral Polio Vaccine 01/22/1985,1984 Pneumococcal [...] on file Legal Sex Female 5:46 AM KNOCKDOWN MAN Gender Identity Not on file Sexual Orientation Not on file 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 Not on file Not on file N ot on file [id number] Not on file Not on file Not on file Obstetrics History Para Term AB IAB SAB Ectopic Multiple Livin g Live Births 0 0 0 0 0 0 0 0 0 Last Filed Vital Signs Vital Sign Reading Time Taken Comments Blood Pressure 141/91 03/16/2025 10:38 AM CDT Pulse 95 03/16/2025 10:38 AM CDT Temperature 36.4 C (97.6 F) 03/07/2025 10:20 AM CDT Respiratory Rate 18 03/07/2025 10:2 0 AM CDT Oxygen Saturation 99% 03/16/2025 10: 38 AM CDT Inhaled Oxygen Concentration - - Weight 108.2 kg (238 lb 9.6 oz) 025 10:38 AM CDT Height 168.9 cm (5' 6.5) 07/21/2024 11 :23 AM CDT Body Mass Index 37.93 07/21/2024 11:23 AM CDT Plan of Treatment Upcoming Encounters Date Type Department Care Team (Late st Contact Info) Description 06/20/2025 10:20 AM CDT Office Visit [facility] [address] [place] [address] Shena Aldana MD [address] [place] [address] Health Maintenance Due Date Last Done Comments Depression screening for age 12+ 1996 Pap test for age 21-65 06/03/2025 4 (Verified in Care Everywhere or Patient Record), [...] Procedure Name Priority Date/Time Associated Diagnosis Comments HEMOGLOBIN A1C MONITORING (POCT) Routine 03/16/2025 10:29 AM CDT Type 2 diabetes mellitus with hyperglycemia, with long-term current use of insulin (HC) [facility] IMAGE STORAGE Routine 03/07/2025 10:40 AM CDT SCAN-CT INTERPRETATION 12:00 AM CDT SCAN-EYE EXAM 01/24/2025 12:00 AM CDT HPV HIGH RISK Routine 12/18/2023 10:10 AM KNOCKDOWN MAN Screening for cervical cancer LC HCV ANTIBODY RFX TO QUANT PCR Routine 01/20/2023 11:40 AM CDT Need for hepatitis C screening test ANTI HIV 1/2 Routine 08/28/2009 12:04 PM CDT Exposure to Sexually Transmitted Disease (STD) from Last 3 Months or Most Recently Relevant to Health Maintenance Results * (ABNORMAL) POCT Hemoglobin A1C Monitoring (03/16/2025 10:29 AM CDT) POC HEMOGLOBIN A1C 8.2(H) <6.0 % OF TOTAL HGB [facility] Comment: Any point of care results exhibiting inconsistency with the patient's clinical status should be repeated using a different testing method. Blood BLOOD SPECIMEN / Unknown 03/16/2025 10:29 AM CDT 03/16/2025 10:29 AM CDT us Shena Aldana MD CHEMISTRY Final R esult Performing Organization Address City/State/[facility] Co de Phone Number [facility] [address] [place] [address], [facility] [address] [place] [address] * SCAN-CT INTERPRETATION (02/01/2025 12:00 AM CDT) Anatomical Region Laterality Modality Other us Scanner OTHER Final Result * SCAN-EYE EXAM (01/24/2025 12:00 AM CDT) us Scanner OTHER Final Result * (ABNORMAL) HPV HIGH RISK (12/18/2023 10:10 AM KNOCKDOWN MAN) TYPE 16 Positive(A) Negative 12/22/2023 5:35 PM KNOCKDOWN MAN [facility] TYPE 18 Negative Negative 12/22/2023 5:35 PM KNOCKDOWN MAN [facility] OTHER HIGH RISK TYPES Negative Negative 12/22/2023 5:35 PM KNOCKDOWN MAN [facility] Other (Cervical) Non-Blood / Unknown 12/18/2023 10:10 AM KNOCKDOWN MAN 12/18/2023 4:46 PM KNOCKDOWN MAN Narrative [facility] - 12/22/2023 5:35 PM KNOCKDOWN MAN Specimen is positive for HPV type 16 DNA. HPV types 18, 31, 33, 35, 39, 45, 51, 52, 56, 58, 59, 66 and 68 DNA were undetectable or below the pre-set threshold Methodology: Michael Chente 4800 HPV Test Shena Aldana MD MICROBIOLOGY Final R esult [facility] [address] [place] [address], [place] * LC HCV ANTIBODY RFX TO QUANT PCR (01/20/2023 11:40 AM CDT) [facility] HCV Ab Non Reactive Non Reactive 01/22/2023 9:06 PM CDT [facility] ([facility]) Blood BLOOD SPECIMEN / Unknown Venipuncture / Unknown 01/20/2023 11:40 AM CDT 01/20/2023 11:43 AM CDT [facility] FOR ESOTERIC TEST[facility] ([facility]) - 01/22/2023 9:06 PM CDT Performed at: [address] [place] [id number] Clipper Automatic: Rah Sellers MD, Phone: [phone] Shena Aldana MD LABORATORY Final R esult [facility] ([facility]) [address] [place] [address], [place] * ANTI HIV 1/2 (08/28/2009 12:04 PM CDT) Pathologist [facility] ANTI HIV 1/2 Non-reacti ve [facility] Blood specimen (specimen) BLOOD SPECIMEN / Unknown 08/28/2009 12:04 PM CDT 08/28/2009 12:01 PM CDT us Clinton Bui MD SEND OUTS Final R esult [facility] INTERNAL ZIP [id number] [address] from Last 3 Months or Most Recently Relevant to Health Maintenance Insurance MEDICAID [facility] [employer] VEHICLE INS [facility] [employer] WORKERS COMP [facility] [employer] [id number] [place] [id number] Advance Directives * Full Code (Latest Code [...] 3:05 PM 08/10/2008 5:26 PM Care Teams Grinding Wheel Inspector Relationship Specialty Start Date End Date Shena Aldana MD [address] [place] [address] PCP - General Family Practice 05/02/20 Rabia Alarcon NP Psychiatry Nurse Practitioner 02/24/17
[2025-03-23 09:33] VITALS: BP 168/94; PULSE 86; RESP 18; TEMP 36.3; O2SAT 98; BMI 36.0
--- NOTE | 2025-03-23 10:21 | ED.GENADULT ---
HPI - General Adult General Chief complaint: Shoulder Injury/Pain Stated complaint: left shoulder and arm hang down Time Seen by Provider: 03/23/25 10:11 History of Present Illness HPI narrative: This 39-year-old female comes in because of pain radiating down her left arm from her shoulder into her hand. She does not report any particular injury event or strenuous activity that triggered these symptoms. These symptoms have been present for about a week. She reports pain primarily in her arm radiating down into the little finger of her hand. She does have some mild neck discomfort. Related Data Home Medications ?Medication ?Instructions ?Recorded ?Confirmed bupropion HCl 150 mg 24 hr tablet, 150 mg PO DAILY 01/10/23 03/23/25 extended release (Wellbutrin XL) empagliflozin 25 mg tablet 25 mg PO DAILY 01/10/23 03/23/25 (Jardiance) ergocalciferol (vitamin D2) 1,250 1,250 mcg PO QWEEK 01/10/23 03/23/25 mcg (50,000 unit) capsule lisinopril 10 mg tablet 10 mg PO DAILY 01/10/23 03/23/25 verapamil 240 mg 24 hr 240 mg PO QAM 01/10/23 03/23/25 capsule,extended release atorvastatin 10 mg tablet 10 mg PO HS 07/16/24 03/23/25 escitalopram oxalate 10 mg tablet 10 mg PO DAILY 07/16/24 03/23/25 insulin glargine 100 unit/mL (3 60 unit subcut HS 07/16/24 03/23/25 mL) subcutaneous pen (Lantus Solostar U-100 Insulin) nystatin 100,000 unit/gram topical 1 applic topical BID 02/01/25 03/23/25 cream Previous Rx's ?Medication ?Instructions ?Recorded cyclobenzaprine 10 mg tablet 10 mg PO TID #15 tabs 03/23/25 ketorolac 10 mg tablet 10 mg PO TID 5 days #15 tabs 03/23/25 methylprednisolone 4 mg tablets in See Rx Instructions PO .COMPLEX 03/23/25 a dose pack (Medrol (Rufus)) #21 ea Allergies Allergy/AdvReac Type Severity Reaction Status Date / Time sumatriptan (From Imitrex) Allergy Verified 03/23/25 09:38 topiramate (From Topamax) Allergy Verified 03/23/25 09:38 cefaclor (From Ceclor) AdvReac Verified 03/23/25 09:38 ibuprofen AdvReac Verified 03/23/25 09:38 some insulins Allergy Uncoded 10/05/22 12:07 Review of Systems Status of ROS: Reports: 10 or more systems reviewed and unremarkable except as noted in History and below Narrative: Constitutional: No fevers, no weight gain or loss. Eyes: No discharge. No vision changes. HENT: No congestion, no sore throat, no ear pain. Cardiovascular: No chest pain, no palpitations. Respiratory: No shortness of breath, no wheezes, no cough. Gastrointestinal: No abdominal pain, no vomiting, no diarrhea. Genitourinary: No dysuria, no hematuria. Musculoskeletal: Normal range of motion. Left arm pain as described above. Skin: No rashes, no pruritis. Neurological: No dizziness, weakness, sensory change, speech change. Endo/Heme/Allergies: No bruising or bleeding. No polydipsia. Pysch: no suicidality, no anxiety, no insomnia. All other systems reviewed and are negative. [facility] Medical History (Updated 03/23/25 @ 10:25 by Deandre Madison MD) Tobacco use disorder ?F17.200 - Nicotine dependence, unspecified, uncomplicated (ICD-10) Adrenal nodule ?E27.9 - Disorder of adrenal gland, unspecified (ICD-10) Generalized anxiety disorder ?F41.1 - Generalized anxiety disorder (ICD-10) Depression ?F32.A - Depression, unspecified (ICD-10) Degenerative joint disease (DJD) of lumbar spine ?M47.816 - Spondylosis without myelopathy or radiculopathy, lumbar region (ICD-10) Hyperlipidemia ?E78.5 - Hyperlipidemia, unspecified (ICD-10) Opioid use disorder ?F11.90 - Opioid use, unspecified, uncomplicated (ICD-10) Borderline personality disorder ?F60.3 - Borderline personality disorder (ICD-10) Migraine ?G43.909 - Migraine, unspecified, not intractable, without status migrainosus (ICD-10) Hepatic steatosis ?K76.0 - Fatty (change of) liver, not elsewhere classified (ICD-10) Polycystic ovary disease ?E28.2 - Polycystic ovarian syndrome (ICD-10) Obesity ?E66.9 - Obesity, unspecified (ICD-10) Endometriosis ?N80.9 - Endometriosis, unspecified (ICD-10) GERD (gastroesophageal reflux disease) ?K21.9 - Gastro-esophageal reflux disease without esophagitis (ICD-10) Anxiety ?F41.9 - Anxiety disorder, unspecified (ICD-10) Hypertension ?I10 - Essential (primary) hypertension (ICD-10) Diabetes ?E11.9 - Type 2 diabetes mellitus without complications (ICD-10) Cardiomyopathy ?I42.9 - Cardiomyopathy, unspecified (ICD-10) Surgical History (Updated 02/10/25 @ 00:01 by Background Daemon) History of colposcopy ?Z98.890 - Other specified postprocedural states (ICD-10) History of carpal tunnel release ?Z98.890 - Other specified postprocedural states (ICD-10) H/O exploratory laparotomy ?Z98.890 - Other specified postprocedural states (ICD-10) H/O laparoscopy ?Z98.890 - Other specified postprocedural states (ICD-10) Status post cholecystectomy ?Z90.49 - Acquired absence of other specified parts of digestive tract (ICD-10) Family History (Updated 02/01/25 @ 14:56 by Adarsh Pappas MD) Mother Heart disease Depression Brother Depression Father Depression Social History (Updated 02/01/25 @ 14:57 by Adarsh Pappas MD) Narrative: She lives with her in [place]. She works at [employer]. She smokes a pack cigarettes a day. She does not drink alcohol. No recreational drug use. Code status is full. or mother would be healthcare power of real estate associate attorney. What is your current living situation?: I presently have a place to live Problems where you live: no known problems Problems where you live details: n/a In the past 12 months, utilities in danger of being shut off: no In past 12 months, lack of transportation kept you from medical appts, meetings, work, or getting things needed for daily living: no In the past 12 mos, have been you worried that your food would run out before you had money to buy more?: never true In the past 12 mos, the food you bought just didn't last and you didn't have money to buy more?: never true Highest level of school completed/degree received: some college, no degree Smoking Status: Current every day smoker What tobacco products do you use: cigarettes Smoking packs per day: 1 Smoking cigarettes per day: 20.0 Do you use any of these nicotine containing products: Vaping Products Second hand tobacco smoke exposure: No How often do you have a drink containing alcohol: never How often do you have six or more drinks on one occasion: Never AUDIT-C Alcohol total score: 0 Non-prescribed substance use: former substance user Non-prescribed substance use details: hx of meth use Caffeine: Yes How often does anyone, including family, friends and others, physically hurt you: never How often does anyone, including family, friends and others, insult or talk down to you: never How often does anyone, including family, friends and others, threaten you with harm: never How often does anyone, including family, friends and others, scream or curse at you: never service: No Exam Narrative: Exam Narrative: Constitutional: Well-developed, well-nourished, no acute distress. HEENT: Normocephalic, atraumatic. Neck: Normal range of motion. Nontender. Supple. Heart: Regular. No murmurs. Normal rate. Intact distal pulses. Lungs: Clear to auscultation. No chest discomfort. No wheezes, rhonchi, or rales. Abdomen: Normal bowel sounds. Nontender. No rebound tenderness. Genitalia: Deferred. Back: No midline tenderness. Normal range of motion. Extremities: Normal range of motion. No injury. Pain radiating from the shoulder primarily into the left hand specifically in the ulnar nerve distribution. Spurling's test is positive. Skin: Intact. No rash. Warm. No erythema or pallor. Neurologic: No altered sensation. No weakness. Alert and oriented. Psychiatric: No suicidality. No anxiety or depression. No insomnia. Nursing notes and vitals signs are reviewed. Const: Vital Signs, click to edit/add: Vital Signs - 24 hr 03/23/25 09:33 Temperature 97.4 F L Pulse Rate [Right Pulse Oximeter] 86 Respiratory Rate 18 Blood Pressure [Ri ght Forearm] 168/94 H Pulse Oximetry 98 Oxygen Delivery Me thod Room Air Course Vital Signs Vital signs: Initial Vital Signs Temperature 97.4 F L 03/23/25 09:33 Temperature Source Temporal Artery Scan 03/23/25 09:33 Pulse Rate 86 03/23/25 09:33 Pulse Rhythm Regular 03/23/25 09:33 Pulse Strength 3+ Normal 03/23/25 09:33 Respiratory Rate 18 03/23/25 09:33 Blood Pressure 168/94 H 03/23/25 09:33 Blood Pressure Mean 118 H 03/23/25 09:33 Blood Pressure Position Sitting 03/23/25 09:33 Pulse Oximetry 98 03/23/25 09:33 Oxygen Delivery Method Room Air 03/23/25 09:33 Vital Signs Temperature 97.4 F L 03/23/25 09:33 Pulse Rate 86 03/23/25 09:33 Respiratory Rate 18 03/23/25 09:33 Blood Pressure 168/94 H 03/23/25 09:33 Pulse Oximetry 98 03/23/25 09:33 Oxygen Delivery Method Room Air 03/23/25 09:33 Temperature 97.4 F L 03/23/25 09:33 Pulse Rate 86 03/23/25 09:33 Respiratory Rate 18 03/23/25 09:33 Blood Pressure 168/94 H 03/23/25 09:33 Pulse Oximetry 98 03/23/25 09:33 Oxygen Delivery Method Room Air 03/23/25 09:33 Medical Decision Making MDM Narrative Medical decision making narrative: This patient comes in with left arm pain radiating down into her left hand in the distribution of the ulnar nerve. Spurling's test is positive to bring out worsening symptoms when extending her neck and rotating to the left. Her symptoms seem to be related to a cervical radiculopathy. The patient received a sling but is encouraged to maintain activity as tolerated. Prescriptions for Medrol Dosepak, Toradol, and Flexeril or also provided. The patient does have diabetes and understands that the steroid will increase her blood glucose. She states that she has follow-up appointment with her primary physician. I did recommend follow-up with our spine clinic for ongoing diagnosis and management. Discharge Plan Discharge Clinical Impression: Cervical radiculopathy Patient Disposition: Home, Self-Care Condition: Stable Additional Instructions: Wear sling as needed for comfort. Take medication as directed. Follow-up with primary physician and consider also our spine clinic for ongoing diagnosis and management. Call [phone] for appointment. Prescriptions: New cyclobenzaprine 10 mg tablet 10 mg PO TID Qty: 15 0RF ketorolac 10 mg tablet 10 mg PO TID 5 Days Qty: 15 0RF methylprednisolone [Medrol (Rufus)] 4 mg tablets,dose pack See Rx Instructions .ROUTE .COMPLEX Qty: 21 0RF Rx Instructions: orally per package directions No Action atorvastatin 10 mg tablet 10 mg PO HS escitalopram oxalate 10 mg tablet 10 mg PO DAILY insulin glargine [Lantus Solostar U-100 Insulin] 100 unit/mL (3 mL) insulin pen 60 unit subcut HS lisinopril 10 mg tablet 10 mg PO DAILY Patient Comments: TAKE ONE TABLET BY MOUTH DAILY ergocalciferol (vitamin D2) 1,250 mcg (50,000 unit) capsule 1,250 mcg PO QWEEK Patient Comments: TAKE ONE CAPSULE BY MOUTH ONCE WEEKLY verapamil 240 mg capsule,ext rel. pellets 24 hr 240 mg PO QAM Patient Comments: TAKE ONE CAPSULE BY MOUTH EVERY MORNING bupropion HCl [Wellbutrin XL] 150 mg tablet extended release 24 hr 150 mg PO DAILY Patient Comments: Take 1 tablet by mouth once a day - add to 300mg dose for 450mg total Jardiance 25 mg tablet 25 mg PO DAILY Patient Comments: TAKE ONE TABLET BY MOUTH ONE TIME DAILY nystatin 100,000 unit/gram cream 1 applic topical BID Follow Up/Referrals: Shena Aldana MD [Primary Care Provider] - Stand [facility]one [facility] Inst[facility]
== END 2025-03-23 10:37 | disposition home or self-care (01) ==
LOC: ED 10:36
PROVIDERS: Emergency Provider Emergency Medicine Emergency Medical Services; PCP Family Medicine
DX: M54.12 Radiculopathy, cervical region (principal)
CPT/HCPCS: 99283; 99284

== ENCOUNTER 2025-10-26 10:55 | Emergency (ER) | payer BC, SELFPAY ==
--- OUTSIDE RECORDS SUMMARY | 2025-10-14 03:29 | XMS_ITS ---
Author Organization [facility] Address [address] [place] [address] [address] [place] [address] Care Team Providers Care Administrative Accountant Name Role Phone Jovan Shena ROSETNHAL Primary Care Provider Unavail able Floresita Fair Unavailable [phone] [facility] Floresita ROSENTHAL Unavailable Unavailable Eliu Simms Unavailable [phone] Allergies Allergen (clinical drug ingredient) Drug/Non Drug Allergy documented on EMR Reaction Allergy Type Onset Date Status sumatriptan Imitrex GI issues Drug Allergy ActivetopiramateTopamaxshakesDrug AllergyActivecefaclorCefaclorFamily History of AllergyDrug AllergyActiveibuprofenIbuprofenGI IssuesDrug AllergyActiveinsulin aspart, humanInsulin Aspart (Novolog)RashDrug AllergyActive REASON FOR VISIT pre/post op call 10/18 Medications Medication SIG (Take, Route, Frequency, Duration) Notes Start Date End Date Status HYDROcodone-Acetaminophen 5- 325 MG Tablet 1 tablet as needed Orally 3 times a day; Duration: 4 days Post-Procedure Scripts 10/18/2025 Active Encounters Encounter Location Date Provider Diagnosis [facility] [address] [place] [address] [address] [place] [address] 10/14/2025 Eliu Simms Plan Of Treatment Medication Medication Name Sig Start Date Stop Date Notes HYDROcodone-Acetaminophen 5-325 MG Table t 1 tablet as needed Orally 3 times a day; Duration: 4 days 10/18/2025 Post-Procedure Scripts Progress Notes * Moira DOUGLAS MDOB:[birth year] (40 yo F)Acc No.[id number]:10/14/2025 Patient:?Moira DOUGLAS :1985???Age:40 Y???Sex:FemalePhone:Address:[address] [place] [address], [id number] * Refills Start HYDROcodone-Acetaminophen Tablet, 5-325 MG, Orally, 12 Tablet, 1 tablet as needed, 3 times a day, 4 days, Refills=0 Subjective: * Chief Complaints: * P re/post op call 10/18 * Medical History: Diabetes (II) Epilepsy Bilateral Carpal Tunnel Syndrome Edentulism Asthma Bipolar Depression Headaches High Cholesterol Migraines * Allergies: I mitrex: GI issuesTopamax: shakesIbuprofen: GI IssuesCefaclor: Family History of AllergyInsulin Aspart (Novolog): RashyesAllergies Verified. Plan: * Treatment: Start HYDROcodone-Acetaminophen Tablet, 5-325 MG, 1 tablet as needed, Orally, 3 times a day, 4 days, 12 Tablet, Refills 0, Notes to Pharmacist: Post-Procedure Scripts.?? 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
--- OUTSIDE RECORDS SUMMARY | 2025-10-18 05:00 | XMS_ITS ---
Author Organization [facility] Address [address] [place] [address] [address] [place] [address] Care Team Providers Care Reclamation Kettle Tender Name Role Phone Shena Aldana MD Primary Care Provider Unavail able Floresita Fair Unavailable [phone] [facility] Floresita ROSENTHAL Unavailable Unavailable Eliu Simms Unavailable [phone] REASON FOR VISIT sedation Repeat Left L4-L5, L5-S1 RFA Encounters Encounter Location Date Provider Diagnosis [address] [facility] [address] [facility] [address] [place] [address] 10/18/2025 Eliu Simms Spondylosis without myelopathy or radiculopathy, lumbosacral region M47.817 Assessments Encounter Date Diagnosis (ICD Code) Assessment Notes Treatment Notes Treatment Clinical Notes Section Notes 10/18/2025 Spondylosis without myelopathy or radiculopathy, lumbosacral region (ICD-10 - M47.817) Plan Of Treatment No Information Progress Notes * Moira DOUGLAS MDOB:[birth year] (40 yo F)Acc No.[id number]:10/18/2025 Patient:?Moira Douglas :?Eliu Simms M.D.:1985???Age:40 Y ???Sex:FemaleDate:10/18/2025Phone:Address:[address] [place] [id number]:Shena Aldana MD Billing Information: * Procedure Codes: 30866 Radiofrequency L [place] S single [place]: [place] [address] Radiofrequency L or S addl levels. Units: 2.00. Mod[place]: [place] [address] Urine Test. Modifiers: QW J2704 Propofol 10 mg/ml. Units: 21.00. A4616 IV Tubing. A4930 Gloves Sterile Per Pair. A4556 EKG Pads-Electrodes. A4209 5 cc - 19 cc gauge syringe. Units: 2.00. A4649 IV Starter Kit. A4215 Assawoman only Sterile any size each. Units: 5.00. A4615 O2 Mask. A4550 Radiofrequency Kit. S1015 IV Extension Set. J0665 Inj, bupivacaine, nos, 0.5mg. J1010 Inj, methylpred acetate 1 mg. Units: 40.00. Modifiers: JZ * ign off status: Completed true * Provider: Niki Simms M.D. Date: 12/19/2024 Generated for Printing/Faxing/eTransmitting on:?10/26/2025 10:58 AM PUBLICITY PERSON
--- OUTSIDE RECORDS SUMMARY | 2025-10-26 10:58 | XMS_ITS | Clinical Summary ---
Author Organization [facility] Address [address] [place] [address] Care Team Providers Care Hot Plate Press Operator Name Role Phone Rabia Alarcon CLINICAL LABORATORY AIDE Unavailable Unavailable Shena Aldana MD Primary Care Provider Allergies Active AllergyReactionsCriticalityNoted DateCommentsCefaclorOther - Describe In Comment Field04/28/2006 Mother and brother had severe reactions, she has never taken it ZhdfnrfukdQcipgdtvcNzyj22/03/2017IbuprofenGI Upset03/26/2007SumatriptanOther - Describe In Comment Field07/17/2007 serotonin syndrome Insulin Asp Prt-Insulin KbwijhDgpw19/07/2015Insulin UzxesyUhdsQio40/02/2016 NaltrexoneGI Upset01/20/2023 Severe gi upset, leg swelling Nsaids (Non-Steroidal Anti-Inflammatory Drug)GI Upset12/13/2015 Other reaction(s): GI intolerance Ksicejlzon05/09/2010 seizure TopiramateIntolerance-Can't Take03/17/2009 shakiness Medications MedicationSigDispense QuantityRefillsLast FilledStart DateEnd DateStatus albuterol HFA (PRO-AIR; VENTOLIN; PROVENTIL) 90 mcg/actuation inhaler Indications:Mild intermittent asthma without complication (HC)Inhale 2 Puffs by mouth 4 times daily if needed for Shortness Of Breath or Wheezing. 8.5 g 1104Active continuous glucose monitor READER (Cyanto Delvis 14 Day [place]) Indications:Diabetes mellitus without complication (HC)As directed. 1 Each 11/24/2023ctive FreeStyle Delvis 2 [place] Indications:Diabetes mellitus without complication (HC)To be used to read blood sugars per assistant store leader's directions. 1 Each 11/24/2023ctive blood-glucose meter Indications:Type 2 diabetes mellitus with other specified complication, with long-term current use of insulin (HC)Dispense meter covered by pts insurance. Test 3 times/day 1 Each 12/15/2024tive blood sugar diagnostic (Blood Glucose Test) strip Indications:Type 2 diabetes mellitus with other specified complication, unspecified whether long term care administrator insulin use (HC)Test 3 times per day. 100 Each 12/15/2024tive lancets Indications:Type 2 diabetes mellitus with other specified complication, with long-term current use of insulin (HC)As directed. Test 3 times per day. 100 Each 5Active lisinopriL 10 mg tablet Indications:HTN (hypertension)TAKE 1 TABLET (10 MG) BY MOUTH ONCE DAILY. 90 Tablet 5Active escitalopram oxalate 10 mg tablet Indications:Generalized anxiety disorderTake 1 Tablet (10 mg) by mouth once daily in the morning. 90 Tablet 5Active buPROPion 300 mg Extended-Release tablet Indications:Generalized anxiety disorder,Mild episode of recurrent major depressive disorderTake 1 Tablet (300 mg) by mouth once daily. 90 Tablet 5Active Jardiance 25 mg tablet Indications:Type 2 diabetes mellitus with hyperglycemia, with long-term current use of insulin (HC)Take 1 Tablet (25 mg) by mouth once daily. 90 Tablet 5Active continuous glucose monitor SENSOR KIT (FreeStyle Delvis 2 Sensor) Indications:Diabetes mellitus without complication (HC)To be used to read blood sugars per assistant store leader's directions. 6 Each 5Active verapamiL (VERELAN) 240 mg Controlled-Release capsule Indications:HTN (hypertension),Other migraine without status migrainosus, not intractableTake 1 Capsule (240 mg) by mouth once daily in the morning. 90 Capsule 5Active tirzepatide (Mounjaro) 15 mg/0.5 mL pen Indications:Diabetes mellitus without complication (HC)Inject 15 mg subcutaneous once weekly. 6 mL 5Active atorvastatin (LIPITOR) 10 mg tablet Indications:Hyperlipidemia, unspecified hyperlipidemia typeTAKE 1 TABLET (10 MG) BY MOUTH AT BEDTIME. 90 Tablet 5Active Ajovy Autoinjector 225 mg/1.5 mL subcutaneous pen Inject 225 mg subcutaneous.5Active nystatin 100,000 unit/gram cream Indications:Candidal intertrigoApply topically to affected area(s) two times daily. Apply thin layer to rash 30 g 5Active metroNIDAZOLE (FLAGYL) 500 mg tablet Indications:BV (bacterial vaginosis)Take 1 Tablet (500 mg) by mouth two times daily for 7 days. 14 Tablet 5111/29/2024Expired Active Problems ProblemNoted DateDiagnosed DateCervical iozbtrjrh19/13/2024Type 2 diabetes mellitus with other specified complication, unspecified whether group home insulin use4Adrenal rxohur2001/20/2023Type 2 diabetes mellitus with hyperglycemia, without long-term current use of urjpwkb94/01/2021Controlled substance agreement nqsrji3004/09/2019Moderate episode of recurrent major depressive lgvyjnfo89/31/2017Generalized anxiety ubluozmi80/31/2017Pre Tlqyegr6205/31/2014 Overview (06/02/2014): 28 y.o. Pre- consult NEXT VISIT ALERTS: PRIMARY DIAGNOSIS: Morbid obesity BMI=49.5, Type 2 DM (A1C = 6.6), Hyperlipidemia, hx seizures(hasn't had one in 4 years), bipolar, asthma, smoker (1ppd) REFERRING PHYSICIAN: Dr. Carolina Gage -Dr. Clemens = wind turbine technician (last saw 05/27/14) MEDS: Januvia Pertinent/Abnormal LABS: Blood type: TSH 0.88 PLATELETS 508,000 Hgb A1C = 6.6 on 05-27-14 Hyperlipidemia TRIGLYCERIDES 258 (H) <150 mg/dL Final HDL CHOLESTEROL 33 (L) >40 mg/dL - 01/14/14 On 05-27-14: Triglycerides 262 Final HDL 34 GENETICS: DELIVERY PLANS: PLAN OF CARE: Wajcktqdhsitjwfoswcj95/01/2013Nicotine howzaoerzc47/19/2012CP (advance care planning)2011 Overview (2011): Patient has identified Health Care Agent(s): No Add Health Care Agents: No Patient has Advance Care Plan Documents (Health Care Directive, POLST): No, Analytic Manager to review with patient . Patient has identified Specific Treatment Preferences: No Specific limits to treatment preferences NOT identified: ASSUME FULL TREATMENT. Pilar Mendosa RN RN Medical Home [facility] Analytic Manager [facility] [phone] Recurrent herpes mljusqgn85/27/2011Unspecified episodic mood icmdvbqy67/20/2011 Overview (08/04/2012): Probable MDD, monitoring Carpal tunnel /03/2011Fatty liver09/17/2010Scheuermann's disease 04/16/2010Hyperlipidemia LDL goal < 30912DUB (dysfunctional uterine bleeding)02/06/2009PCO (polycystic ovaries)02/06/2009typical squamous cells cannot exclude high grade squamous intraepithelial lesion on cytologic smear of cervix (ASC-H)10/05/2007 Overview (10/03/2025): 09/2007 ASCH 11/2007 Marion: KAREN 1, Pap: NIL/HPV positive 12/2008 Marion: Suspicious for HPV. Pap: LSIL/HPV positive 08/2009 NIL 07/2010 NIL 08/2012 NIL 07/2013 ASCUS/HPV positive 08/2013 Marion: KAREN 1 03/2015 NIL/HPV negative 06/2016 ASCUS/HPV+, 16/18 negative 11/2016 NIL/HPV+ 11/2016 Marion: suggestive of KAREN 1 01/2018 ASCUS/HPV+ 06/2018 NIL 06/2018 Marion: suggestive of HPV 07/2021 NIL/HPV 16+, HPV 18 negative 12/2023 NIL/HPV 16+, HPV 18 negative 01/12/24 Marion: suggestive of KAREN I; ECC negative 05/2024 LEEP: KAREN I, clear margins 09/2025 NIL/HPV negative Plan: HPV-based testing due 09/2028 Degeneration of lumbar or lumbosacral intervertebral disc08/21/2007Migraine, unspecified, without mention of intractable migraine without mention of status lrbgfhuflsw86/25/2007Borderline personality lolmzgql11/14/2007Obesity, hyrthuuinrg56/12/2007Unspecified asthma(493.90)01/28/2007Unspecified drug dependence, /23/2007 Overview (01/02/2007): - tox screen. Broke narcotics agreement. Likely diverting, selling etc. NO MORE NARCOTICS Type II or unspecified type diabetes mellitus without mention of complication, not stated as mpxzoqitiooh19/03/8551Negbartfbaujp39/18/2006Endometriosis, site yrblmikrhbd39/18/2006 Resolved Problems ProblemNoted DateDiagnosed DateResolved DateControlled substance agreement amfmmh06 Overview (04/13/2018): [facility] (11/19/17) 90 day reminder signed. Iris uF CMA...........04/13/2018 8:42 AM Medical Home05/27/Medical HomeMedical Home 01/09/ Overview (01/09/2011): Analytic Manager Dori Duval RN [phone] Carpal tunnel brlpesck74Other specified episodic mood disorder Tobacco abuse03/03/Spells03/02/ Anemia, anrrqelssxl21/23/Memory /23/Diabetes 12/26/Lumbar facet gsybqnxwaqr41Smoker07/29/2008 04/28/2012Mild dysplasia of udviag99/21/Spondylosis of unspecified site without mention of yfwmdpumdh23/29/Other convulsions Other specified viral warts05/28/ Dermatophytosis of foot05/28/ipolar disorder, unspecified Other and unspecified kdgnvleuazpdjr83 Unspecified symptom associated with female genital ykrunn89 Tpyhgdmuwhrn97/25/2013 Overview (05/18/2009): reactive, likely sec to smoking (see path report 04/28/08) Encounters DateTypeDepartmentCare JiogXrfkinvatbh99/09/2025Orders Only [facility] Scanner 1 scan: (1-Ord) [facility] (ISPINE), LUMBAR RADIOFREQUENCY , 12:50 PM CSTOffice Visit [facility] [address] [place] [address] Prudencio Buckner MD Ear Problem (Left ear pain)10/04/20252544Afqyfh54/12/2025 10:30 AM CSTOffice Visit [facility] [address] [place] [address] Shena Aldana MD Physical (39 yr/); Diabetes (Needs a new CGM as they are discontinuing the Delvis 2 )09/21/2025Refill [facility] [address] [place] [address] Shena Aldana MD Refill Request (Ajovy)09/21/20253283Slyvsw97/09/7727Usqnau15/07/2025E-Visit [facility] [address] [place] [address] Shena Aldana MD Yeast /30/2025Refill [facility] [place] [phone] Floresita Fair MD Refill Request (Ajovy Autoinjector)08/23/2025Transcribe Orders [facility] [place] [phone] Floresita Fair MD 07/29/2025Orders Only [facility] Scanner 1 scan: (1-Ord) [facility], 07/29/2025from Last 3 Months Immunizations ImmunizationAdministration DatesNext DueCOVID-19 VACCINE SPIKEVAX (MODERNA 50MCG/0.5ML) 12YO+ PFS12/15/2024,4COVID-19 vaccine (Pfizer-BioNTech 30mcg/0.3mL) 12YO+ BIVALENT PF, MDV12COVID-19 vaccine (Pfizer-BioNTech 30mcg/0.3mL) PF, MDV07/18/2021,1DTP04/22/1985,01/22/1985,1984HPV 9 (Gardasil 9)09/21/2025Hepatitis B (Adult)12/25/2000,06/06/2000,05/06/2000 INFLUENZA, IIV3 PF (AGE >= 6 MO)09/21/2025,12/15/2024Influenza A (H1N1), Inactivated (Age >=3 Years)11/15/2009Influenza, IIV3 (Age >=3 years)09/08/2013, 08/27/2012,07/26/2010,11/14/2009,08/19/2007,09/12/2005Influenza, ZAY67411/24/2023, 10/16/2022,08/12/2016,08/02/2014MMR02/01/1986Oral Polio Qkznbxn7201/22/1985, 1984Pneumococcal Conj 20-valent (Prevnar 20)2Pneumococcal Poly,23-Valent (Pneumovax)11/16/2012Td (Age >=7 Years)03/05/2006Tdap112/17/2021, 08/27/2012 Family History Medical HistoryRelationNameCommentsOtherBrother 2DepressionCancerFather testicularOtherFatherDepressionHeart DiseaseMotherOtherMotherDepressionCancer Paternal GrandfatherDiabetesPaternal GrandmotherOtherPaternal Grandmother DepressionRelationNameStatusCommentsBrother 1AliveBrother 2FatherAliveMaternal GrandfatherDeceasedMaternal GrandmotherDeceasedMotherAlivePaternal Grandfather DeceasedPaternal GrandmotherDeceased Social History Tobacco UseTypesPacks/DayYears UsedDateSmoking Tobacco: Every IuwUxycvtvwbs273 Smokeless Tobacco: Never Tobacco Cessation:Ready to Q uit: No; Counseling Given: Not Answered Comments:1 p.p.d. > not quite ready yet. Alcohol UseStandard Drinks/WeekCommentsYes0 (1 standard drink = 0.6 oz pure alcohol)very seldom; no desire.PHQ-2AnswerDate RecordedPHQ-2 TOTAL SCORE3 09/21/2025Social ConnectionsAnswerDate RecordedDo you often feel lonely or isolated from those around you?lcohol UseAnswerDate RecordedHow often do you have a drink containing alcohol?verage Number of Drinks Not on file09/21/2025Frequency of Binge DrinkingNot on file09/21/2025Financial Resource StrainAnswerDate RecordedDifficulty of Paying Living Expenses3 12/15/2024Difficulty of Paying Living ExpensesNot on file12/15/2024Food InsecurityAnswerDate RecordedDo you worry your food will run out before you are able to buy more?Transportation NeedsAnswerDate RecordedDoes lack of transportation keep you from medical appointments?Does lack of transportation keep you from work, meetings or getting things that you need?1 12/15/2024Housing StabilityAnswerDate RecordedWhat is your housing situation today?UtilitiesAnswerDate RecordedDo you have trouble paying for utilities (for example, heat, electricity, water, phone)? CommentsNoSex and Gender InformationValueDate RecordedSex Assigned at BirthNot on fileLegal DxjRhxbvl80/14/2013 5:46 AM CSTGender IdentityNot on fileSexual OrientationNot on fileOccupationIndustryJob Start DateJob End Date[employer] dep't.Not on fileNot on fileNot on [id number] on fileNot on file Not on file Obstetrics History GravidaParaTermPretermABIABSABEctopicMultipleLivingLive [id number] Last Filed Vital Signs Vital SignReadingTime TakenCommentsBlood Apkbifyo334/8211 12:56 PM ELECTRONIC IMAGING SYSTEM OPERATOR Jvtcu571210/04/2025 12:56 PM JIYLzyfzjothpl59.4 ??C (97.6 ??F)05/04/2025 2:32 PM CDTRespiratory Jrbq278205/04/2025 2:32 PM CDTOxygen Bvvqdelcsb228%10/04/2025 12:56 PM CSTInhaled Oxygen Concentration--Uyusid89.9 kg (196 lb)10/04/2025 12:56 PM PPQReefsa858.2 cm (5' 7)09/21/2025 10:40 AM CSTBody Mass Index30.7111/21/2024 10:40 AM ELECTRONIC IMAGING SYSTEM OPERATOR Plan of Treatment Health MaintenanceDue DateLast DoneCommentsCOVID-19 vaccine series ( season)502/03/2025, 11/24/2023, 10/16/2022, Additional history exists HPV series for age 9-45 (2 - 3-dose SCDM series)5BMI (ht and wt on same day) for age 18+, 06/20/2025, 07/21/2024, Additional history existsDepression screening for age 12+, 11/24/2023, 11/24/2023, Additional history existsPap test for age 21-65 , 09/21/2025, 06/03/2024 (Verified in Care Everywhere or Patient Record), Additional history existsTetanus kaiealo91/05/2022, 08/27/2012, 03/05/2006Hepatitis B series for 19+Vnxwodseh30/15/2001, 06/06/2000, 05/06/2000HIV for age 15-23Ytigurmtn65/19/2009Pneumococcal series for age 6-49 Avkexluam99/07/2022, 11/16/2012Hepatitis C screening for age 18-79Completed 01/20/2023Influenza JpabgoeOapjwfhhx95/12/2025, 12/15/2024, 11/24/2023, Additional history exists Goals GoalPatient Goal TypeAssociated ProblemsRecent ProgressPatient-Stated?Author DIABETES-KEEPS DAILY LOG OF GLUCOSE CHECKS Rosanne Nettles DIABETES-PATIENT CHECKS BLOOD SUGAR 3-4 TIMES PER WEEK Rosanne Nettles DIABETES-PATIENT TAKES LANTUS INJECTION EACH MORNING PRESCRIBED Rosanne Nettles Procedures Procedure NamePriorityDate/TimeAssociated DiagnosisCommentsSCAN- OPERATIVE/PROCEDURE HLLQFS5210/18/2025 12:00 AM ELECTRONIC IMAGING SYSTEM OPERATOR ELEVATED WORK PLATFORM OPERATOR THIN PREP PAP SCREEN RFXWINDxejvrk08/12/2025 10:55 AM ELECTRONIC IMAGING SYSTEM OPERATOR Pap smear for cervical cancer screening HPV HIGH JYTZImlsuen38/12/2025 10:55 AM ELECTRONIC IMAGING SYSTEM OPERATOR Pap smear for cervical cancer screening GC CHLAMYDIA TRACH SXPJNMokzmmu08/12/2025 10:55 AM ELECTRONIC IMAGING SYSTEM OPERATOR Screen for STD (sexually transmitted disease) TRICHOMONAS, KASSIE, AND BACTERIAL VAGINOSIS BY KAEJzneahl44/12/2025 10:55 AM ELECTRONIC IMAGING SYSTEM OPERATOR Yeast vaginitis HEMOGLOBIN A1C MONITORING (POCT)Kmgwuci5709/21/2025 10:32 AM ELECTRONIC IMAGING SYSTEM OPERATOR Diabetes mellitus without complication (HC) BASIC METABOLIC JKYESZascvik38/12/2025 10:32 AM ELECTRONIC IMAGING SYSTEM OPERATOR HTN (hypertension) SCAN-EYE EXAM07/29/2025 12:00 AM CDT LC HCV ANTIBODY RFX TO QUANT XCVIckyxrd02/13/2023 11:40 AM CDT Need for hepatitis C screening test ANTI HIV 1/2Myxyovz42/19/2009 12:04 PM CDT Exposure to Sexually Transmitted Disease (STD) from Last 3 Months or Most Recently Relevant to Health Maintenance Results * SCAN-OPERATIVE/PROCEDURE REPORT (10/18/2025 12:00 AM ELECTRONIC IMAGING SYSTEM OPERATOR) Narrative Authorizing ProviderResult TypeResult StatusScannerOTHERFinal Result * (ABNORMAL) TRICHOMONAS, KASSIE, AND BACTERIAL VAGINOSIS BY BRIGID (09/21/2025 10:55 AM ELECTRONIC IMAGING SYSTEM OPERATOR)ComponentValueRef RangeTest MethodAnalysis TimePerformed At Pathologist SignatureCANDIDA SPECIESNegativeNegative, NOT Hywpbuiv22/12/2025 8:04 PM CSTSELECT [facility]TY [facility]ITALCENTRAL LABORATORYCANDIDA GLABRATANegative Idmtuvmr08/12/2025 8:04 PM [facility]STM[facility] TRICHOMONAS VVANegativeNegative, NOT Tzemdhrm60/12/2025 8:04 PM [facility] LABORATORYBACTERIAL VAGINOSISPositive(A)Negative, NOT Mdpqtnbe57/12/2025 8:04 PM [facility] Specimen (Source)Anatomical Location / LateralityCollection Method / Volume Collection TimeReceived TimeOtherVAGINAL SWAB / UnknownNon-Blood / Unknown 09/21/2025 10:55 AM CST09/21/2025 11:27 AM ELECTRONIC IMAGING SYSTEM OPERATOR Narrative Authorizing ProviderResult TypeResult StatusShena Aldana MDMICROBIOLOGY Final ResultPerforming OrganizationAddressCity/State/ZIP CodePhone Number [facility] [address] * ELEVATED WORK PLATFORM OPERATOR THIN PREP PAP SCREEN IMAGED (09/21/2025 10:55 AM ELECTRONIC IMAGING SYSTEM OPERATOR)ComponentValueRef RangeTest MethodAnalysis TimePerformed AtPathologist SignatureCase Report Gynecologic Cytology Report ? Case: [id number] ? Authorizing Provider: ??Shena Aldana MD Collected: ? 09/21/2025 1055 ? Ordering Location: ? [facility] ?? Received: ?09/21/2025 1127 ? Clinic ? First Screen: ?Yu Quintero ? Specimen: ?ELEVATED WORK PLATFORM OPERATOR ThinPrep Vial Screening, Cervical ? 10/03/2025 12:00 PM [facility] INTERPRETATION/RESULTNEGATIVE FOR INTRAEPITHELIAL LESION OR MALIGNANCY (NIL) (none)10/03/2025 12:00 PM [facility] at 1200 ELECTRONIC IMAGING SYSTEM OPERATOR ORGANISM(S)Shift in blaine suggestive of bacterial ovoukjncd47/24/2025 12:00 PM [facility]-CENTRAL LABORATORYSPECIMEN ADEQUACYSatisfactory for evaluation Endocervical component wdakxxp6710/03/2025 12:00 PM [facility] C[facility]TRAL LABORATORYHPV REQUESTHPV and PAP10/03/2025 12:00 PM [facility]CENTRAL LABORATORYDate of LMP10/12/03/2024 12:00 PM [facility]AL LABORATORYLast Pap Date 12:00 PM [facility] LABORATORYLast Pap LgvushUSO35/24/2025 12:00 PM [facility]CENTRAL LABORATORYAbnormal Pap or Marion Bx in last 5 todliDb4710/03/2025 12:00 PM [facility] Menstrual StatusRegular Rsmhxnd7610/03/2025 12:00 PM [facility] LABORATORYColp Bx Done HauanZw2510/03/2025 12:00 PM [facility] LABORATORYAdditional InformationNone given10/03/2025 12:00 PM [facility] LABORATORYComment: Cytology is screened at [facility] - [address], [place] [address] [facility] - [address] [place] [address] and [facility] - [address] [place] [address] Interpreted at [facility] - [address], [place] [address] Automated WnahrhQuggoxmtwq12/24/2025 12:00 PM [facility] LABORATORYComment:Specimen processed successfully by automated skin specialist device, [email or web address] Imaging System, [employer]ANCILLARY TESTING GYNHPV Ordered, Please see separate krznsr2610/03/2025 12:00 PM [facility] LABORATORYNoteThe pap test is a screening technique, not a diagnostic procedure. It is used primarily to screen for squamous cancers and precursor lesions. Published studies have shown that it is subject to both false negative and false positive results. The pap test should not be used as the sole means to diagnose or exclude pre-malignant and malignant lesions.10/03/2025 12:00 PM [facility] LABORATORYSpecimen (Source)Anatomical Location / LateralityCollection Method / VolumeCollection TimeReceived TimeOther (Cervical)Non-Blood / Nmazdjj2909/21/2025 10:55 AM CST09/21/2025 11:27 AM ELECTRONIC IMAGING SYSTEM OPERATOR Narrative Authorizing ProviderResult TypeResult StatusShena Aldana MD PATHOLOGY/CYTOLOGYFinal ResultPerforming OrganizationAddressCity/State/ZIP Code Phone Number [facility] [address] [place] [address], * GC & CHLAMYDIA DNA PCR [[id number]] (09/21/2025 10:55 AM ELECTRONIC IMAGING SYSTEM OPERATOR)ComponentValueRef RangeTest MethodAnalysis TimePerformed AtPathologist SignatureCHLAMYDIA PROBE Negative 09/21/2025 8:35 PM [facility] LABORATORYN GONORRHOEAE PROBENegative 09/21/2025 8:35 PM [facility] LABORATORYSpecimen (Source)Anatomical Location / LateralityCollection Method / VolumeCollection TimeReceived TimeOtherVAGINAL SWAB / UnknownNon- Blood / Vdxwoqj8409/21/2025 10:55 AM CST09/21/2025 11:27 AM ELECTRONIC IMAGING SYSTEM OPERATOR Narrative Authorizing ProviderResult TypeResult StatusJorgekevin Serrano Jovan MDMICROBIOLOGY Final ResultPerforming OrganizationAddressCity/State/ZIP CodePhone Number [facility] [address] [place] [address], * HPV HIGH RISK (09/21/2025 10:55 AM ELECTRONIC IMAGING SYSTEM OPERATOR)ComponentValueRef RangeTest Method Analysis TimePerformed AtPathologist SignatureTYPE 16NegativeNegative 2025 8:58 AM [facility] LABORATORYTYPE 18 XksvrlvvStbcqgxw56/18/2025 8:58 AM CSTMISSISSIPPI [facility] LABORATORYOTHER HIGH RISK OSGBTJnoynonzUhgwmxqy07/18/2025 8:58 AM CSTMISSISS[facility] LABORATORYSpecimen (Source)Anatomical Location / LateralityCollection Method / VolumeCollection TimeReceived TimeOther (Cervical)Non-Blood / Zqgrvwd4509/21/2025 10:55 AM CST09/23/2025 9:26 AM ELECTRONIC IMAGING SYSTEM OPERATOR Narrative [facility] - 2025 8:58 AM ELECTRONIC IMAGING SYSTEM OPERATOR HPV types 16, 18, 31, 33, 35, 39, 45, 51, 52, 56, 58, 59, 66 and 68 DNA were undetectable or below the pre-set threshold. Methodology: Michael Chente 4800 HPV Test Authorizing ProviderResult TypeResult StatusShena Aldana [facility] HOSPITALICROBIOLOGY Final ResultPerforming OrganizationAddressty/State/ZIP CodePhone Number [facility] [address] [place] [address], * HEMOGLOBIN A1C MONITORING (POCT) (09/21/2025 10:32 AM ELECTRONIC IMAGING SYSTEM OPERATOR)ComponentValueRef RangeTest MethodAnalysis TimePerformed AtPathologist SignaturePOC HEMOGLOBIN A1C5.9<6.0 % OF TOTAL HGB111/21/2024 10:46 AM CSTALLINA HEALTH NORTHFIELD CLINICComment: Any point of care results exhibiting inconsistency with the patient's clinical status should be repeated using a different testing method. Specimen (Source)Anatomical Location / LateralityCollection Method / Volume Collection TimeReceived TimeBloodBLOOD SPECIMEN / UnknownQuest Collect / Unknown 09/21/2025 10:32 AM CST09/21/2025 10:32 AM ELECTRONIC IMAGING SYSTEM OPERATOR Narrative Authorizing ProviderResult TypeResult StatusShena Aldana MDCHEMISTRY Final ResultPerforming OrganizationAddressCity/State/ZIP CodePhone Number [facility] [address] [place] [address], [place] [phone] [facility] [address] [place] [address], [place] [phone] * BASIC METABOLIC PANEL (09/21/2025 10:32 AM ELECTRONIC IMAGING SYSTEM OPERATOR)ComponentValueRef RangeTest MethodAnalysis TimePerformed AtPathologist UwgxekhbvTRMAQN895012 - 146 mmol/L 09/22/2025 3:52 AM CSTQUEST DIAGNOSTICSPOTASSIUM4.33.5 - 5.3 mmol/L111/22/2024 3:52 AM CSTQUEST DIAGNOSTICSCARBON IZBMZJZ6901 - 32 mmol/L111/22/2024 3:52 AM CSTQUEST WTMXZBXDXXXWGMZSFM0694 - 99 mg/dL09/22/2025 3:52 AM CSTQUEST DIAGNOSTICSComment: ? Fasting reference interval CALCIUM9.58.6 - 10.2 mg/dL09/22/2025 3:52 AM CSTQUEST DIAGNOSTICSCREATININE0.66 0.50 - 0.99 mg/dL09/22/2025 3:52 AM CSTQUEST DIAGNOSTICSBUN/CREATININE RATIOSEE NOTE:6 - 22 (calc)09/22/2025 3:52 AM CSTQUEST DIAGNOSTICSComment: ?? Not Reported: BUN and Creatinine are within ?? reference range. ? PRSX221> OR = 60 mL/min/1.61c08909/22/2025 3:52 AM CSTQUEST DIAGNOSTICSUREA NITROGEN (BUN)87 - 25 mg/dL09/22/2025 3:52 AM CSTQUEST DIAGNOSTICSELECTROLYTE BKAIBWN15 - 17 mmol/L (calc)09/22/2025 3:52 AM CSTQUEST OUDOTOTJZZGRTASCDVL16222 - 110 mmol/L111/22/2024 3:52 AM CSTQUEST DIAGNOSTICSSpecimen (Source)Anatomical Location / LateralityCollection Method / VolumeCollection TimeReceived TimeBlood BLOOD SPECIMEN / UnknownQuest Collect / Hvrocdb1709/21/2025 10:32 AM CST09/21/2025 10:32 AM ELECTRONIC IMAGING SYSTEM OPERATOR Narrative Authorizing ProviderResult TypeResult StatusShena Aldana MDCHEMISTRY Final ResultPerforming OrganizationAddressCity/State/ZIP CodePhone Number [facility] [address] [place] [address], * SCAN-EYE EXAM (07/29/2025 12:00 AM CDT) Narrative Authorizing ProviderResult TypeResult StatusScannerOTHERFinal Result * LC HCV ANTIBODY RFX TO QUANT PCR (01/20/2023 11:40 AM CDT)ComponentValueRef RangeTest MethodAnalysis TimePerformed AtPathologist SignatureHCV AbNon ReactiveNon Wxyeerey43/15/2023 9:06 PM CDTLABCORP [facility] (CET)Specimen (Source)Anatomical Location / Laterality Collection Method / VolumeCollection TimeReceived TimeBloodBLOOD SPECIMEN / UnknownVenipuncture / Dqepymk9101/20/2023 11:40 AM CDT01/20/2023 11:43 AM CDT Narrative [facility] ([facility]) - 01/22/2023 9:06 PM CDT Performed at: [address] [place] [address] ??[phone] Complaint Clerk: Rah Sellers MD, Phone: ??[phone] Authorizing ProviderResult TypeResult StatusShena Aldana MDLABORATORY Final ResultPerforming OrganizationAddressCity/State/ZIP CodePhone Number [facility] ([facility]) [address] [place] [phone], * ANTI HIV 1/2 (08/28/2009 12:04 PM CDT)ComponentValueRef RangeTest Method Analysis TimePerformed AtPathologist SignatureANTI HIV 1/2Non-reactiveABBOTT SAINT CABRINI HOSPITALpecimen (Source)Anatomical Location / Laterality Collection Method / VolumeCollection TimeReceived TimeBlood specimen (specimen)BLOOD SPECIMEN / Yuxrjbz7508/28/2009 12:04 PM CDT1 12:01 PM CDT Narrative Authorizing ProviderResult TypeResult StatusMichael Regulo Bui MDSEND OUTS Final ResultPerforming OrganizationAddressCity/State/ZIP CodePhone Number [facility] [place]NAL [address]IP [address] [place] [phone] from Last 3 Months or Most Recently Relevant to Health Maintenance Insurance * Guarantor: Moira Douglas TypeRelation to PatientDate of PhoneBilling AddressWorkers [address] [place] [address] * Guarantor: JORGE HOMESAccount TypeRelation to PatientDate of BirthPhoneBilling AddressWorkers VocnIaiyouwc[address]01/[address] [place] [address] Advance Directives * Full Code (Latest Code Status on File) Date ActivatedDate InactivatedComments11/12/2010 7:29 AM11/12/2010 2:08 PM * Full Code Date ActivatedDate IobeqztifmqKlqssyyi00/22/2010 8:00 AM10/31/2010 1:19 PM * Full Code Date ActivatedDate InactivatedComments03/02/2010 8:17 PM03/03/2010 5:08 PM * Full Code Date ActivatedDate SnodqmvklyeKiybofan22/1/2008 3:05 08/10/2008 5:26 PM Care Teams Team MemberRelationshipSpecialtyStart DateEnd Date Shena Ald[place] [address] [address] PCP - GeneralFamily Pzjkxrcm91/12/25 Rabia Alarcon NP PsychiatryNurse Practitioner02/24/17
--- OUTSIDE RECORDS SUMMARY | 2025-10-26 10:59 | XMS_ITS | Patient Health Record ---
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 Role Phone Jovan Shena ROSENTHAL Primary Care Provider Unavail able Floresita Fair Unavailable [phone] [facility] Floresita ROSENTHAL Unavailable Unavailable Eliu Simms Unavailable [phone] Allergies Allergen (clinical drug ingredient) Drug/Non Drug Allergy documented on EMR Reaction Allergy Type Onset Date Status sumatriptan Imitrex GI issues Drug Allergy ActivetopiramateTopamaxshakesDrug AllergyActivecefaclorCefaclorFamily History of AllergyDrug AllergyActiveibuprofenIbuprofenGI IssuesDrug AllergyActiveinsulin aspart, humanInsulin Aspart (Novolog)RashDrug AllergyActive Reason For Referral Reason Please evaluate and treat chronic migraines with Botox injections at [facility]. Contact patient at [phone]. Diagnosis 1 Migraine (G43.909) Referral Organization [facility] Referring Provider First Name Floresita Referring Provider Last Name Marv Referring Provider Speciality Pain Medic ine Referred Provider [facility] Referred Provider Specialty Pain Medicin e General Notes Gogo Trujillo 025 10:59:32 AM >Please call the patient to schedule and fax back all notes to [phone]. Thanks! Referral Priority Routine Reason Left and Right L4-S1 Diagnosis 1 Spondylosis without myelopathy or radiculopathy, lumbosacral region (M47.817) Referral Organization [facility] Referring Provider First Name Eliu Referring Provider Last Name Demi Referring Provider Speciality Pain Medic ine Referred Organization [facility] Referred Provider Eliu Simms Referred Address [address] [place] [address] [address],[place], [place],[address],[place] Referred Provider Specialty Pain Medicin e Referral Priority Routine Medications Medication SIG (Take, Route, Frequency, Duration) Notes Start Date End Date Status Verapamil HCl ActiveMounjaro 15 MG/0.5ML Solution Auto-injectorSubcutaneous; Duration: 28 Days ActivebuPROPion HCl ER (XL) 300 MG Tablet Extended Release 24 HourOral; Duration: 90 DaysActiveAjovy 225 MG/1.5ML Solution Auto-injector 225MG Auto-injectoronce monthly subcutaneously once a month; Duration: 30 days 5ActiveHYDROcodone-Acetaminophen 5-325 MG Tablet1 tablet as needed Orally 3 times a day; Duration: 4 daysPost-Procedure Gdjxqtu98/09/2025Active Atorvastatin Calcium 10 MG TabletTAKE 1 TABLET (10 MG) BY MOUTH AT BEDTIME. Oral; Duration: 90 DaysActiveJardiance 25 MG TabletTAKE 1 TABLET (25 MG) BY MOUTH ONCE DAILY. Oral; Duration: 30 DaysActive Social History Tobacco Use: Social History Observation Description Date Details (start date - stop date) Current Smoker NA - NA Social History Drug/Alcohol:Social InfoQuestionAnswerNotesAUDIT-C (Standard)Did you have a drink containing alcohol in the past year?KyOesuho1DlbjtogqtpthpcDkgklxyeMhkdybz Use:Social InfoQuestionAnswerNotesTobacco Control (Standard)Tobacco use:Current smoker? How often do you smoke cigarettes?Every day? 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 Problem Type SNOMED Code ICD Code Onset Dates Problem Status W/U Status Risk Notes Problem Chronic pain (16038547) Other chronic kevyn n (G89.29) ActiveconfirmedProblemLumbosacral spondylosis without myelopathy (disorder) (27494684)Spondylosis without myelopathy or radiculopathy, lumbosacral region (M47.817)ActiveconfirmedProblemMigraine (38043295)Migraine (G43.909)Active confirmed Vital Signs Blood pressure diastolic 72 mm Hg 08/18/2025 Qlxiru08 in08/18/2025lood pressure urjromxn560 mm Hg08/18/20250083Wypkbn435 lbs 08/18/2025BMI32.26 kg/m208/18/2025 Procedures Procedure Date Ordered Date Performed Result Body Sit e Intervention: 2 08/18/2025 need 11/07 weekIntervention:sched 10/18 Encounters Encounter Location Date Provider Diagnosis [facility] [address] [place] [address] 05/05/2025 Eliu Simms [facility] [address] [place] [address]/07/2025Sena KihtirCHA 250 [facility] [address] [address]/07/2025Sena KihtirOther chronic pain G89.29[facility] [address] [place] [address]/08/2025Sena [facility]htirInter[facility] [address] [place] [address]/08/2025Sena KihtirCHA 250 [facility] [address] [address]/13/2025Sena [facility]htirInter[facility]ine [facility] Pain [address] [place] [address]/03/2025 Eliu Ramirez 104 [facility] [address] [facility] [address] [place] [address]/09/2025Sena KihtirMigraine G43.909 ; Low back pain, unspecified M54.50 ; Spondylosis without myelopathy or radiculopathy, lumbosacral region M47.817 and Other chronic pain G89.29BV 104 [facility] [id number] [facility] [address] [place] [address] 10/18/2025James ParmeleSpondylosis without myelopathy or radiculopathy, lumbosacral region M47.817 Assessments Encounter Date Diagnosis (ICD Code) Assessment Notes Treatment Notes Treatment Clinical Notes Section Notes 08/18/2025 Low back pain, unspecified (ICD- 10 - M54.50) 08/18/2025Migraine (ICD-10 - G43.909)08/18/2025Other chronic pain (ICD-10 - G89.29)10/18/2025Spondylosis without myelopathy or radiculopathy, lumbosacral region (ICD-10 - M47.817)08/18/2025Spondylosis without myelopathy or radiculopathy, lumbosacral region (ICD-10 - M47.817)08/18/2025Other chronic pain (ICD-10 - G89.29) Moira is a 39-year-old female with a pertinent past medical history significant for type II diabetes and epilepsy who is presenting with migraines and low back pain. She has been undergoing Botox injections every 12 weeks for migraines, and lumbar RFAs every 6 months at [facility] with benefit. She inquires about repeating these procedures today. I have referred the patient to [facility] for Botox injections for treatment of chronic migraines. I also placed order for repeat left and right L4-5, L5-S1 RFAs as she noted benefit in the past. Regarding medications, I recommended starting Ajovy for preventative treatment of chronic migraines, and the patient is agreeable to this. I sent a prescription to her pharmacy for Ajovy 225 mg/1.5mLQmonthly. She will return to clinic as needed. I will continue to monitor her progress, adjusting her treatment plan as needed. The diagnosis and treatment plans were explained, and the patient expressed understanding of the content. Plan: 1. Refer to [facility] for Botox injections for chronic migraines 2. Order repeat left and right L4-5, L5-S1 RFAs 3. Start Ajovy 4. Follow up as needed Discharge instructions reviewed verbally. Discussed the risks/benefits of prescribed medication. The patient was instructed to return to the office as scheduled and call with any questions, problems or concerns. 08/18/2025Maylin Quesada, am serving as a scribe to document services personally performed by Floresita Fair MD, based upon my observations and the provider's statements to me. All documentation has been reviewed by the aforementioned doctor prior to being entered into the official medical record. I, Floresita Fair MD attest that the above named individual is acting in scribe capacity, has observed my performance of the services and has documented them in accordance with my direction. The documentation recorded by the scribe accurately reflects the service I personally performed and the decisions made by me. Plan Of Treatment Pending Test Test Name Order Date Intervention: 2 08/18/2025 Insurance Providers Payer Name Payer Address Payer Phone Subscriber Number Group Number Insured Name Patient Relationship to Insured Coverage Start Date Coverage End Date [facility] [employer]AP [address] [address] [place] [address] [id number] Moira Douglas Self - patient is the insured Medical (General) History Medical History History ICD Code Diabetes (II) EpilepsyBilateral Carpal Tunnel SyndromeEdentulismAsthmaBipolarDepression HeadachesHigh CholesterolMigrainesSurgical History Surgery Date(Month/Year) Bilateral Carpal Tunnel Release Surgery 2014 & 2016 Hospitalization History Reason Date(Month/Year) surgical reasons
[2025-10-26 11:17] VITALS: BP 121/79; PULSE 93; RESP 18; TEMP 36.2; O2SAT 96; BMI 29.9
--- NOTE | 2025-10-26 11:41 | CRLHL7_ITS ---
For Patients: As a result of the Century Cures Act, medical imaging exams and procedure reports are released immediately into your electronic medical record. You may view this report before your referring provider. If you have questions, please contact your health care provider. INDICATION: pt stated back pain no chest pain, sensitive to any touch TECHNIQUE: Chest 2 views COMPARISON: 01/10/2023 FINDINGS: Cardiovascular and mediastinum: Heart size and vasculature are normal in caliber and appearance. Lungs and pleural spaces: Lungs are clear. No sign of infiltrate or mass. No sign of pleural effusion. No pneumothorax. Bones and soft tissues: No significant findings. IMPRESSION: No acute findings. Dictated by Chidi Jenkins MD @ 10/26/2025 12:25:09 PM (Electronically Signed)
--- NOTE | 2025-10-26 11:42 | ED.GENADULT ---
HPI - General Adult General Chief complaint: Back Injury/Pain Stated complaint: Upper back pain Time Seen by Provider: 10/26/25 11:28 Source: patient Mode of arrival: ambulatory Limitations: no limitations History of Present Illness HPI narrative: 40-year-old female coming in today complaining of back pain that is been present for 5 days. Pain is located on the left back, left of the spine. Does not radiate into the front. It radiates from the shoulder blade all the way down to the lower end of the ribs. Nothing makes it better. Touching it or moving makes it worse. She denies any trauma, falling. She denies pain with deep inspiration. She does not feel short of breath or lightheaded. She denies any fevers or chills. She states that the pain is getting worse and she can not manage it. She denies any urinary symptoms, no blood in her urine. No changes in the color sent her urine. She is not coughing. Related Data Home Medications ?Medication ?Instructions ?Recorded ?Confirmed bupropion HCl 150 mg 24 hr tablet, 150 mg PO DAILY 01/10/23 03/23/25 extended release (Wellbutrin XL) empagliflozin 25 mg tablet 25 mg PO DAILY 01/10/23 03/23/25 (Jardiance) lisinopril 10 mg tablet 10 mg PO DAILY 01/10/23 03/23/25 verapamil 240 mg 24 hr 240 mg PO QAM 01/10/23 03/23/25 capsule,extended release atorvastatin 10 mg tablet 10 mg PO HS 07/16/24 03/23/25 escitalopram oxalate 10 mg tablet 10 mg PO DAILY 07/16/24 03/23/25 nystatin 100,000 unit/gram topical 1 applic topical BID 02/01/25 03/23/25 cream fremanezumab-vfrm 225 mg/1.5 mL mg subcut 10/26/25 subcutaneous auto-injector (Ajovy) hydrocodone 5 mg-acetaminophen 325 1 tab PO 3XD PRN 10/26/25 10/26/25 mg tablet tirzepatide 10 mg/0.5 mL 10 mg subcut 10/26/25 subcutaneous pen injector (Saul) Previous Rx's ?Medication ?Instructions ?Recorded cyclobenzaprine 10 mg tablet 10 mg PO TID PRN muscle spasm #10 10/26/25 tabs ketorolac 10 mg tablet 10 mg PO TID 5 days #15 tabs 10/26/25 Allergies Allergy/AdvReac Type Severity Reaction Status Date / Time sumatriptan (From Imitrex) Allergy Verified 03/23/25 09:38 topiramate (From Topamax) Allergy Verified 03/23/25 09:38 cefaclor (From Ceclor) AdvReac Verified 03/23/25 09:38 ibuprofen AdvReac Verified 03/23/25 09:38 some insulins Allergy Uncoded 10/05/22 12:07 Review of Systems Status of ROS: Reports: 10 or more systems reviewed and unremarkable except as noted in History and below [facility] Medical History Tobacco use disorder ?F17.200 - Nicotine dependence, unspecified, uncomplicated (ICD-10) Adrenal nodule ?E27.9 - Disorder of adrenal gland, unspecified (ICD-10) Generalized anxiety disorder ?F41.1 - Generalized anxiety disorder (ICD-10) Depression ?F32.A - Depression, unspecified (ICD-10) Degenerative joint disease (DJD) of lumbar spine ?M47.816 - Spondylosis without myelopathy or radiculopathy, lumbar region (ICD-10) Hyperlipidemia ?E78.5 - Hyperlipidemia, unspecified (ICD-10) Opioid use disorder ?F11.90 - Opioid use, unspecified, uncomplicated (ICD-10) Borderline personality disorder ?F60.3 - Borderline personality disorder (ICD-10) Migraine ?G43.909 - Migraine, unspecified, not intractable, without status migrainosus (ICD-10) Hepatic steatosis ?K76.0 - Fatty (change of) liver, not elsewhere classified (ICD-10) Polycystic ovary disease ?E28.2 - Polycystic ovarian syndrome (ICD-10) Obesity ?E66.9 - Obesity, unspecified (ICD-10) Endometriosis ?N80.9 - Endometriosis, unspecified (ICD-10) GERD (gastroesophageal reflux disease) ?K21.9 - Gastro-esophageal reflux disease without esophagitis (ICD-10) Anxiety ?F41.9 - Anxiety disorder, unspecified (ICD-10) Hypertension ?I10 - Essential (primary) hypertension (ICD-10) Diabetes ?E11.9 - Type 2 diabetes mellitus without complications (ICD-10) Cardiomyopathy ?I42.9 - Cardiomyopathy, unspecified (ICD-10) Surgical History History of colposcopy ?Z98.890 - Other specified postprocedural states (ICD-10) History of carpal tunnel release ?Z98.890 - Other specified postprocedural states (ICD-10) H/O exploratory laparotomy ?Z98.890 - Other specified postprocedural states (ICD-10) H/O laparoscopy ?Z98.890 - Other specified postprocedural states (ICD-10) Status post cholecystectomy ?Z90.49 - Acquired absence of other specified parts of digestive tract (ICD-10) Family History Mother Heart disease Depression Brother Depression Father Depression Social History Narrative: She lives with her in [place]. She works at [employer]. She smokes a pack cigarettes a day. She does not drink alcohol. No recreational drug use. Code status is full. or mother would be healthcare power of tax attorney. What is your current living situation?: I presently have a place to live Problems where you live: no known problems Problems where you live details: n/a In the past 12 months, utilities in danger of being shut off: no In past 12 months, lack of transportation kept you from medical appts, meetings, work, or getting things needed for daily living: no In the past 12 mos, have been you worried that your food would run out before you had money to buy more?: never true In the past 12 mos, the food you bought just didn't last and you didn't have money to buy more?: never true Highest level of school completed/degree received: some college, no degree Smoking Status: Current every day smoker What tobacco products do you use: cigarettes Smoking packs per day: 1 Smoking cigarettes per day: 20.0 Do you use any of these nicotine containing products: Vaping Products Second hand tobacco smoke exposure: No How often do you have a drink containing alcohol: never How often do you have six or more drinks on one occasion: Never AUDIT-C Alcohol total score: 0 Non-prescribed substance use: former substance user Non-prescribed substance use details: hx of meth use Caffeine: Yes How often does anyone, including family, friends and others, physically hurt you: never How often does anyone, including family, friends and others, insult or talk down to you: never How often does anyone, including family, friends and others, threaten you with harm: never How often does anyone, including family, friends and others, scream or curse at you: never service: No Exam Narrative: Exam Narrative: Well-nourished well-developed patient in no acute distress, looks much older than stated age.. Alert and oriented x3. Answers questions appropriately. Flat affect. Patient speaks in full sentences without needing to catch her breath. The room smells very strongly of tobacco. HEENT: Normocephalic atraumatic. Pupils are equally round reactive to light. Extraocular muscles are intact. Conjunctivae are moist without any icterus noted. Moist mucous membranes. Patient has no teeth. Cardiovascular: Heart is regular rate and rhythm S1 and S2 are present without any murmurs. Lungs: Clear to auscultation bilaterally no wheezes rhonchi or rales are appreciated. Patient takes deep breaths without any discomfort. Abdomen: Soft and nontender nondistended with normal bowel sounds. No CVA tenderness. Skin: Well perfused without any obvious rashes. Back: Has normal appearance. She has no tenderness to palpation of the thoracic or lumbar spine. She jumps out of bed with gentle palpation of the left mid back. She however can take deep breaths without any discomfort. Do not see any rashes present. There is no swelling or erythema noted. Const: Vital Signs, click to edit/add: Vital Signs - 24 hr 10/26/25 11:17 Temperature 97.2 F L Pulse Rate [Pulse Oximeter] 93 Respiratory Rate 18 Blood Pressure [Ri ght Upper Arm] 121/79 Pulse Oximetry 96 Oxygen Delivery Me thod Room Air Course Course ED Course: Differential includes musculoskeletal pain, rib fracture- less likely given the wide distribution of discomfort and lack of trauma, shingles without a rash- less likely given the wide distribution that crosses multiple dermatomes. Consider kidney injury or renal stones-also less likely given the location of her discomfort and physical examination. IV was inserted and we did go ahead and proceed with blood work which was unremarkable. No significant elevation her white cell count, normal CRP. Two-view chest was done, read by me, does not show any abnormalities. Vital Signs Vital signs: Initial Vital Signs Temperature 97.2 F L 10/26/25 11:17 Temperature Source Temporal Artery Scan 10/26/25 11:17 Pulse Rate 93 10/26/25 11:17 Respiratory Rate 18 10/26/25 11:17 Blood Pressure 121/79 10/26/25 11:17 Blood Pressure Mean 93 10/26/25 11:17 Blood Pressure Position Sitting 10/26/25 11:17 Pulse Oximetry 96 10/26/25 11:17 Oxygen Delivery Method Room Air 10/26/25 11:17 Vital Signs Temperature 97.2 F L 10/26/25 11:17 Pulse Rate 93 10/26/25 11:17 Respiratory Rate 18 10/26/25 11:17 Blood Pressure 121/79 10/26/25 11:17 Pulse Oximetry 96 10/26/25 11:17 Oxygen Delivery Method Room Air 10/26/25 11:17 Temperature 97.2 F L 10/26/25 11:17 Pulse Rate 93 10/26/25 11:17 Respiratory Rate 18 10/26/25 11:17 Blood Pressure 121/79 10/26/25 11:17 Pulse Oximetry 96 10/26/25 11:17 Oxygen Delivery Method Room Air 10/26/25 11:17 Medical Decision Making MDM Narrative Medical decision making narrative: 40-year-old female with mid back pain. We discussed symptomatic treatment with Toradol and Flexeril. We discussed he lidocaine patches-not be used concurrently. Patient was in agreement, unhappy but had no other questions. Of note, patient does have an ibuprofen allergy listed, however she has had Toradol multiple times while in the ED and with her discharge medications and she has not had an issue in the past. Lab Data Lab results reviewed: Yes I reviewed the patient's lab results Labs: Lab Results 10/26/25 10/26/25 Range/Units 11:55 12:08 WBC 11.48 H (4.50-11.00) K/uL RBC 5.21 H (4.00-5.20) m/uL Hgb 14.8 (12.0-16.0) gm/dL Hct 47.5 (33.0-51.0) % MCV 91 (80-100) fL MCH 28 (26-34) pg MCHC 31 L (32-36) gm/dL RDW Coeff of Sammi 13.8 (11.5-15.5) % Plt Count 527 H (140-440) K/uL Neut % (Auto) 60.1 (42.0-72.0) % Lymph % (Auto) 30.8 (20-44) % [place] % (Auto) 5.4 (0.0-11.0) % Eos % (Auto) 2.7 (0.0-7.0) % Baso % (Auto) 0.8 (0.0-3.0) % Neut # (Auto) 6.90 (1.7-7.0) K/uL Lymph # (Auto) 3.50 H (0.90-2.90) K/uL [place] # (Auto) 0.60 (0.00-0.90) K/UL Eos # (Auto) 0.30 (0.00-0.50) K/uL Baso # (Auto) 0.10 (0.00-0.30) K/uL Abs Immat Gran (auto) 0.00 (0.00-0.30) K/uL Imm/Tot Granulo (auto) 0.2 % Sodium 132 L (135-149) mmol/L Potassium 4.3 (3.6-5.1) mmol/L Chloride 99 (96-114) mmol/L Carbon Dioxide 24 (20-32) mmol/L Anion Gap 9 (7-15) mEq/L BUN 12 (5-24) mg/dL Creatinine 0.7 (0.5-1.5) mg/dL Estimated Creat Clear 99.01 Estimated GFR 111 ml/min Glucose 108 (60-115) mg/dL Lactate 1.2 (0.5-1.9) mmol/L Calcium 9.4 (8.4-10.6) mg/dL Total Bilirubin 0.4 (0.1-1.5) mg/dL Direct Bilirubin 0.2 (0.0-0.5) mg/dL AST 20 (12-35) U/L ALT 20 (4-35) U/L Alkaline Phosphatase 87 (40-150) U/L C-Reactive Protein < 0.5 L (0.5-1.0) mg/dL Total Protein 8.0 (6.0-8.3) g/dL Albumin 4.5 (3.3-5.0) g/dL Lipase 108 (23-300) U/L Urine Color Yellow (Yellow) Urine Appearance Clear (Clear) Urine pH 5.5 (5.0-8.5) Ur Specific [place] 1.020 (1.000-1.030) Urine Protein Negative (Negative) Urine Glucose (UA) 2+ A (Negative) Urine Ketones Negative (Negative) Urine Blood Negative (Negative) Urine Nitrite Negative (Negative) Urine Bilirubin Negative (Negative) Urine Urobilinogen 0.2 (0.2-1.0) Ur Leukocyte Esterase Negative (Negative) Urine RBC 0-2 (0-2) Urine WBC 2-5 (0-5) Ur Squamous Epith Cells Few (None-Few) Urine Bacteria Few A (None) Imaging Data Chest x-ray: Attestation: I have reviewed the pertinent imaging results. Radiologist's impression: TECHNIQUE: Chest 2 views COMPARISON: 01/10/2023 FINDINGS: Cardiovascular and mediastinum: Heart size and vasculature are normal in caliber and appearance. Lungs and pleural spaces: Lungs are clear. No sign of infiltrate or mass. No sign of pleural effusion. No pneumothorax. Bones and soft tissues: No significant findings. IMPRESSION: No acute findings. Discharge Plan Discharge Clinical Impression: Back pain Patient Disposition: Home, Self-Care Condition: Stable Additional Instructions: Your workup today did not reveal any life-threatening reason for your pain. This is likely muscular pain. Recommend muscle relaxer, lidocaine patches to the area. Can also use heat to the area. Do not apply a lidocaine patch and use heat at the same time. Do not apply heat more than 20 minutes at a time every 1 to hours. Do not apply heat directly to the skin. Muscle relaxer (cyclobenzaprine/Flexeril) and pain medication (ketorolac/Toradol) both sent to the pharmacy. Prescriptions: New cyclobenzaprine 10 mg tablet 10 mg PO TID PRN (Reason: muscle spasm) Qty: 10 0RF ketorolac 10 mg tablet 10 mg PO TID 5 Days Qty: 15 0RF No Action atorvastatin 10 mg tablet 10 mg PO HS escitalopram oxalate 10 mg tablet 10 mg PO DAILY lisinopril 10 mg tablet 10 mg PO DAILY Patient Comments: TAKE ONE TABLET BY MOUTH DAILY verapamil 240 mg capsule,ext rel. pellets 24 hr 240 mg PO QAM Patient Comments: TAKE ONE CAPSULE BY MOUTH EVERY MORNING bupropion HCl [Wellbutrin XL] 150 mg tablet extended release 24 hr 150 mg PO DAILY Patient Comments: Take 1 tablet by mouth once a day - add to 300mg dose for 450mg total Jardiance 25 mg tablet 25 mg PO DAILY Patient Comments: TAKE ONE TABLET BY MOUTH ONE TIME DAILY nystatin 100,000 unit/gram cream 1 applic topical BID Ajovy Autoinjector 225 mg/1.5 mL auto-injector subcut Mounjaro 10 mg/0.5 mL pen injector 10 mg subcut hydrocodone-acetaminophen 5-325 mg tablet 1 tab PO 3XD PRN Follow Up/Referrals: Shena Aldana MD [Primary Care Provider, Family Practice] Stand Alone Forms: [facility] Info Instructions
[2025-10-26 12:03] LABS: Lactate* 1.2 mmol/L (0.5-1.9)
[2025-10-26 12:07] LABS: Hematocrit* 47.5 % (33.0-51.0); Hemoglobin* 14.8 gm/dL (12.0-16.0); Immature Granulocytes Pct Auto 0.2 %; Mean Corpuscular HGB Conc 31 gm/dL (32-36); Mean Corpuscular Hemoglobin 28 pg (26-34); Mean Corpuscular Volume 91 fL (80-100); RDW Coefficient of Variation % 13.8 % (11.5-15.5); Red Blood Count* 5.21 m/uL (4.00-5.20); White Blood Count* 11.48 K/uL (4.50-11.00)
[2025-10-26 12:11] LABS: Immature Granulocytes Abs Auto 0.00 K/uL (0.00-0.30); Lymphocytes Absolute Auto 3.50 K/uL (0.90-2.90)
[2025-10-26 12:22] LABS: Albumin* 4.5 g/dL (3.3-5.0); Chloride* 99 mmol/L (96-114)
[2025-10-26 12:23] LABS: Potassium* 4.3 mmol/L (3.6-5.1); Sodium* 132 mmol/L (135-149)
[2025-10-26 12:25] LABS: Blood Urea Nitrogen* 12 mg/dL (5-24); Creatinine* 0.7 mg/dL (0.5-1.5); Est. Creatinine Clearance* 99.01; Estimated Glomerular Filt Rate 111 ml/min
[2025-10-26 12:26] LABS: Appearance Urine Clear (Clear)
[2025-10-26 12:26] LABS: Alanine Aminotransferase* 20 U/L (4-35); Alkaline Phosphatase* 87 U/L (40-150); Anion Gap 9 mEq/L (7-15); Aspartate Amino Transferase* 20 U/L (12-35); Bilirubin Direct* 0.2 mg/dL (0.0-0.5); Bilirubin Total* 0.4 mg/dL (0.1-1.5); Calcium* 9.4 mg/dL (8.4-10.6); Carbon Dioxide* 24 mmol/L (20-32); Glucose* 108 mg/dL (60-115); Total Protein* 8.0 g/dL (6.0-8.3)
[2025-10-26 15:17] LABS: Slide Review Acceptable Review (Acceptable); Slide Review Reflex No
== END 2025-10-26 13:11 | disposition home or self-care (01) ==
PROVIDERS: Emergency Provider Family Medicine; PCP Family Medicine
DX: M54.6 Pain in thoracic spine (principal); F17.210 Nicotine dependence, cigarettes, uncomplicated
CPT/HCPCS: 36415; 71046; 80048; 80076; 81001; 83605; 83690; 85025; 86140; 87086; 99284